=== PATIENT | female | born 1970 | race Caucasian/White ===

== ENCOUNTER 2018-02-02 14:00 | Emergency (ER) | payer OTHER ==
[2018-02-02 14:07] VITALS: RESP 18
[2018-02-02] MEDS ORDERED: SODIUM CHLORIDE 0.9% 500 ML IV STA (14:30)
--- NOTE | 2018-02-02 14:42 | ED ---
Arrhythmia/Palpitations HPI - General Chief Complaint: Arrhythmia/Palpitations Stated Complaint: low pulse Time Seen by Provider: 02/02/18 14:24 Source: patient, RN notes reviewed Mode of arrival: ambulatory Limitations: no limitations - History of Present Illness Initial Comments: This a 47-year-old female presents emergency Department chief complaint of low heart rate. Patient states that she went yesterday to [facility] for her Prolixin injection. She had was found to have a heart rate of 45. She was instructed emergency department yesterday though refuse. Patient is brought to emergency department today by [facility]. Patient has no complaints. Denies chest pain, shortness breath, headache, dizziness, nausea vomiting. Patient denies illicit drug use. Patient states that she takes her psychiatric medications as directed daily. Patient denies any prior cardiac disease. - Related Data Home Medications Medication Instructions Recorded Confirmed PARoxetine [Paxil] 10 mg PO DAILY 02/02/18 02/02/18 Paliperidone IM [Invega Sustenna] 234 mg IM Q30D 02/02/18 02/02/18 QUEtiapine [SEROquel] 400 mg PO HS 02/02/18 02/02/18 Allergies Allergy/AdvReac Type Severity Reaction Status Date / Time aspirin Allergy Unknown Verified 02/02/18 14:36 Review of Systems ROS Statement: Those systems with pertinent positive or pertinent negative responses have been documented in the HPI. ROS Other: All systems not noted in ROS Statement are negative. Past Medical History Past Medical History: No Reported History History of Any Multi-Drug Resistant Organisms: None Reported Past Surgical History: No Surgical Hx Reported Past Psychological History: Schizophrenia Smoking Status: Never smoker Past Alcohol Use History: None Reported Past Drug Use History: None Reported General Exam Limitations: no limitations General appearance: alert, in no apparent distress Head exam: Present: atraumatic, normocephalic, normal inspection Eye exam: Present: normal appearance, PERRL, EOMI. Absent: scleral icterus, conjunctival injection, periorbital swelling Neck exam: Present: normal inspection, full ROM. Absent: tenderness, meningismus, lymphadenopathy Respiratory exam: Present: normal lung sounds bilaterally. Absent: respiratory distress, wheezes, rales, rhonchi, stridor Cardiovascular Exam: Present: regular rate, normal rhythm, normal heart sounds. Absent: systolic murmur, diastolic murmur, rubs, gallop, clicks Skin exam: Present: warm, dry, intact, normal color. Absent: rash Course Vital Signs 02/02/18 02/02/18 14:03 15:59 Temperature 98.2 F Pulse Rate 65 78 Respiratory 18 18 Rate Blood Pressure 161/74 O2 Sat by Pulse 98 98 Oximetry EKG Findings - EKG Comments: EKG Findings:: EKG born at 15:50 normal sinus rhythm with rate of 71 W[place] 136 QRS 96 QT/QTC 394/428 Medical Decision Making - Medical Decision Making 47-year-old female presented to emergency from from [facility] for low heart rate. Patient's heart rate has been neck 70s to 100s in the emergency department. Patient did have multiple PVCs. She is asymptomatic. Patient was positive for cocaine and marijuana. We discussed that drug abuse can cause cardiac issues and multiple other medical issues. She will follow up with [facility] and return for any worsening symptoms. - Lab Data Result diagrams: 02/02/18 14:40 02/02/18 14:40 Lab Results 02/02/18 02/02/18 02/02/18 Range/Units 14:40 14:40 14:40 WBC 8.7 (3.8-10.6) k/uL RBC 4.36 (3.80-5.40) m/uL Hgb 13.1 (11.4-16.0) gm/dL Hct 40.3 (34.0-46.0) % MCV 92.4 (80.0-100.0) fL MCH 30.0 (25.0-35.0) pg MCHC 32.5 (31.0-37.0) g/dL RDW 13.9 (11.5-15.5) % Plt Count 292 (150-450) k/uL Neutrophils % 74 % Lymphocytes % 18 % Monocytes % 6 % Eosinophils % 1 % Basophils % 1 % Neutrophils # 6.4 (1.3-7.7) k/uL Lymphocytes # 1.5 (1.0-4.8) k/uL Monocytes # 0.5 (0-1.0) k/uL Eosinophils # 0.1 (0-0.7) k/uL Basophils # 0.0 (0-0.2) k/uL PT (9.0-12.0) sec INR (<1.2) APTT (22.0-30.0) sec Sodium 141 (137-145) mmol/L Potassium 3.7 (3.5-5.1) mmol/L Chloride 108 H (98-107) mmol/L Carbon Dioxide 24 (22-30) mmol/L Anion Gap 9 mmol/L BUN 6 L (7-17) mg/dL Creatinine 0.72 (0.52-1.04) mg/dL Est GFR (CKD-EPI)AfAm >90 (>60 ml/min/1.73 sqM) Est GFR (CKD-EPI)NonAf >90 (>60 ml/min/1.73 sqM) Glucose 140 H (74-99) mg/dL Calcium 9.2 (8.4-10.2) mg/dL Magnesium 1.9 (1.6-2.3) mg/dL Total Bilirubin 0.2 (0.2-1.3) mg/dL AST 15 (14-36) U/L ALT 14 (9-52) U/L Alkaline Phosphatase 78 (38-126) U/L Total Creatine Kinase 103 (30-135) U/L CK-MB (CK-2) 0.7 (0.0-2.4) ng/mL CK-MB (CK-2) Rel Index 0.7 Troponin I <0.012 (0.000-0.034) ng/mL Total Protein 6.2 L (6.3-8.2) g/dL Albumin 3.5 (3.5-5.0) g/dL TSH 1.010 (0.465-4.680) mIU/L Urine Opiates Screen (NotDetected) Ur Oxycodone Screen (NotDetected) Urine Methadone Screen (NotDetected) Ur Propoxyphene Screen (NotDetected) Ur Barbiturates Screen (NotDetected) U Tricyclic Antidepress (NotDetected) Ur Phencyclidine Scrn (NotDetected) Ur Amphetamines Screen (NotDetected) U Methamphetamines Scrn (NotDetected) U Benzodiazepines Scrn (NotDetected) Urine Cocaine Screen (NotDetected) U Marijuana (THC) Screen (NotDetected) 02/02/18 02/02/18 Range/Units 14:40 14:50 WBC (3.8-10.6) k/uL RBC (3.80-5.40) m/uL Hgb (11.4-16.0) gm/dL Hct (34.0-46.0) % MCV (80.0-100.0) fL MCH (25.0-35.0) pg MCHC (31.0-37.0) g/dL RDW (11.5-15.5) % Plt Count (150-450) k/uL Neutrophils % % Lymphocytes % % Monocytes % % Eosinophils % % Basophils % % Neutrophils # (1.3-7.7) k/uL Lymphocytes # (1.0-4.8) k/uL Monocytes # (0-1.0) k/uL Eosinophils # (0-0.7) k/uL Basophils # (0-0.2) k/uL PT 9.8 (9.0-12.0) sec INR 1.0 (<1.2) APTT 24.9 (22.0-30.0) sec Sodium (137-145) mmol/L Potassium (3.5-5.1) mmol/L Chloride (98-107) mmol/L Carbon Dioxide (22-30) mmol/L Anion Gap mmol/L BUN (7-17) mg/dL Creatinine (0.52-1.04) mg/dL Est GFR (CKD-EPI)AfAm (>60 ml/min/1.73 sqM) Est GFR (CKD-EPI)NonAf (>60 ml/min/1.73 sqM) Glucose (74-99) mg/dL Calcium (8.4-10.2) mg/dL Magnesium (1.6-2.3) mg/dL Total Bilirubin (0.2-1.3) mg/dL AST (14-36) U/L ALT (9-52) U/L Alkaline Phosphatase (38-126) U/L Total Creatine Kinase (30-135) U/L CK-MB (CK-2) (0.0-2.4) ng/mL CK-MB (CK-2) Rel Index Troponin I (0.000-0.034) ng/mL Total Protein (6.3-8.2) g/dL Albumin (3.5-5.0) g/dL TSH (0.465-4.680) mIU/L Urine Opiates Screen Not Detected (NotDetected) Ur Oxycodone Screen Not Detected (NotDetected) Urine Methadone Screen Not Detected (NotDetected) Ur Propoxyphene Screen Not Detected (NotDetected) Ur Barbiturates Screen Not Detected (NotDetected) U Tricyclic Antidepress Not Detected (NotDetected) Ur Phencyclidine Scrn Not Detected (NotDetected) Ur Amphetamines Screen Not Detected (NotDetected) U Methamphetamines Scrn Not Detected (NotDetected) U Benzodiazepines Scrn Not Detected (NotDetected) Urine Cocaine Screen Detected H (NotDetected) U Marijuana (THC) Screen Detected H (NotDetected) Disposition Clinical Impression: PVCs (premature ventricular contractions), Cocaine use, Marijuana use Disposition: HOME SELF-CARE Condition: Stable Instructions: Polysubstance Abuse (ED) Additional Instructions: Please return to the Emergency Department if symptoms worsen or any other concerns. Is patient prescribed a controlled substance at d/c from ED?: No Referrals: Ramirez Strar MD [Primary Care Provider] - 1-2 days Time of Disposition: 16:11
[2018-02-02 15:04] LABS: Basophils % (A) 1 %; Eosinophils # (A) 0.1 k/uL (0-0.7); Eosinophils % (A) 1 %; HCT 40.3 % (34.0-46.0); HGB 13.1 gm/dL (11.4-16.0); Lymphocytes # (A) 1.5 k/uL (1.0-4.8); Lymphocytes % (A) 18 %; MCHC 32.5 g/dL (31.0-37.0); MCV 92.4 fL (80.0-100.0); Mean Platelet Volume 6.8; Monocytes # (A) 0.5 k/uL (0-1.0); Monocytes % (A) 6 %; Neutrophils # (A) 6.4 k/uL (1.3-7.7); Neutrophils % (A) 74 %; Platelet Count 292 k/uL (150-450); RBC 4.36 m/uL (3.80-5.40); RDW 13.9 % (11.5-15.5); WBC 8.7 k/uL (3.8-10.6)
[2018-02-02 15:09] LABS: ALT 14 U/L (9-52); AST 15 U/L (14-36); Albumin 3.5 g/dL (3.5-5.0); Alkaline Phosphatase 78 U/L (38-126); Anion Gap 9 mmol/L; Blood Urea Nitrogen 6 mg/dL (7-17); Calcium 9.2 mg/dL (8.4-10.2); Carbon Dioxide 24 mmol/L (22-30); Chloride 108 mmol/L (98-107); Glucose 140 mg/dL (74-99); Magnesium 1.9 mg/dL (1.6-2.3); Partial Thromboplastin Time 24.9 sec (22.0-30.0); Potassium 3.7 mmol/L (3.5-5.1); Prothrombin Time 9.8 sec (9.0-12.0); Sodium 141 mmol/L (137-145); Total Bilirubin 0.2 mg/dL (0.2-1.3); Total Protein 6.2 g/dL (6.3-8.2)
[2018-02-02 15:18] LABS: Creatine Kinase 103 U/L (30-135)
--- NOTE | 2018-02-02 15:23 | XR ---
EXAMINATION TYPE: XR chest 2V DATE OF EXAM: 02/02/2018 COMPARISON: NONE HISTORY: Dysrhythmia, bradycardia TECHNIQUE: Frontal and lateral views of the chest are obtained. FINDINGS: Patient is rotated. Retrocardiac density with central lucency is noted. No pneumothorax or pleural effusion. Heart size is within normal limits. There are overlying cardiac leads. Pulmonary va scularity and liana within normal limits. IMPRESSION: Findings may be due to hiatal hernia. Difficult to exclude lower lobe atelectasis or pne umonia. Follow-up as indicated.
[2018-02-02 15:30] LABS: Creatine Kinase MB 0.7 ng/mL (0.0-2.4); Troponin I <0.012 ng/mL (0.000-0.034)
[2018-02-02 15:33] LABS: Amphetamine Screen,Urine Not Detected (NotDetected); Barbiturate Screen,Urine Not Detected (NotDetected); Benzodiazepines Screen,Urine Not Detected (NotDetected); Cocaine Screen,Urine Detected (NotDetected); Methadone Screen, Urine Not Detected (NotDetected); Opiate Screen,Urine Not Detected (NotDetected); Oxycodone Screen, Urine Not Detected (NotDetected); Phencyclidine Screen,Urine Not Detected (NotDetected); Tricyclic Antidepressant,Urine Not Detected (NotDetected); Urn Cannabinoid Scrn Detected (NotDetected)
[2018-02-02 16:09] VITALS: BP 140/87; PULSE 83
[2018-02-02 16:18] VITALS: TEMP 98
== END 2018-02-02 16:15 | disposition home or self-care (01) ==
LOC: EC 14:00
DX: I49.3 Ventricular premature depolarization (principal); F14.90 Cocaine use, unspecified, uncomplicated; F12.90 Cannabis use, unspecified, uncomplicated; F20.9 Schizophrenia, unspecified; Z79.899 Other long term (current) drug therapy; Z88.6 Allergy status to analgesic agent
CPT/HCPCS: 36415; 71046; 80053; 80306; 82550; 82553; 83735; 84443; 84484; 85025; 85610; 85730; 93005; 99285

== ENCOUNTER 2019-12-06 09:20 | Emergency (ER) | payer OTHER ==
[2019-12-06 09:32] VITALS: RESP 18
--- NOTE | 2019-12-06 09:54 | ED ---
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 Patient states she does not know why she is here. Patient does admit that she used to use drugs. The door states that she's been petition for not caring for herself reported is not taking her medications has not been going to her appointment. Patient was checked on by [facility]. Her living situation and appears to be unkempt as herself has been on. She has no physical complaints denies being suicidal or homicidal. (Allan Fagan) - Related Data Home Medications Medication Instructions Recorded Confirmed PARoxetine [Paxil] 10 mg PO DAILY 02/02/18 12/06/19 QUEtiapine [SEROquel] 400 mg PO HS 02/02/18 12/06/19 Allergies Allergy/AdvReac Type Severity Reaction Status Date / Time No Known Allergies Allergy Verified 12/06/19 09:32 Review of Systems ROS Other: All systems not noted in ROS Statement are negative. <Allan Fagan - Last Filed: 12/06/19 09:52> ROS Other: All systems not noted in ROS Statement are negative. <Al Murray - Last Filed: 12/06/19 13:29> ROS Statement: Those systems with pertinent positive or pertinent negative responses have been documented in the HPI. Past Medical History Past Medical History: No Reported History History of Any Multi-Drug Resistant Organisms: None Reported Past Surgical History: No Surgical Hx Reported Past Psychological History: Schizophrenia Smoking Status: Current every day smoker Past Alcohol Use History: None Reported Past Drug Use History: Cocaine, Marijuana <Allan Fagan - Last Filed: 12/06/19 09:52> General Exam Limitations: no limitations General appearance: alert, in no apparent distress Head exam: Present: atraumatic, normocephalic, normal inspection Eye exam: Present: normal appearance, PERRL, EOMI. Absent: scleral icterus, conjunctival injection, periorbital swelling Neck exam: Present: normal inspection, full ROM Respiratory exam: Present: normal lung sounds bilaterally. Absent: respiratory distress, wheezes, rales, rhonchi, stridor Cardiovascular Exam: Present: regular rate, normal rhythm, normal heart sounds. Absent: systolic murmur, diastolic murmur, rubs, gallop, clicks GI/Abdominal exam: Present: soft, normal bowel sounds. Absent: distended, tenderness, guarding, rebound, rigid Neurological exam: Present: alert, oriented X3 Psychiatric exam: Present: flat affect Skin exam: Present: warm, dry, intact, normal color. Absent: rash <Allan Fagan - Last Filed: 12/06/19 09:52> Course <Al Murray - Last Filed: 12/06/19 13:29> Vital Signs 12/06/19 09:26 Temperature 98.1 F Pulse Rate 81 Respiratory 18 Rate Blood Pressure 131/83 O2 Sat by Pulse 98 Oximetry - Reevaluation(s) Reevaluation #1: 12/06/19 13:27 PA supervision: I personally do a [id number] evaluation the patient he has present on petition for evaluation she has a history of schizophrenia stent taking care of herself and taking medication. I did fill out a clinical certification on this patient. (Al Murray) Medical Decision Making - Lab Data Lab Results 12/06/19 Range/Units 09:50 Urine Opiates Screen Not Detected (NotDetected) Ur Oxycodone Screen Not Detected (NotDetected) Urine Methadone Screen Not Detected (NotDetected) Ur Propoxyphene Screen Not Detected (NotDetected) Ur Barbiturates Screen Not Detected (NotDetected) U Tricyclic Antidepress Not Detected (NotDetected) Ur Phencyclidine Scrn Not Detected (NotDetected) Ur Amphetamines Screen Not Detected (NotDetected) U Methamphetamines Scrn Not Detected (NotDetected) U Benzodiazepines Scrn Not Detected (NotDetected) Urine Cocaine Screen Not Detected (NotDetected) U Marijuana (THC) Screen Not Detected (NotDetected) Disposition <Allan Fagan - Last Filed: 12/06/19 09:52> <Al Murray - Last Filed: 12/06/19 13:29> Clinical Impression: Schizophrenia Disposition: ADMITTED IP TO THIS HOSP Condition: Fair Referrals: None,Stated [Primary Care Provider] - 1-2 days
[2019-12-06 10:49] LABS: Amphetamine Screen,Urine Not Detected (NotDetected); Barbiturate Screen,Urine Not Detected (NotDetected); Benzodiazepines Screen,Urine Not Detected (NotDetected); Cocaine Screen,Urine Not Detected (NotDetected); Methadone Screen, Urine Not Detected (NotDetected); Opiate Screen,Urine Not Detected (NotDetected); Oxycodone Screen, Urine Not Detected (NotDetected); Phencyclidine Screen,Urine Not Detected (NotDetected); Tricyclic Antidepressant,Urine Not Detected (NotDetected); Urn Cannabinoid Scrn Not Detected (NotDetected)
[2019-12-06 14:27] LABS: Basophils % (A) 0 %; Eosinophils # (A) 0.1 k/uL (0-0.7); Eosinophils % (A) 1 %; HCT 37.3 % (34.0-46.0); HGB 12.1 gm/dL (11.4-16.0); Lymphocytes # (A) 2.1 k/uL (1.0-4.8); Lymphocytes % (A) 23 %; MCH 30.5 pg (25.0-35.0); MCHC 32.4 g/dL (31.0-37.0); MCV 94.1 fL (80.0-100.0); Mean Platelet Volume 6.6; Monocytes # (A) 0.2 k/uL (0-1.0); Monocytes % (A) 3 %; Neutrophils # (A) 6.7 k/uL (1.3-7.7); Neutrophils % (A) 72 %; Platelet Count 393 k/uL (150-450); RBC 3.96 m/uL (3.80-5.40); RDW 13.8 % (11.5-15.5); WBC 9.3 k/uL (3.8-10.6)
[2019-12-06 14:31] LABS: Appearance,Urine Clear (Clear); Bacteria,Urine Rare /hpf; Bilirubin,Urine Negative (Negative); Blood,Urine Negative (Negative); Color,Urine Light Yellow; Glucose,Urine (UA) Negative (Negative); Ketones,Urine Negative (Negative); Leukocyte Esterase,Urine Small (Negative); Nitrite,Urine Positive (Negative); PH, Urine 5.5 (5.0-8.0); Protein,Urine Negative (Negative); RBC,Urine 1 /hpf (0-5); Specific Gravity,Urine 1.007 (1.001-1.035); Squamous Epithelial Cell,Urine 1 /hpf (0-4); Urobilinogen,Urine <2.0 mg/dL (<2.0); WBC,Urine 5 /hpf (0-5)
[2019-12-06 14:53] LABS: ALT 14 U/L (4-34); AST 22 U/L (14-36); African American GFR (CKD) >90 (>60 ml/min/1.73 sqM); Albumin 3.2 g/dL (3.5-5.0); Alkaline Phosphatase 69 U/L (38-126); Anion Gap 5 mmol/L; Blood Urea Nitrogen 10 mg/dL (7-17); Calcium 8.7 mg/dL (8.4-10.2); Carbon Dioxide 26 mmol/L (22-30); Chloride 105 mmol/L (98-107); Glucose 89 mg/dL (74-99); Non-African American GFR(CKD) >90 (>60 ml/min/1.73 sqM); Potassium 4.3 mmol/L (3.5-5.1); Sodium 136 mmol/L (137-145); Total Bilirubin 0.4 mg/dL (0.2-1.3); Total Protein 5.9 g/dL (6.3-8.2)
[2019-12-06 18:19] VITALS: BP 132/80; PULSE 80; TEMP 98.2
== END 2019-12-06 20:23 | disposition other institution (70) ==
LOC: EC 09:20 → EEVIPCON 09:20 → EC 20:23
DX: F20.9 Schizophrenia, unspecified (principal); F17.200 Nicotine dependence, unspecified, uncomplicated; Z79.899 Other long term (current) drug therapy
CPT/HCPCS: 36415; 80053; 80306; 81001; 81025; 82075; 85025; 99284

== ENCOUNTER 2020-11-13 19:13 | Inpatient (IN) | payer MEDICAID, OTHER ==
--- NOTE | 2020-11-13 19:47 | ED ---
General Adult HPI - General Source: patient, EMS, RN notes reviewed Mode of arrival: EMS Limitations: altered mental status <Allan Fagan - Last Filed: 11/13/20 20:50> <Al Kinney - Last Filed: 11/13/20 20:59> - General Stated complaint: Mental Health Time Seen by Provider: 11/13/20 19:15 - History of Present Illness Initial comments: 50-year-old female presents to the emergency Department with police, via EMS for psychiatric evaluation. Patient was found breaking windows are department. Patient has history of schizophrenia. She has meant to cocaine use, alcohol use. Patient denies any physical injury denies any lacerations. Patient states she does get Paxil and Haldol. (Allan Fagan) - Related Data Home Medications Medication Instructions Recorded Confirmed No Known Home Medications 11/13/20 11/13/20 Allergies Allergy/AdvReac Type Severity Reaction Status Date / Time No Known Allergies Allergy Verified 12/06/19 09:32 Review of Systems ROS Other: All systems not noted in ROS Statement are negative. <Allan Fagan - Last Filed: 11/13/20 20:50> ROS Other: All systems not noted in ROS Statement are negative. <Al Kinney - Last Filed: 11/13/20 20:59> ROS Statement: Those systems with pertinent positive or pertinent negative responses have been documented in the HPI. Past Medical History Past Medical History: No Reported History History of Any Multi-Drug Resistant Organisms: None Reported Past Surgical History: No Surgical Hx Reported Past Psychological History: Schizophrenia Smoking Status: Current every day smoker Past Alcohol Use History: None Reported Past Drug Use History: Cocaine, Marijuana <Allan Fagan - Last Filed: 11/13/20 20:50> General Exam Limitations: altered mental status General appearance: alert, in no apparent distress ENT exam: Present: mucous membranes moist. Absent: normal exam, normal oropharynx (No dentition) Neck exam: Present: normal inspection, full ROM. Absent: tenderness, meningismus, lymphadenopathy Respiratory exam: Present: normal lung sounds bilaterally. Absent: respiratory distress, wheezes, rales, rhonchi, stridor Cardiovascular Exam: Present: regular rate, normal rhythm, normal heart sounds. Absent: systolic murmur, diastolic murmur, rubs, gallop, clicks Neurological exam: Present: alert Psychiatric exam: Present: anxious Skin exam: Present: warm, dry, intact, normal color. Absent: rash <Allan Fagan - Last Filed: 11/13/20 20:50> Course Vital Signs 11/13/20 19:15 Temperature 98.1 F Pulse Rate 98 Respiratory 16 Rate Blood Pressure 131/88 O2 Sat by Pulse 95 Oximetry Medical Decision Making <Allan Fagan - Last Filed: 11/13/20 20:50> <Al Kinney - Last Filed: 11/13/20 20:59> - Medical Decision Making Patient will be admitted for psychiatric treatment. (lAlan Fagan) Patient had been evaluated by EPS and does require inpatient psychiatric evaluat ion treatment. I did complete a clinical certification on this patient after evaluation. She is acutely psychotic. (Al Kinney) Disposition <Allan Fagan - Last Filed: 11/13/20 20:50> <Al Kinney - Last Filed: 11/13/20 20:59> Clinical Impression: Psychosis, Schizophrenia Disposition: TRANSFER TO PSYCH HOSP/UNIT Condition: Stable Referrals: None,Stated [Primary Care Provider] - 1-2 days
[2020-11-13] MEDS ORDERED: MAGNESIUM HYDROXIDE 2,400 MG/10 ML CUP PO PRN (22:24)
[2020-11-13] MEDS ORDERED: ACETAMINOPHEN TAB 325 MG TAB PO PRN (22:24)
[2020-11-13] MEDS ORDERED: LORazepam 1 MG TAB PO PRN (22:24)
[2020-11-13] MEDS ORDERED: MAG HYDROX/AL HYDROX/SIMETH 30 ML CUP PO PRN (22:24)
[2020-11-13] MEDS ORDERED: HALOPERIDOL LACTATE 5 MG/ML 1 ML VIAL IM PRN (22:26)
[2020-11-13] MEDS ORDERED: haloperidoL 1 MG TAB PO PRN (22:26)
[2020-11-13] MEDS ORDERED: LORazepam 2 MG/ML INJ IM PRN (22:26)
[2020-11-13 22:56] LABS: Amphetamine Screen,Urine Not Detected (NotDetected); Benzodiazepines Screen,Urine Not Detected (NotDetected); Cocaine Screen,Urine Not Detected (NotDetected); Methadone Screen, Urine Not Detected (NotDetected); Opiate Screen,Urine Not Detected (NotDetected); Phencyclidine Screen,Urine Not Detected (NotDetected); Tricyclic Antidepressant,Urine Not Detected (NotDetected); Urn Cannabinoid Scrn Detected (NotDetected)
[2020-11-13 22:57] LABS: Barbiturate Screen,Urine Not Detected (NotDetected); Oxycodone Screen, Urine Not Detected (NotDetected)
[2020-11-13 23:22] LABS: Appearance,Urine Cloudy (Clear); Bacteria,Urine Few /hpf; Bilirubin,Urine Negative (Negative); Blood,Urine Trace (Negative); Color,Urine Yellow; Glucose,Urine (UA) Negative (Negative); Ketones,Urine Negative (Negative); Leukocyte Esterase,Urine Moderate (Negative); Mucus,Urine Rare /hpf; Nitrite,Urine Negative (Negative); PH, Urine 5.5 (5.0-8.0); Protein,Urine Negative (Negative); RBC,Urine 1 /hpf (0-5); Specific Gravity,Urine 1.023 (1.001-1.035); Squamous Epithelial Cell,Urine <1 /hpf (0-4); WBC,Urine 25 /hpf (0-5)
--- NOTE | 2020-11-14 04:53 | P.PN ---
Progress Note - Text Progress Note Date: 11/14/20 patient was not appropriate for evaluation today
[2020-11-14] MEDS: haloperidoL 5 MG TAB PO SCH ×2 (13:44→22:23)
--- NOTE | 2020-11-14 15:36 | HP ---
HISTORY AND PHYSICAL DATE OF SERVICE: 11/14/2020 IDENTIFYING DATA: The patient is a 50-year-old female. She resides in her own apartment. She presented to the ED following petition completed by Police. HISTORY OF PRESENTING ILLNESS: The patient did not provide any information and in fact declined to talk altogether. According to records, the patient was at her apartment. She apparently was breaking windows in her apartment. Neighbors called police. The police came to the apartment. She was sitting in the apartment naked. Police found that her apartment essentially was in an unlivable situation. She had a garbage stockpiled and the apartment windows were broken. There were cockroaches and other bugs throughout the apartment. The patient resisted talking to police and did not provide any information to police in regards to her current situation. [facility] provided information about the patient, including that she was open for care from 1997 until 2019. She was followed by [facility] from [id number]. She has a diagnosis of schizophrenia. She had 2 past State Hospitalizations at [facility] for one month each in 1997 in 1998. She had 3 previous psychiatric hospitalizations at this facility in 1998, 2002 and 2004. Her last inpatient was on November 2019. She has had several crisis residential placements and adult day treatment in the past. Her last medications were noted to be Paxil 10 mg a day, Seroquel 400 mg at bedtime, Invega 234 mg IM monthly, Abilify 5 mg daily and Aristada 186 mg IM q.2 months. It is unclear when the last time she was taking any medications. Her case at [facility] was closed in February 2020. We have no further information available at present. The patient is admitted for further evaluation. The patient has been diagnosed with schizophrenia. SUBSTANCE USE HISTORY: She has had a past use of cocaine and marijuana. PAST MEDICAL HISTORY: Uncertain. FAMILY AND SOCIAL HISTORY: No information available. She has a 6 grade education. She has had a public guardian since 1992. MENTAL STATUS EXAM: Patient was lying in bed. She was awake. She declined to answer any questions. I posed a number of questions to her. Her only comment was that she had talked to the nurse already and she did not have anything more to say. She had a blunted affect. Mood issues and thought disorder issues were difficult to assess. It was unclear whether she had any thoughts of harm. She did not respond to any cognitive questions. PHYSICAL EXAMINATION: As per medical consultation of Dr. Pearson. ASSESSMENT: This is a 50-year-old female presents with schizophrenia. It appears that she has stopped taking medications most likely a number of months back. We have no information about her best level of function over the last year or over the last several years. She has had long-term mental health issues and mental health intervention. It does appear as though she has become more significantly psychotic leading to disruptive behavior in her home that brought police to her attention. STRENGTHS: Include that she has been able to maintain herself to some degree independently. WEAKNESS: Includes her inability to adequately care for herself in the present day. DIAGNOSIS: Schizophrenia. RECOMMENDATIONS: Patient will be admitted for comprehensive medical psychiatric and psychosocial evaluation. We will engage the patient in individual and group therapeutic activities. I will start the patient on Haldol 10 mg twice a day. We could consider using IM medication if she prefers over oral. She is on petition. We may ultimately revert back to using IM medications if necessary. We will focus on stabilization and discharge planning. MMLAZARUSL / ILDAN: [id number] /
[2020-11-15 07:35] LABS: Basophils % (A) 0 %; Eosinophils # (A) 0.1 k/uL (0-0.7); Eosinophils % (A) 2 %; HCT 40.2 % (34.0-46.0); HGB 13.4 gm/dL (11.4-16.0); Lymphocytes % (A) 30 %; MCH 31.7 pg (25.0-35.0); MCHC 33.4 g/dL (31.0-37.0); MCV 94.7 fL (80.0-100.0); Mean Platelet Volume 7.3; Monocytes # (A) 0.4 k/uL (0-1.0); Monocytes % (A) 7 %; Neutrophils # (A) 3.7 k/uL (1.3-7.7); Neutrophils % (A) 58 %; Platelet Count 231 k/uL (150-450); RBC 4.24 m/uL (3.80-5.40); RDW 13.6 % (11.5-15.5); WBC 6.4 k/uL (3.8-10.6)
[2020-11-15 07:53] LABS: ALT 14 U/L (4-34); AST 23 U/L (14-36); African American GFR (CKD) >90 (>60 ml/min/1.73 sqM); Albumin 3.4 g/dL (3.5-5.0); Alkaline Phosphatase 63 U/L (38-126); Anion Gap 3 mmol/L; Blood Urea Nitrogen 16 mg/dL (7-17); Calcium 8.6 mg/dL (8.4-10.2); Carbon Dioxide 29 mmol/L (22-30); Chloride 106 mmol/L (98-107); Glucose 84 mg/dL (74-99); Non-African American GFR(CKD) >90 (>60 ml/min/1.73 sqM); Potassium 4.4 mmol/L (3.5-5.1); Sodium 138 mmol/L (137-145); Total Bilirubin 0.3 mg/dL (0.2-1.3)
[2020-11-15] MEDS: haloperidoL 5 MG TAB PO SCH ×2 (09:21→21:11)
[2020-11-15 14:02] LABS: Chol/HDL Ratio 3.61; Cholesterol 159 mg/dL (0-200); LDL Cholesterol,Calculated 99.8 mg/dL (0.0-131.0)
[2020-11-15 15:05] LABS: Hemoglobin A1C 5.5 % (4.0-6.0)
--- NOTE | 2020-11-15 20:32 | P.HPIM ---
History of Present Illness H&P Date: 11/15/20 The patient was seen with the [facility] RN Cindy. I was never alone with the patient. The patient is a 50 yo F with a PMH of schizophrenia who was brought into the emergency room under police custody due to strange and aggressive behavior. The patient was admitted to the mental health unit where she was seen and evaluated. The patient reports she does not recall why she was brought into the emergency room. She says that she is currently homeless.she denied any physical complaints at the time of interview. Denied chest discomfort, shortness of breath, fever, chills, nausea, vomiting, abdominal pain, diarrhea. Denied tobacco, alcohol, or drug abuse. urine toxicology in the emergency room was positive for marijuana. Review of systems: Pertinent positives and negatives as discussed in HPI, a complete review of systems was performed and all other systems are negative. Physical examination: General: non toxic, no distress, appears older than stated age, frail Derm: scattered healing ulcers with scabs, no unusual ecchymoses, warm, dry Head: atraumatic, normocephalic, symmetric Eyes: EOMI, no lid lag, anicteric sclera, pupils equal round reactive to light ENT: Nose and ears atraumatic, no thrush, no pharyngeal erythema Neck: No thyromegaly, no cervical lymphadenopathy, trachea midline, supple Mouth: no lip lesion, mucus membranes moist Cardiovascular: S1S2 reg, no murmur, positive posterior tibial pulse bilateral, no edema, capillary refill less than 2 seconds Lungs: CTA bilateral, no rhonchi, no rales , no accessory muscle use Abdominal: soft, nontender to palpation, no guarding, no appreciable organomegaly, normal bowel sounds Ext: no gross muscle atrophy, no contractures, Neuro: CN II-XI grossly intact, no focal deficits noted Psych: Alert, oriented, appropriate affect Assessment/plan Marijuana abuse -Advised on the importance of cessation Schizophrenia with psychosis -As per psychiatry Thank you for allowing us to participate in the care of this patient. We will follow peripherally. Do not hesitate to contact us with questions. Someone can be reached from the [facility] hospitalist group at all hours of the day at [phone]. Past Medical History Past Medical History: No Reported History Additional Past Medical History / Comment(s): polysubstance abuse. History of Any Multi-Drug Resistant Organisms: None Reported Past Surgical History: No Surgical Hx Reported Additional Past Surgical History / Comment(s): None stated Past Anesthesia/Blood Transfusion Reactions: No Reported Reaction Past Psychological History: Schizophrenia Additional Psychological History / Comment(s): polysubstance abuse. Smoking Status: Unknown if ever smoked Past Alcohol Use History: None Reported Past Drug Use History: Cocaine, Marijuana Medications and Allergies Home Medications Medication Instructions Recorded Confirmed Type No Known Home Medications 11/13/20 11/13/20 History Allergies Allergy/AdvReac Type Severity Reaction Status Date / Time No Known Allergies Allergy Verified 11/14/20 16:33 Physical Exam Vitals: Vital Signs Temp Pulse Resp BP 11/15/20 06:41 97.6 F 39 L 18 129/61 Results CBC & Chem 7: 11/15/20 07:02 11/15/20 07:02 Labs: Abnormal Lab Results - Last 24 Hours (Table) 11/15/20 Range/Units 07:02 Total Protein 6.0 L (6.3-8.2) g/dL Albumin 3.4 L (3.5-5.0) g/dL Thrombosis Risk Factor Assmnt - Choose All That Apply Each Factor Represents 1 point: Age 41-60 years Thrombosis Risk Factor Assessment Total Risk Factor Score: 1 Thrombosis Risk Factor Assessment Level: Low Risk
--- NOTE | 2020-11-16 05:35 | PN ---
PROGRESS NOTE DATE OF SERVICE: 11/15/2020 CHIEF COMPLAINT: The patient was psychotic. She had disorganized and destructive behavior. The apartment where she resides was totally unlivable with garbage and insect infestation. INTERVAL HISTORY: Patient has been doing fair. She had a quiet day yesterday. She spent quite a bit pf time in her room. Often she would just be lying in bed with covers pulled up over her head. She would come out occasionally. She accepted taking medications and in fact came down to the nursing station in anticipation that medications would be started for her. For the most part she communicates minimally. She will say a word or two when asked questions, though she does not always respond to questions at all. She slept fairly well last night. Today she has been up. Again, she has been in her bed much of the early part of the morning. She has not attended groups. She has been taking her medications. She is minimally cooperative. She has eaten a limited amount of food. When I saw her today, she was in her room. She barely responded to any questions and when she did respond, it seemed to be appropriate what she was saying. She did not voice any immediate concerns. When I asked her if she had any problems with her medications she said no. MENTAL STATUS: Patient was lying in bed. She gave minimal eye contact at best. Psychomotor activity was slowed. She responded with 1 or 2 word responses. Some of the time she would not respond at all to questions. Generally her thoughts were appropriate to the questions asked. Her affect was flat. Her mood depressed. She seemed significantly distressed and anxious. Her thoughts are disorganized and of a psychotic nature. She did not make any indications of thoughts of harm. She was oriented and alert. ASSESSMENT: I will continue the current diagnosis and treatment plan. I will continue psychotropic medications the same, namely Haldol 10 mg twice a day as her only psychotropic medication. I had a contact with the patient's guardian through the courts. The guardian's most immediate concern was hoping that she would get re-established on medications as she has not been on medications since last fall. In addition, hoping that she will get connected to [facility] for ongoing followup. We will focus on stabilization and discharge planning. MMLAZARUSL / ILDAN: [id number] /
[2020-11-16] MEDS: haloperidoL 5 MG TAB PO SCH ×2 (08:36→19:54)
--- NOTE | 2020-11-16 18:46 | PN ---
PROGRESS NOTE DATE OF SERVICE: 11/16/2020. CHIEF COMPLAINT: The patient was psychotic. She had disorganized and destructive behavior. The apartment where she resides was totally unlivable with garbage and insect infestation. INTERVAL HISTORY: The patient continues to isolate. She spends some most of the day in her room in bed. It is not always clear that she is sleeping when she is in bed. She will come out for medications. She interacts minimally with others. She will respond appropriately to staff. Appetite has been down. She has not had specific complaints relating to Haldol, which as her only psychotropic medication. As yet I have not observed any issues of EPS or movement disorder. MENTAL STATUS EXAM: The patient was in her bed. She gave a little eye contact. She responded to a few questions with one-word responses. She did not say much more than that. She had a flat affect. Her mood was reserved. It was difficult to assess level of distress. She appears to continue to show psychotic thinking. She does not make indications of thoughts of harm. She appears to be oriented to her situation. ASSESSMENT: I will continue the current diagnosis and treatment plan. I will decrease her Haldol to just 10 mg at bedtime. It is unclear if she is getting excessive sedation from Haldol, which leads her to lay in her bed much of the day, some of which she is sleeping, at other times not come. She has been cooperative with care, which may be at least an early indication of some response to her medication. We will continue to monitor for some indications of improved function. We will focus on stabilization and discharge planning. JAMAAL / ANGELO: [id number] /
--- NOTE | 2020-11-17 14:06 | P.PN ---
Progress Note - Text Progress Note Date: 11/17/20 Interval History: Patient was seen in the room and was directable and agreeable to speak with property underwriter. 50-year-old female presents to the emergency Department with police, via EMS for psychiatric evaluation. Patient was found breaking windows are department. Patient has history of schizophrenia. She has meant to cocaine use, alcohol use. . Patient denies any side effects from the medications and has been compliant with meds. Mental Status Exam: General Appearance: Patient appears to be stated age is alert, directable, and cooperative. Behavior: Patient is calmly seated without any agitated behavior. Speech: Patient's speech is fluent and nonpressured. Mood/Affect: Mood is improving mildly, affect is congruent and constricted. Suicidality/Homicidality: Patient denies having any suicidal or homicidal ideation intent or plan. Perceptions: Patient denies any visual hallucinations and denies any auditory hallucinations Though content/process: There is no evidence of any delusional thought content and thought process is linear and goal-directed. Memory and concentration: AOX3, grossly intact for the purposes of this session Judgment and insight: Improving mildly Assessment Patient continues to maintain the status quo Plan: -Patient continues to meet criteria for inpatient psychiatric admission for symptom stabilization and safety. -Medications: Continue medication as before -When necessary Ativan and Haldol for agitation/aggression. --SW on board for discharge planning. Encouraged the patient to participate in milieu.
[2020-11-17] MEDS: CEPHALEXIN 500 MG CAP PO SCH ×2 (18:13→20:19)
[2020-11-17] MEDS: haloperidoL 5 MG TAB PO SCH (20:19)
[2020-11-18] MEDS: CEPHALEXIN 500 MG CAP PO SCH ×3 (08:28→20:02)
--- NOTE | 2020-11-18 10:26 | P.PN ---
Progress Note - Text Progress Note Date: 11/18/20 Interval History: Patient was seen in her room and was directable and agreeable to speak with administrative underwriter . The patient is a 50 yo F with a PMH of schizophrenia who was brought into the emergency room under police custody due to strange and aggressive behavior. At this time patient denies any suicidal or homical ideations, intent or plan. Patient denies any auditory, visual hallucinations and denies any paranoia or delusions. Patient denies any side effects from the medications and has been compliant with meds. Mental Status Exam: General Appearance: Patient appears to be stated age is alert, directable, and cooperative. Behavior: Patient is calmly seated without any agitated behavior. Speech: Patient's speech is fluent and nonpressured. Mood/Affect: Mood is improving mildly, affect is congruent and constricted. Suicidality/Homicidality: Patient denies having any suicidal or homicidal ideation intent or plan. Perceptions: Patient denies any visual hallucinations and denies any auditory hallucinations Memory and concentration: AOX3, grossly intact for the purposes of this session Judgment and insight: Improving mildly Assessment Psychosis, Schizophrenia Plan: -Patient continues to meet criteria for inpatient psychiatric admission for symptom stabilization and safety. -Medications: Continue medication as before -When necessary Ativan and Haldol for agitation/aggression. -SW on board for discharge planning. Encouraged the patient to participate in milieu.
[2020-11-18] MEDS: haloperidoL 5 MG TAB PO SCH (20:02)
[2020-11-19] MEDS: CEPHALEXIN 500 MG CAP PO SCH ×3 (09:01→20:15)
--- NOTE | 2020-11-19 13:21 | P.PN ---
Progress Note - Text Progress Note Date: 11/19/20 Interval History: Patient was seen resting in bed and was directable and agreeable to speak with adjusto writer operator in her room. Patient is currently denying any suicidal or homicidal ideation, intention, and/or plan. She is not reporting any auditory or visual hallucinations. She is denying any paranoia or delusions. In regards to events leading up to this hospitalization, the patient denies that she acted out of the ordinary. She does report that the medication appears to be helping but is vague as to what the target symptoms are. There is also concern that the patient is unable to return back to her apartment due to the property damage she incurred. She is not reporting any issues with sleep or appetite. She has been adherent with the medications and is not reporting any significant side effects at this time. The patient is fixated on discharge today. Mental Status Exam: General Appearance: Patient appears to be older than stated age is alert, directable, and cooperative. Behavior: Patient is calmly seated without any agitated behavior. Eye contact is appropriate. Speech: Patient's speech is fluent and nonpressured. Mood/Affect: Mood is improving mildly, affect is congruent and blunted. Suicidality/Homicidality: Patient denies having any suicidal or homicidal ideation intent or plan. Perceptions: Patient denies any visual hallucinations and denies any auditory hallucinations Though content/process: There is no evidence of any delusional thought content and thought process is linear and goal-directed. Memory and concentration: AOX3, grossly intact for the purposes of this session Judgment and insight: Poor Vital Signs Temp 97.3 F L 11/19/20 05:36 Pulse 95 11/19/20 05:36 Resp 18 11/19/20 05:36 BP 101/58 11/19/20 05:36 Pulse Ox 97 11/13/20 22:53 Intake & Output 11/18/20 11/19/20 11/19/20 18:59 06:59 18:59 Weight 49.7 kg Assessment Schizophrenia Plan: -Patient continues to meet criteria for inpatient psychiatric admission for symptom stabilization and safety. Patient is scheduled to meet with the environmental attorney today and states that she is going to defer. -Medications: Increase Haldol to 12.5 mg by mouth at bedtime for psychosis Continue Keflex 500 mg by mouth 3 times a day -When necessary Ativan and Haldol for agitation/aggression. -SW on board for discharge planning. Encouraged the patient to participate in milieu.
[2020-11-19] MEDS: haloperidoL 5 MG TAB PO SCH (20:15)
[2020-11-20 07:16] VITALS: PULSE 55; RESP 16
[2020-11-20] MEDS: CEPHALEXIN 500 MG CAP PO SCH ×3 (08:19→20:59)
--- NOTE | 2020-11-20 13:30 | P.PN ---
Progress Note - Text Progress Note Date: 11/20/20 Interval History: Patient was seen resting in bed and was directable and agreeable to speak with keno writer/runner in her room. the patient is currently denying any suicidal or homicidal ideation, intention, and/or plan. She is denying any auditory or visual hallucinations. She is not reporting any paranoia or other delusions. She has been adherent with the medications not reporting significant side effects at this time. She continues to express a strong desire for discharge. There has been a concern regarding discharge planning as the patient's guardian is refusing the patient to return to her prior home. At this time, the patient is currently awaiting placement for discharge. Mental Status Exam: General Appearance: Patient appears to be older than stated age is alert, directable, and cooperative. Behavior: Patient is calmly seated without any agitated behavior. Eye contact is appropriate. Speech: Patient's speech is fluent and nonpressured. Mood/Affect: Mood is doing fine, affect is congruent and blunted. Suicidality/Homicidality: Patient denies having any suicidal or homicidal ideation intent or plan. Perceptions: Patient denies any visual hallucinations and denies any auditory hallucinations Though content/process: There is no evidence of any delusional thought content and thought process is linear and goal-directed. Memory and concentration: AOX3, grossly intact for the purposes of this session Judgment and insight: Poor Vital Signs Temp 97.3 F L 11/20/20 07:15 Pulse 55 L 11/20/20 07:15 Resp 16 11/20/20 07:15 BP 104/77 11/20/20 07:15 Pulse Ox 96 11/20/20 07:15 Assessment Schizophrenia Plan: -Patient continues to meet criteria for inpatient psychiatric admission for symptom stabilization and safety. Patient deferred. -Medications: Continue Haldol 12.5 mg by mouth at bedtime for psychosis Continue Keflex 500 mg by mouth 3 times a day -When necessary Ativan and Haldol for agitation/aggression. -SW on board for discharge planning. Encouraged the patient to participate in milieu.
[2020-11-20 14:20] VITALS: BMI 18.8
[2020-11-20] MEDS: haloperidoL 5 MG TAB PO SCH (20:11)
[2020-11-21 06:41] VITALS: BP 129/66; TEMP 97.4
[2020-11-21] MEDS: CEPHALEXIN 500 MG CAP PO SCH (08:10)
--- NOTE | 2020-11-21 11:20 | P.DS ---
Providers Date of admission: 11/13/20 22:00 Expected date of discharge: 11/21/20 Attending physician: Trevor La MD Consults: 11/13/20 22:24 Consult Physician Routine Consulting Provider: Gudelia Guzmán Consult Reason/Comments: H&P and medical Do you want consulting provider notified?: Yes Primary care physician: Stated None - Discharge Diagnosis(es) (1) Schizophrenia Current Visit: Yes Status: Acute Hospital Course: Admission HPI: Initial psychiatric evaluation was completed by Dr. Hernandes on 11/14/2020 who wrote: "The patient is a 50-year-old female who resides in her own apartment. She presented to emergency department following a petition completed by police. The patient did not provide any information in fact declined to talk all together. According to records, the patient was at her apartment. She apparently breaking windows in her apartment. Neighbors called police. The police came to the apartment. She was sitting in the apartment naked. Police found that her apartment was essentially an unlivable situation. She had garbage stockpiled in the apartment windows were broken. There are cockroaches and other books that department. The patient resisted talking to police did not provide information to the police regards to her current situation. [facility] provided information about the patient, including that she was open for care from 1997 until 2019. She is followed by [facility] from 2005 to 2010. She has a diagnosis of schizophrenia. She has had 2 state hospitalizations at [facility] for one month each in 1997 and in 1998. She 3 previous psychiatric admissions at this facility 1998, 2002, and 2004. Her last inpatient was on 2019. She has had several crisis residential placements in adult day treatment in the past. Hospital course: Upon admission to the unit patient was initially presenting as uncooperative and guarded and provide little to no information to the admitting provider. The patient was initially started on Haldol 10 mg twice a day for management of psychosis. She was determined to be somewhat sedated on this regimen and the Haldol was decreased to 10 mg at bedtime. Despite this, the patient continued to be minimal and conversation and denied any significant psychiatric symptoms. When evaluated by this provider, the patient continued to deny any symptoms but was unable to provide any significant history of the events leading up to her admission. When asked about her housing situation, the patient expressed uncertainty. Haldol was increased to 12.5 mg at bedtime. The patient was adherent to medications and was tolerating them well. The patient was stable for discharge, however placement was an issue. After discussion with [facility] in the patient's guardian, the patient would be sent to [facility]. On the day of discharge, the patient is not reporting any suicidal or homicidal ideation, intention, and/or plan. She is not reporting any auditory or visual hallucinations. She denies any firearms or other weapons. No paranoia or other delusional thoughts. The patient does not have a significant history of substance abuse however was counseled on abstaining from all substances including alcohol and marijuana. She continues to be minimal and conversation and displays a significantly flat affect. This appears to be the patient's baseline. She was informed to be adherent with her medications and to follow up with her aftercare appointments Mental status exam: General Appearance: Patient appears to be stated age is alert, and cooperative. Patient is in no acute distress and has fair hygiene and grooming Behavior: Patient is calmly seated without any agitated behavior. Psychomotor activity appears normal. Speech: Patient's speech is fluent and nonpressured. Monotone, and nonspontaneous. Mood/Affect: Patient reports their mood is "I'm okay", affect is flat. Suicidality/Homicidality: Patient denies having any suicidal or homicidal ideation intent or plan. Perceptions: Patient denies any auditory or visual hallucinations. Though content/process: There is no evidence of any delusional thought content and thought process is linear and goal-directed. Memory and concentration: AOX3, grossly intact for the purposes of this session. Can spell "WORLD" backwards correctly. Judgment and insight: Improved with guarded prognosis Vital Signs Temp 97.4 F L 11/21/20 06:40 Pulse 55 L 11/21/20 06:40 Resp 16 11/21/20 06:40 BP 129/66 11/21/20 06:40 Pulse Ox 96 11/20/20 07:15 Intake & Output 11/20/20 11/21/20 11/21/20 18:59 06:59 18:59 Weight 49.7 kg Impression: Schizophrenia Plan: -Continue with discharge today as patient has improved and stabilized psychiatrically and is not currently an imminent threat to self and/or others. Patient will remain at a chronically elevated risk due to the severity of her mental illness and history of nonadherence to treatment. -Continue medications: Haldol 12.5 mg by mouth at bedtime for psychosis. -Patient was counseled on the need for medication compliance and appropriate follow-up at mental health and also primary care for medical issues. Patient verbalized understanding and agreed. -Social work to arrange for and conduct family meeting to ensure safety upon discharge and answer any questions/concerns. Social work also to arrange for patients follow up appointments with [facility] for psychiatric care along with follow up with primary care provider. -Patient counseled on abstaining from recreational drugs and marijuana and alcohol. Was informed/educated on the adverse effects on their physical and mental health. Patient verbally agreed and understood. -Patient was instructed to return to the hospital or seek immediate medical care if their psychiatric or medical symptoms do worsen or reoccur. -Psychoeducation and supportive therapy provided to patient. Risks and benefits of pharmacological treatment versus the risks and benefits of nontreatment weight and discussed. Informed consent discussion held. Common side effects of psychotropics discussed such as, but not limited to headache, GI disturbance, sexual dysfunction, movement disorders, sedation, and orthostatic hypotension. Life threatening and blackbox warnings of prescribed medications also discussed. Potential risks of operating a vehicle or heavy machinery discussed with patient at length. Advised on importance of compliance and a reliable and responsible manner. Patient advised to review FDA consumer labeling of all medications prior to taking. Patient verbalized understanding of potential risks, and agrees with current treatment plan. Patient advised to medically contact physician/emergency personnel if any acute changes in condition occur. Laboratory Results WBC 6.4 k/uL (3.8-10.6) 11/15/20 07:02 RBC 4.24 m/uL (3.80-5.40) 11/15/20 07:02 Hgb 13.4 gm/dL (11.4-16.0) 11/15/20 07:02 Hct 40.2 % (34.0-46.0) 11/15/20 07:02 MCV 94.7 fL (80.0-100.0) 11/15/20 07:02 MCH 31.7 pg (25.0-35.0) 11/15/20 07:02 MCHC 33.4 g/dL (31.0-37.0) 11/15/20 07:02 RDW 13.6 % (11.5-15.5) 11/15/20 07:02 Plt Count 231 k/uL (150-450) 11/15/20 07:02 MPV 7.3 11/15/20 07:02 Neutrophils % 58 % 11/15/20 07:02 Lymphocytes % 30 % 11/15/20 07:02 Monocytes % 7 % 11/15/20 07:02 Eosinophils % 2 % 11/15/20 07:02 Basophils % 0 % 11/15/20 07:02 Neutrophils # 3.7 k/uL (1.3-7.7) 11/15/20 07:02 Lymphocytes # 2.0 k/uL (1.0-4.8) 11/15/20 07:02 Monocytes # 0.4 k/uL (0-1.0) 11/15/20 07:02 Eosinophils # 0.1 k/uL (0-0.7) 11/15/20 07:02 Basophils # 0.0 k/uL (0-0.2) 11/15/20 07:02 Sodium 138 mmol/L (137-145) 11/15/20 07:02 Potassium 4.4 mmol/L (3.5-5.1) 11/15/20 07:02 Chloride 106 mmol/L (98-107) 11/15/20 07:02 Carbon Dioxide 29 mmol/L (22-30) 11/15/20 07:02 Anion Gap 3 mmol/L 11/15/20 07:02 BUN 16 mg/dL (7-17) 11/15/20 07:02 Creatinine 0.57 mg/dL (0.52-1.04) 11/15/20 07:02 Est GFR (CKD-EPI)AfAm >90 (>60 ml/min/1.73 sqM) 11/15/20 07:02 Est GFR (CKD-EPI)NonAf >90 (>60 ml/min/1.73 sqM) 11/15/20 07:02 Glucose 84 mg/dL (74-99) 11/15/20 07:[address] Glu mg/dL 111 11/15/20 07:02 Hemoglobin A1c 5.5 % (4.0-6.0) 11/15/20 07:02 Calcium 8.6 mg/dL (8.4-10.2) 11/15/20 07:02 Total Bilirubin 0.3 mg/dL (0.2-1.3) 11/15/20 07:02 AST 23 U/L (14-36) 11/15/20 07:02 ALT 14 U/L (4-34) 11/15/20 07:02 Alkaline Phosphatase 63 U/L (38-126) 11/15/20 07:02 Total Protein 6.0 g/dL (6.3-8.2) L 11/15/20 07:02 Albumin 3.4 g/dL (3.5-5.0) L 11/15/20 07:02 Triglycerides 76.0 mg/dL (0.0-149.0) 11/15/20 07:02 Cholesterol 159 mg/dL (0-200) 11/15/20 07:02 LDL Cholesterol, Calc 99.8 mg/dL (0.0-131.0) 11/15/20 07:02 VLDL Cholesterol, Calc 15.20 mg/dL (5.00-40.00) 11/15/20 07:02 HDL Cholesterol 44.0 mg/dL (40.0-60.0) 11/15/20 07:02 Cholesterol/HDL Ratio 3.61 11/15/20 07:02 TSH 1.900 mIU/L (0.465-4.680) 11/15/20 07:02 Urine Color Yellow 11/13/20 22:08 Urine Appearance Cloudy (Clear) H 11/13/20 22:08 Urine pH 5.5 (5.0-8.0) 11/13/20 22:08 Ur Specific [place] 1.023 (1.001-1.035) 11/13/20 22:08 Urine Protein Negative (Negative) 11/13/20 22:08 Urine Glucose (UA) Negative (Negative) 11/13/20 22:08 Urine Ketones Negative (Negative) 11/13/20 22:08 Urine Blood Trace (Negative) H 11/13/20 22:08 Urine Nitrite Negative (Negative) 11/13/20 22:08 Urine Bilirubin Negative (Negative) 11/13/20 22:08 Urine Urobilinogen 2.0 mg/dL (<2.0) 11/13/20 22:08 Ur Leukocyte Esterase Moderate (Negative) H 11/13/20 22:08 Urine RBC 1 /hpf (0-5) 11/13/20 22:08 Urine WBC 25 /hpf (0-5) H 11/13/20 22:08 Urine WBC Clumps Rare /hpf (None) H 11/13/20 22:08 Ur Squamous Epith Cells <1 /hpf (0-4) 11/13/20 22:08 Urine Bacteria Few /hpf (None) H 11/13/20 22:08 Urine Mucus Rare /hpf (None) H 11/13/20 22:08 Urine Opiates Screen Not Detected (NotDetected) 11/13/20 22:08 Ur Oxycodone Screen Not Detected (NotDetected) 11/13/20 22:08 Urine Methadone Screen Not Detected (NotDetected) 11/13/20 22:08 Ur Propoxyphene Screen Not Detected (NotDetected) 11/13/20 22:08 Ur Barbiturates Screen Not Detected (NotDetected) 11/13/20 22:08 U Tricyclic Antidepress Not Detected (NotDetected) 11/13/20 22:08 Ur Phencyclidine Scrn Not Detected (NotDetected) 11/13/20 22:08 Ur Amphetamines Screen Not Detected (NotDetected) 11/13/20 22:08 U Methamphetamines Scrn Not Detected (NotDetected) 11/13/20 22:08 U Benzodiazepines Scrn Not Detected (NotDetected) 11/13/20 22:08 Urine Cocaine Screen Not Detected (NotDetected) 11/13/20 22:08 U Marijuana (THC) Screen Detected (NotDetected) H 11/13/20 22:08 Allergies Allergy/AdvReac Type Severity Reaction Status Date / Time No Known Allergies Allergy Verified 11/14/20 16:33 Patient Condition at Discharge: Stable Plan - Discharge Summary Discharge Rx Participant: No New Discharge Prescriptions: New haloperidoL [Haldol] 12.5 mg PO HS 30 Days tab Cephalexin [Keflex] 500 mg PO TID 2 Days cap Discharge Medication List Cephalexin [Keflex] 500 mg PO TID 2 Days cap 11/20/20 [Rx] haloperidoL [Haldol] 12.5 mg PO HS 30 Days tab 11/20/20 [Rx] Follow up Appointment(s)/Referral(s): [facility] [Outside] - 11/21/20 9:30 am (w/Basim) [facility] - [facility] Week Activity/Diet/Wound Care/Special Instructions: Activity and diet as tolerated. Avoid the use of street drugs and alcohol. Take all medications as prescribed. When you are in need of refills on your medicat ions please contact your medical provider and/or outpatient psychiatrist to have this done. Please go to scheduled outpatient appointment for aftercare treatment. If symptoms return or become worse, call the crisis line at and/or go to the nearest emergency room for evaluation. Discharge Disposition: HOME SELF-CARE
== END 2020-11-21 14:10 | disposition home or self-care (01) | DRG 885 ==
LOC: EC 19:13 → 3MHU 22:00
PROVIDERS: ADMIT Psychiatry & Neurology Psychiatry; ATTEND Psychiatry & Neurology Psychiatry
DX: F20.9 Schizophrenia, unspecified (principal); G25.9 Extrapyramidal and movement disorder, unspecified; F14.90 Cocaine use, unspecified, uncomplicated; F17.200 Nicotine dependence, unspecified, uncomplicated; Z79.899 Other long term (current) drug therapy; Z20.822 Contact with and (suspected) exposure to COVID-19
CPT/HCPCS: 80053; 80061; 80306; 81001; 82075; 83036; 84443; 85025; 87077; 87086; 87186; 99285

== ENCOUNTER 2020-12-19 13:55 | Emergency (ER) | payer OTHER ==
[2020-12-19 14:25] VITALS: BP 127/68; PULSE 104; RESP 16; TEMP 97.9
--- NOTE | 2020-12-19 14:45 | ED ---
General Adult HPI - General Chief complaint: Recheck/Abnormal Lab/Rx Stated complaint: Elevated BP & Pulse Time Seen by Provider: 12/19/20 14:29 Source: patient, RN notes reviewed Mode of arrival: ambulatory Limitations: no limitations - History of Present Illness Initial comments: 50-year-old female presents emergency Department chief complaint of high blood pressure. Patient was at her [facility] appointment and states that he checked her blood pressure was elevated. Patient states that they had a large cuff on her. Patient states that she does not have a history is no complaints. Patient denies any chest pain shortness breath headache dizziness blurred vision. - Related Data Previous Rx's Medication Instructions Recorded haloperidoL [Haldol] 12.5 mg PO HS 30 Days tab 11/20/20 Cephalexin [Keflex] 500 mg PO TID 1 Days #3 cap 11/21/20 Allergies Allergy/AdvReac Type Severity Reaction Status Date / Time No Known Allergies Allergy Verified 11/14/20 16:33 Review of Systems ROS Statement: Those systems with pertinent positive or pertinent negative responses have been documented in the HPI. ROS Other: All systems not noted in ROS Statement are negative. Past Medical History Past Medical History: No Reported History Additional Past Medical History / Comment(s): polysubstance abuse. History of Any Multi-Drug Resistant Organisms: None Reported Past Surgical History: No Surgical Hx Reported Additional Past Surgical History / Comment(s): None stated Past Anesthesia/Blood Transfusion Reactions: No Reported Reaction Past Psychological History: Schizophrenia Smoking Status: Unknown if ever smoked Past Alcohol Use History: None Reported Past Drug Use History: Cocaine, Marijuana General Exam Limitations: no limitations General appearance: alert, in no apparent distress Head exam: Present: atraumatic, normocephalic, normal inspection Respiratory exam: Present: normal lung sounds bilaterally. Absent: respiratory distress, wheezes, rales, rhonchi, stridor Cardiovascular Exam: Present: regular rate, normal rhythm, normal heart sounds. Absent: systolic murmur, diastolic murmur, rubs, gallop, clicks GI/Abdominal exam: Present: soft, normal bowel sounds. Absent: distended, tenderness, guarding, rebound, rigid Neurological exam: Present: alert, oriented X3, CN II-XII intact Skin exam: Present: warm, dry, intact, normal color. Absent: rash Course Vital Signs 08/11/21 14:22 Temperature 97.9 F Pulse Rate 104 H Respiratory 16 Rate Blood Pressure 127/68 O2 Sat by Pulse 97 Oximetry Medical Decision Making - Medical Decision Making Blood pressures is within normal limits she has no complaints we discharged stable condition. Disposition Clinical Impression: Blood pressure check Disposition: HOME SELF-CARE Condition: Stable Additional Instructions: Please return to the Emergency Department if symptoms worsen or any other concerns. Is patient prescribed a controlled substance at d/c from ED?: No Referrals: None,Stated [Primary Care Provider] - 1-2 days Time of Disposition: 14:44
== END 2020-12-19 14:47 | disposition home or self-care (01) ==
LOC: EC 13:55
DX: R73.9 Hyperglycemia, unspecified (principal)
CPT/HCPCS: 99282

== ENCOUNTER 2020-12-25 09:20 | Emergency (ER) | payer OTHER ==
[2020-12-25 09:24] VITALS: BP 116/64; PULSE 81; RESP 18; TEMP 97.6
--- NOTE | 2020-12-25 09:34 | ED ---
URI HPI - General Chief Complaint: Upper Respiratory Infection Stated Complaint: Cough Time Seen by Provider: 12/25/20 09:25 Source: patient, RN notes reviewed, Caregiver Mode of arrival: ambulatory Limitations: no limitations - History of Present Illness Initial Comments: This is a 50-year-old female presents emergency Department with chief complaint of cough congestion. She states she's been coughing for few weeks. Patient states she is a daily smoker and states that she has a slightly productive cough no significant shortness breath is her normal shortness of breath no chest pain no headache or dizziness. Patient denies any nausea vomiting diarrhea constipation she states she has people she lives with acute bronchitis. Patient has NO KNOWN DRUG ALLERGIES. - Related Data Previous Rx's Medication Instructions Recorded haloperidoL [Haldol] 12.5 mg PO HS 30 Days tab 11/20/20 Cephalexin [Keflex] 500 mg PO TID 1 Days #3 cap 11/21/20 Albuterol Sulfate [Proair Hfa] 1 - 2 puff INHALATION Q4HR PRN #1 12/25/20 inhaler Azithromycin [Zithromax Z-pack (6 0 mg PO DIRECTED #1 pack 12/25/20 tabs)] predniSONE 50 mg PO DAILY #5 tab 12/25/20 Allergies Allergy/AdvReac Type Severity Reaction Status Date / Time No Known Allergies Allergy Verified 12/25/20 09:24 Review of Systems ROS Statement: Those systems with pertinent positive or pertinent negative responses have been documented in the HPI. ROS Other: All systems not noted in ROS Statement are negative. Past Medical History Past Medical History: No Reported History Additional Past Medical History / Comment(s): polysubstance abuse. History of Any Multi-Drug Resistant Organisms: None Reported Past Surgical History: No Surgical Hx Reported Additional Past Surgical History / Comment(s): None stated Past Anesthesia/Blood Transfusion Reactions: No Reported Reaction Past Psychological History: Schizophrenia Smoking Status: Current every day smoker Past Alcohol Use History: None Reported Past Drug Use History: Cocaine, Marijuana General Exam Limitations: no limitations General appearance: alert, in no apparent distress Head exam: Present: atraumatic, normocephalic, normal inspection Eye exam: Present: normal appearance, PERRL, EOMI. Absent: scleral icterus, conjunctival injection, periorbital swelling ENT exam: Present: normal exam, normal oropharynx, mucous membranes moist Neck exam: Present: normal inspection, full ROM. Absent: tenderness, meningismus, lymphadenopathy Respiratory exam: Present: normal lung sounds bilaterally. Absent: respiratory distress, wheezes, rales, rhonchi, stridor Cardiovascular Exam: Present: regular rate, normal rhythm, normal heart sounds. Absent: systolic murmur, diastolic murmur, rubs, gallop, clicks GI/Abdominal exam: Present: soft, normal bowel sounds. Absent: distended, tenderness, guarding, rebound, rigid Course Vital Signs 12/25/20 09:21 Temperature 97.6 F Pulse Rate 81 Respiratory 18 Rate Blood Pressure 116/64 O2 Sat by Pulse 94 L Oximetry Medical Decision Making - Medical Decision Making X-ray shows chronic changes no acute infiltrate. Patient COVID-19 test is negative be discharged in stable conditionI counseled the patient for smoking cessation for greater than 3 minutes - Lab Data Lab Results 12/25/20 Range/Units 09:44 Coronavirus (PCR) Not Detected (Not Detectd) Disposition Clinical Impression: COPD (chronic obstructive pulmonary disease) Disposition: HOME SELF-CARE Condition: Stable Instructions (If sedation given, give patient instructions): Upper Respiratory Infection (ED), COPD (Chronic Obstructive Pulmonary Disease) (ED) Additional Instructions: Please return to the Emergency Department if symptoms worsen or any other concerns. Prescriptions: predniSONE 50 mg PO DAILY #5 tab Albuterol Sulfate [Proair Hfa] 1 - 2 puff INHALATION Q4HR PRN #1 inhaler PRN Reason: difficulty in breathing Azithromycin [Zithromax Z-pack (6 tabs)] 0 mg PO DIRECTED #1 pack Is patient prescribed a controlled substance at d/c from ED?: No Referrals: [facility] [Primary Care Provider] - 1-2 days Time of Disposition: 10:31
--- NOTE | 2020-12-25 10:08 | XR ---
EXAMINATION TYPE: XR chest 2V DATE OF EXAM: 12/25/2020 COMPARISON: Chest x-ray February 02, 2018 HISTORY: Cough for 3 weeks. TECHNIQUE: Frontal and lateral views of the chest are obtained. FINDINGS: There is chronic parenchymal change without suspicious focal air space opacity, pleural ef fusion, or pneumothorax seen. The cardiac silhouette size is stable and within normal limits. Retroc ardiac opacity consistent with moderate size hiatal hernia is redemonstrated. Degenerative change rig ht glenohumeral joint. IMPRESSION: Chronic changes without acute pulmonary process.
== END 2020-12-25 11:41 | disposition home or self-care (01) ==
LOC: EC 09:20
DX: J44.9 Chronic obstructive pulmonary disease, unspecified (principal); F17.200 Nicotine dependence, unspecified, uncomplicated; Z20.822 Contact with and (suspected) exposure to COVID-19
CPT/HCPCS: 71046; 87635; 99283

== ENCOUNTER 2021-02-12 19:00 | Emergency (ER) | payer OTHER ==
[2021-02-12 19:52] VITALS: BP 137/78; PULSE 98; RESP 18; TEMP 97.7
[2021-02-12] MEDS ORDERED: LORazepam 1 MG TAB PO STA (20:29)
--- NOTE | 2021-02-12 20:32 | ED ---
Anxiety HPI - General Chief Complaint: Anxiety Stated Complaint: anxiety Time Seen by Provider: 02/12/21 20:16 Source: patient, RN notes reviewed Mode of arrival: ambulatory Limitations: no limitations - History of Present Illness Initial Comments: This a 50-year-old female presents emergency Department chief anxiety. Patient states that her anxiety has been increasing recently. Denies being suicidal homicidal states that she is on Haldol currently. She has not missed any appointments or any medication. Denies any physical complaints offers no other associated symptoms - Related Data Home Medications: Previous Rx's Medication Instructions Recorded haloperidoL [Haldol] 12.5 mg PO HS 30 Days tab 11/20/20 Cephalexin [Keflex] 500 mg PO TID 1 Days #3 cap 11/21/20 Albuterol Sulfate [Proair Hfa] 1 - 2 puff INHALATION Q4HR PRN #1 12/25/20 inhaler Azithromycin [Zithromax Z-pack (6 0 mg PO DIRECTED #1 pack 12/25/20 tabs)] predniSONE 50 mg PO DAILY #5 tab 12/25/20 Allergies/Adverse Reactions: Allergies Allergy/AdvReac Type Severity Reaction Status Date / Time No Known Allergies Allergy Verified 02/12/21 19:52 Review of Systems ROS Statement: Those systems with pertinent positive or pertinent negative responses have been documented in the HPI. ROS Other: All systems not noted in ROS Statement are negative. Past Medical History Past Medical History: No Reported History Additional Past Medical History / Comment(s): polysubstance abuse. History of Any Multi-Drug Resistant Organisms: None Reported Past Surgical History: No Surgical Hx Reported Additional Past Surgical History / Comment(s): None stated Past Anesthesia/Blood Transfusion Reactions: No Reported Reaction Past Psychological History: No Psychological Hx Reported, Schizophrenia Smoking Status: Current every day smoker Past Alcohol Use History: None Reported Past Drug Use History: Cocaine, Marijuana General Exam Limitations: no limitations General appearance: alert, in no apparent distress Head exam: Present: atraumatic, normocephalic, normal inspection Eye exam: Present: normal appearance, PERRL, EOMI. Absent: scleral icterus, conjunctival injection, periorbital swelling Respiratory exam: Present: normal lung sounds bilaterally. Absent: respiratory distress, wheezes, rales, rhonchi, stridor Cardiovascular Exam: Present: regular rate, normal rhythm, normal heart sounds. Absent: systolic murmur, diastolic murmur, rubs, gallop, clicks Neurological exam: Present: alert, oriented X3 Psychiatric exam: Present: anxious Course Vital Signs 02/12/21 19:47 Temperature 97.7 F Pulse Rate 98 Respiratory 18 Rate Blood Pressure 137/78 O2 Sat by Pulse 98 Oximetry Medical Decision Making - Medical Decision Making Patient was provided relief for anxiety was discharged stable condition and advised to follow up with [facility] Disposition Clinical Impression: Acute anxiety Disposition: HOME SELF-CARE Condition: Stable Instructions (If sedation given, give patient instructions): Generalized Anxiety Disorder (ED) Additional Instructions: Please return to the Emergency Department if symptoms worsen or any other concerns. Is patient prescribed a controlled substance at d/c from ED?: No Referrals: [facility] [Primary Care Provider] - 1-2 days Time of Disposition: 20:32
== END 2021-02-12 20:45 | disposition home or self-care (01) ==
LOC: EC 19:00
DX: F41.9 Anxiety disorder, unspecified (principal); F17.200 Nicotine dependence, unspecified, uncomplicated
CPT/HCPCS: 99283

== ENCOUNTER 2021-03-01 10:34 | Emergency (ER) | payer OTHER ==
[2021-03-01 10:53] VITALS: BP 128/73; PULSE 103; RESP 18; TEMP 96.9
--- NOTE | 2021-03-01 11:21 | ED ---
General Adult HPI - General Chief complaint: ENT Stated complaint: ear pain Time Seen by Provider: 03/01/21 10:57 Source: patient, RN notes reviewed Mode of arrival: ambulatory Limitations: no limitations - History of Present Illness Initial comments: Patient is a pleasant 50-year-old female presenting to the emergency Department with complaints of right ear discomfort. Onset was yesterday. Patient has had some drainage. Patient admits to using Q-tip. Patient does have some discomfort. No fever. Patient has minimal cough. No dyspnea. Patient denies any history of previous IVDA. Patient previously used cocaine however never injected. Last use was over a year ago. - Related Data Previous Rx's Medication Instructions Recorded haloperidoL [Haldol] 12.5 mg PO HS 30 Days tab 11/20/20 Cephalexin [Keflex] 500 mg PO TID 1 Days #3 cap 11/21/20 Albuterol Sulfate [Proair Hfa] 1 - 2 puff INHALATION Q4HR PRN #1 12/25/20 inhaler Azithromycin [Zithromax Z-pack (6 0 mg PO DIRECTED #1 pack 12/25/20 tabs)] predniSONE 50 mg PO DAILY #5 tab 12/25/20 Ofloxacin 0.3% Otic Soln [Floxin 5 drops BOTH EARS BID #5 ml 03/01/21 0.3% Otic Soln] Allergies Allergy/AdvReac Type Severity Reaction Status Date / Time No Known Allergies Allergy Verified 03/01/21 10:53 Review of Systems ROS Statement: Those systems with pertinent positive or pertinent negative responses have been documented in the HPI. ROS Other: All systems not noted in ROS Statement are negative. Constitutional: Denies: fever Eyes: Denies: eye pain ENT: Reports: as per HPI, ear pain Respiratory: Denies: dyspnea Cardiovascular: Denies: chest pain Endocrine: Denies: fatigue Gastrointestinal: Denies: abdominal pain Genitourinary: Denies: dysuria Musculoskeletal: Denies: back pain Skin: Denies: rash Neurological: Denies: weakness Past Medical History Past Medical History: No Reported History Additional Past Medical History / Comment(s): polysubstance abuse. History of Any Multi-Drug Resistant Organisms: None Reported Past Surgical History: No Surgical Hx Reported Additional Past Surgical History / Comment(s): None stated Past Anesthesia/Blood Transfusion Reactions: No Reported Reaction Past Psychological History: No Psychological Hx Reported, Schizophrenia Smoking Status: Current every day smoker Past Alcohol Use History: None Reported Past Drug Use History: Cocaine, Marijuana General Exam Limitations: no limitations General appearance: alert, in no apparent distress Head exam: Present: normocephalic Eye exam: Present: normal appearance ENT exam: Present: other (Right external canal with swelling and mild drainage) Neck exam: Present: normal inspection Respiratory exam: Present: normal lung sounds bilaterally Cardiovascular Exam: Present: regular rate, normal rhythm Neurological exam: Present: alert Psychiatric exam: Present: normal affect, normal mood Skin exam: Present: normal color Course Vital Signs 03/01/21 10:47 Temperature 96.9 F L Pulse Rate 103 H Respiratory 18 Rate Blood Pressure 128/73 O2 Sat by Pulse 96 Oximetry Disposition Clinical Impression: Otitis externa Disposition: HOME SELF-CARE Condition: Stable Instructions (If sedation given, give patient instructions): Otitis Externa (ED) Additional Instructions: Prescription has been sent to pharmacy. Please follow-up with primary care physician in the next day or 2 for recheck. Return for increased pain, fevers, redness, worsening symptoms or other concerns. Prescriptions: Ofloxacin 0.3% Otic Soln [Floxin 0.3% Otic Soln] 5 drops BOTH EARS BID #5 ml Is patient prescribed a controlled substance at d/c from ED?: No Referrals: [facility] [Primary Care Provider] - 1-2 days Time of Disposition: 11:18
== END 2021-03-01 11:27 | disposition home or self-care (01) ==
LOC: EC 10:34
DX: H60.91 Unspecified otitis externa, right ear (principal); F17.200 Nicotine dependence, unspecified, uncomplicated
CPT/HCPCS: 99282

== ENCOUNTER 2021-10-21 20:52 | Emergency (ER) | payer OTHER ==
[2021-10-21 21:15] VITALS: BP 100/44; PULSE 57; RESP 18; TEMP 98
--- NOTE | 2021-10-21 22:46 | ED ---
Psych HPI - General Chief Complaint: Psychiatric Symptoms Stated Complaint: Mental Health Time Seen by Provider: 10/21/21 22:38 Source: patient, RN notes reviewed, old records reviewed Mode of arrival: ambulatory Limitations: altered mental status - History of Present Illness Initial Comments: This is a 50-year-old female to the emergency department for evaluation. States needing psychiatric evaluation medications not working. Not homicidal or suicidal but is having acute psychosis hearing voices. Denies drugs, denies alcohol MD Complaint: suicidal ideation, feels depressed -: hour(s) Associated Psychiatric Symptoms: depression, suicidal ideation History of same: Yes Improves With: none Worsens With: none Context: not taking psychiatric medications (States medications not working) Associated Symptoms: confusion, insomnia Treatments Prior to Arrival: placed on mental health hold - Related Data Previous Rx's Medication Instructions Recorded haloperidoL [Haldol] 12.5 mg PO HS 30 Days tab 11/20/20 Cephalexin [Keflex] 500 mg PO TID 1 Days #3 cap 11/21/20 Albuterol Sulfate [Proair Hfa] 1 - 2 puff INHALATION Q4HR PRN #1 12/25/20 inhaler Azithromycin [Zithromax Z-pack (6 0 mg PO DIRECTED #1 pack 12/25/20 tabs)] predniSONE 50 mg PO DAILY #5 tab 12/25/20 Ofloxacin 0.3% Otic Soln [Floxin 5 drops BOTH EARS BID #5 ml 03/01/21 0.3% Otic Soln] Allergies Allergy/AdvReac Type Severity Reaction Status Date / Time No Known Allergies Allergy Verified 10/21/21 21:15 Review of Systems ROS Statement: Those systems with pertinent positive or pertinent negative responses have been documented in the HPI. ROS Other: All systems not noted in ROS Statement are negative. Past Medical History Past Medical History: No Reported History Additional Past Medical History / Comment(s): polysubstance abuse. History of Any Multi-Drug Resistant Organisms: None Reported Past Surgical History: No Surgical Hx Reported Additional Past Surgical History / Comment(s): None stated Past Anesthesia/Blood Transfusion Reactions: No Reported Reaction Past Psychological History: No Psychological Hx Reported, Schizophrenia Smoking Status: Current every day smoker Past Alcohol Use History: None Reported Past Drug Use History: Cocaine, Marijuana General Exam Limitations: no limitations, altered mental status General appearance: alert, in no apparent distress Head exam: Present: atraumatic, normocephalic, normal inspection Eye exam: Present: normal appearance, PERRL, EOMI. Absent: scleral icterus, conjunctival injection, periorbital swelling ENT exam: Present: normal exam, mucous membranes moist Neck exam: Present: normal inspection. Absent: tenderness, meningismus, lymphadenopathy Respiratory exam: Present: normal lung sounds bilaterally. Absent: respiratory distress, wheezes, rales, rhonchi, stridor Cardiovascular Exam: Present: regular rate, normal rhythm, normal heart sounds. Absent: systolic murmur, diastolic murmur, rubs, gallop, clicks GI/Abdominal exam: Present: soft, normal bowel sounds. Absent: distended, tenderness, guarding, rebound, rigid Extremities exam: Present: normal inspection, full ROM, normal capillary refill. Absent: tenderness, pedal edema, joint swelling, calf tenderness Back exam: Present: normal inspection Neurological exam: Present: alert, oriented X3, CN II-XII intact Psychiatric exam: Present: normal affect, normal mood Skin exam: Present: warm, dry, intact, normal color. Absent: rash Course Vital Signs 10/21/21 21:12 Temperature 98.0 F Pulse Rate 57 L Respiratory 18 Rate Blood Pressure 100/44 O2 Sat by Pulse 96 Oximetry - Reevaluation(s) Reevaluation #1: 10/22/21 01:00 Medical record is reviewed Reevaluation #2: 10/22/21 01:00 Medical clear for psychiatric evaluation Medical Decision Making - Medical Decision Making 50 female to the emergency department for evaluation of psychiatric illness. Patient is hearing voices, history of hallucinations. Patient is stable for discharge home - Lab Data Lab Results 10/21/21 Range/Units 23:32 Urine Opiates Screen Not Detected (NotDetected) Ur Oxycodone Screen Not Detected (NotDetected) Urine Methadone Screen Not Detected (NotDetected) Ur Propoxyphene Screen Not Detected (NotDetected) Ur Barbiturates Screen Not Detected (NotDetected) U Tricyclic Antidepress Not Detected (NotDetected) Ur Phencyclidine Scrn Not Detected (NotDetected) Ur Amphetamines Screen Not Detected (NotDetected) U Methamphetamines Scrn Not Detected (NotDetected) U Benzodiazepines Scrn Not Detected (NotDetected) Urine Cocaine Screen Not Detected (NotDetected) U Marijuana (THC) Screen Not Detected (NotDetected) Disposition Clinical Impression: Psychosis, Schizophrenia Disposition: HOME SELF-CARE Condition: Fair Instructions (If sedation given, give patient instructions): Psychotic Disorder (ED) Is patient prescribed a controlled substance at d/c from ED?: No Referrals: Silvia Sing[facility] [Primary Care Provider] - 1-2 days Time of Disposition: 01:20
[2021-10-22 00:23] LABS: Amphetamine Screen,Urine Not Detected (NotDetected); Benzodiazepines Screen,Urine Not Detected (NotDetected); Cocaine Screen,Urine Not Detected (NotDetected); Methadone Screen, Urine Not Detected (NotDetected); Opiate Screen,Urine Not Detected (NotDetected); Phencyclidine Screen,Urine Not Detected (NotDetected); Tricyclic Antidepressant,Urine Not Detected (NotDetected); Urn Cannabinoid Scrn Not Detected (NotDetected)
[2021-10-22 00:24] LABS: Barbiturate Screen,Urine Not Detected (NotDetected); Oxycodone Screen, Urine Not Detected (NotDetected)
== END 2021-10-22 02:48 | disposition home or self-care (01) ==
LOC: EC 20:52
DX: F20.9 Schizophrenia, unspecified (principal); R41.82 Altered mental status, unspecified; F17.200 Nicotine dependence, unspecified, uncomplicated
CPT/HCPCS: 80306; 82075; 99284

== ENCOUNTER 2021-12-01 02:25 | Emergency (ER) | payer OTHER ==
[2021-12-01 02:57] VITALS: TEMP 97.8
--- NOTE | 2021-12-01 04:26 | ED ---
ENT HPI - General Chief complaint: ENT Stated complaint: poss q-tip in ear Time Seen by Provider: 12/01/21 03:57 Source: patient, EMS Mode of arrival: EMS Limitations: no limitations - History of Present Illness Initial comments: This patient is a 51-year-old woman who presents with complaint that her ear feels plugged. She states she had been using a cotton applicator to clean her ear 2 days ago and was concerned that May have lodged in her ear canal. The patient has not had fever, ear pain, cough or congestion. She does state that they hearing sounds a little muffled. MD complaint: ear pain Onset/Timin -: days(s) Location: R ear Severity: mild Quality: other Consistency: constant Improves with: none Worsens with: none - Related Data Previous Rx's Medication Instructions Recorded haloperidoL [Haldol] 12.5 mg PO HS 30 Days tab 11/20/20 Cephalexin [Keflex] 500 mg PO TID 1 Days #3 cap 11/21/20 Albuterol Sulfate [Proair Hfa] 1 - 2 puff INHALATION Q4HR PRN #1 12/25/20 inhaler Azithromycin [Zithromax Z-pack (6 0 mg PO DIRECTED #1 pack 12/25/20 tabs)] predniSONE 50 mg PO DAILY #5 tab 12/25/20 Ofloxacin 0.3% Otic Soln [Floxin 5 drops BOTH EARS BID #5 ml 03/01/21 0.3% Otic Soln] Allergies Allergy/AdvReac Type Severity Reaction Status Date / Time No Known Allergies Allergy Verified 10/21/21 21:15 Review of Systems ROS Statement: Those systems with pertinent positive or pertinent negative responses have been documented in the HPI. ROS Other: All systems not noted in ROS Statement are negative. Constitutional: Denies: fever, chills ENT: Reports: as per HPI, ear pain, hearing loss. Denies: throat pain, dental pain, epistaxis, congestion Respiratory: Denies: cough Neurological: Denies: headache Past Medical History Past Medical History: No Reported History Additional Past Medical History / Comment(s): polysubstance abuse. History of Any Multi-Drug Resistant Organisms: None Reported Past Surgical History: No Surgical Hx Reported Additional Past Surgical History / Comment(s): None stated Past Anesthesia/Blood Transfusion Reactions: No Reported Reaction Past Psychological History: No Psychological Hx Reported, Schizophrenia Smoking Status: Current every day smoker Past Alcohol Use History: None Reported Past Drug Use History: Cocaine, Marijuana General Exam Limitations: no limitations General appearance: alert, in no apparent distress Head exam: Present: atraumatic, normocephalic Eye exam: Present: normal appearance. Absent: scleral icterus, conjunctival injection ENT exam: Present: normal oropharynx, other (The patient does have edema of the right external auditory canal with some erythema and tenderness at the tragus. Not able to visualize the right tympanic membrane due to edema.) Neck exam: Present: normal inspection, full ROM. Absent: tenderness, meningismus, lymphadenopathy Course Vital Signs 12/01/21 12/01/21 02:54 04:48 Temperature 97.8 F Pulse Rate 74 70 Respiratory 18 16 Rate Blood Pressure 131/72 124/78 O2 Sat by Pulse 97 100 Oximetry Medical Decision Making - Medical Decision Making Patient is 51-year-old who is here with concern there is, and retained in the right external auditory canal. The patient does have some otitis externa. I'm not able to visualize the tympanic membrane but I do not see any cotton. Will put patient on Cortisporin otic to treat the otitis externa and relieve the edema she will then follow with your nose and throat to ensure there is no foreign body in the canal. Disposition Clinical Impression: Otitis externa Disposition: HOME SELF-CARE Condition: Good Instructions (If sedation given, give patient instructions): Swimmer's Ear (ED) Is patient prescribed a controlled substance at d/c from ED?: No [facility] [[facility] - 1-2 days Amos Alexander MD [STAFF PHYSICIAN] - 1-2 days
[2021-12-01] MEDS ORDERED: NEOMYCIN-POLYMYXIN-HC (3.5-10,000-10 MG) OTIC DROPS 10 ML BTL RIGHT EAR ONE (04:45)
[2021-12-01 04:49] VITALS: BP 124/78; PULSE 70; RESP 16
== END 2021-12-01 04:55 | disposition home or self-care (01) ==
LOC: EC 02:25
DX: H60.91 Unspecified otitis externa, right ear (principal); F17.200 Nicotine dependence, unspecified, uncomplicated
CPT/HCPCS: 99283

== ENCOUNTER 2023-02-11 16:09 | Observation (INO) | payer OTHER ==
[2023-02-11] MEDS ORDERED: HYDROmorphone 0.5 MG/0.5 ML SYRINGE IM STA (16:38)
[2023-02-11] MEDS ORDERED: DIPH,PERTUS(ACELL)TETVAC-LF 0.5 ML VIAL IM ONE (16:41)
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
[2023-02-11] MEDS ORDERED: ONDANSETRON ODT 4 MG TAB PO STA (17:26)
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
[2023-02-11] MEDS ORDERED: ONDANSETRON 4 MG TAB PO STA (17:28)
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
[2023-02-11] MEDS ORDERED: AMOXIC-POT CLAV 875-125MG 1 EACH TAB PO STA (18:24)
[2023-02-11] MEDS ORDERED: ACET/COD 300 MG/30 MG STARTER PACK 6 TAB BTL PO STA (18:24)
[2023-02-11 19:18] LABS: Basophils % (A) 0 %; Eosinophils # (A) 0.2 k/uL (0-0.7); Eosinophils % (A) 1 %; HCT 42.6 % (34.0-46.0); Lymphocytes # (A) 1.6 k/uL (1.0-4.8); Lymphocytes % (A) 13 %; MCH 32.3 pg (25.0-35.0); MCHC 32.9 g/dL (31.0-37.0); MCV 98.1 fL (80.0-100.0); Mean Platelet Volume 7.9; Monocytes # (A) 0.7 k/uL (0-1.0); Monocytes % (A) 5 %; Neutrophils # (A) 9.7 k/uL (1.3-7.7); Neutrophils % (A) 79 %; Platelet Count 228 k/uL (150-450); RBC 4.34 m/uL (3.80-5.40); WBC 12.3 k/uL (3.8-10.6)
[2023-02-11 19:20] LABS: Partial Thromboplastin Time 25.3 sec (22.0-30.0); Prothrombin Time 10.3 sec (9.0-12.0)
[2023-02-11 19:24] LABS: ALT 25 U/L (4-34); AST 38 U/L (14-36); African American GFR (CKD) >90 (>60 ml/min/1.73 sqM); Alkaline Phosphatase 87 U/L (38-126); Anion Gap 10 mmol/L; Blood Urea Nitrogen 15 mg/dL (7-17); Carbon Dioxide 24 mmol/L (22-30); Chloride 103 mmol/L (98-107); Glucose 115 mg/dL (74-99); Magnesium 1.9 mg/dL (1.6-2.3); Non-African American GFR(CKD) >90 (>60 ml/min/1.73 sqM); Sodium 137 mmol/L (137-145); Total Bilirubin 0.4 mg/dL (0.2-1.3); Total Protein 6.5 g/dL (6.3-8.2)
[2023-02-11] MEDS ORDERED: METOCLOPRAMIDE 5 MG/ML 2 ML VIAL IVP STA (19:46)
[2023-02-11] MEDS ORDERED: NALOXONE 0.4 MG/ML 1 ML VIAL IV PRN (21:32)
[2023-02-11] MEDS ORDERED: HYDROmorphone 0.5 MG/0.5 ML SYRINGE IVP PRN ×2 (21:32)
[2023-02-11 23:10] VITALS: RESP 16
[2023-02-12] MEDS: SODIUM CHLORIDE 0.9% 1,000 ML IV SCH ×2 (00:55→11:55)
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
[2023-02-12] MEDS: ACETAMINOPHEN TAB 325 MG TAB PO PRN (14:19)
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
--- NOTE | 2023-02-12 18:41 | MR ---
Examination Type: MR CERVICAL SPINE WO/W CON Date Of Exam: 02/12/2023 Comparison: CT 02/11/2023 History: Ligamentous injury Technique: Departmental protocol. Multiplanar, multisequence images of the cervical spine were acquir ed without contrast and with 6 mL intravenous Gadavist gadolinium contrast. Findings: INTRAMEDULLARY EXAMINATION: Cervical spinal cord is of normal morphology and signal characteristics. EXTRAMEDULLARY/INTRADURAL EXAMINATION: Negative. EXTRADURAL EXAMINATION: There is no malalignment at the posterior longitudinal ligament line. Mild kyphosis from the C2-3 to the C4-5 levels noted. There is no focal disc extrusion/protrusion. At C4-5 there is uncinate process hypertrophy and posterior ridging off the endplates producing a bro ad-based anterior mild epidural defect and moderate-marked left neural foraminal and moderate right n eural foraminal narrowing. At C5-6 these findings are seen, but they result in only minimal broad-based anterior epidural defect and minimal bilateral neural foraminal narrowing. At C6-7, however, these changes produce marked right neuroforaminal narrowing and moderate left neura l foraminal narrowing. At C7-T1 these findings are seen but they appear insignificant. The gadolinium contrast-enhancement pattern is normal. No other findings. IMPRESSION: Cervical spondylosis.
[2023-02-13] MEDS: ACETAMINOPHEN TAB 325 MG TAB PO PRN (08:48)
[2023-02-13 10:33] VITALS: BP 120/81; PULSE 90; TEMP 98.1
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
== END 2023-02-13 10:31 | disposition home or self-care (01) ==
LOC: EC 16:09 → 3SCARD 21:34 → INTOOBSV 21:34 → 3SCARD 22:12
PROVIDERS: ADMIT Internal Medicine; ATTEND Internal Medicine
DX: S02.40DA Maxillary fracture, left side, initial encounter for closed fracture (principal); S00.81XA Abrasion of other part of head, initial encounter; S80.211A Abrasion, right knee, initial encounter; I49.3 Ventricular premature depolarization; Y93.01 Activity, walking, marching and hiking; V03.90XA Pedestrian on foot injured in collision with car, pick-up truck or van, unspecified whether traffic or nontraffic accident, initial encounter; Y92.410 Unspecified street and highway as the place of occurrence of the external cause; M25.562 Pain in left knee; F20.9 Schizophrenia, unspecified; I08.1 Rheumatic disorders of both mitral and tricuspid valves; E78.5 Hyperlipidemia, unspecified; F17.200 Nicotine dependence, unspecified, uncomplicated; Z79.899 Other long term (current) drug therapy; Z88.6 Allergy status to analgesic agent; Z87.898 Personal history of other specified conditions
CPT/HCPCS: 90471; 96372; 96374; 99285; 36415; 93005; 80053; 83735; 84484 ×2; 85025; 85610; 85730; 73564; 72125; 70486; 70450; 71260; 74177; 72156; 90715; G0378 ×2; J2765; J1170; Q9967; A9585

== ENCOUNTER 2023-02-20 11:40 | Emergency (ER) | payer OTHER ==
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
[2023-02-20 14:18] VITALS: TEMP 97.9
[2023-02-20 14:19] VITALS: RESP 18
--- NOTE | 2023-02-20 14:22 | XR ---
EXAMINATION TYPE: XR knee complete LT DATE OF EXAM: 02/20/2023 CLINICAL HISTORY: pain TECHNIQUE: Three views of the left knee are obtained. COMPARISON: None. FINDINGS: Identified only a single view is vague cortical lucency involving the patella. Nondisplaced fracture is difficult to exclude however this is not confirmed on additional views obtained. Small s uprapatellar joint effusion noted. The tri-compartment joint spaces appear within normal limits. The overlying soft tissue appears unremarkable. IMPRESSION: Identified only a single view is vague cortical lucency involving the patella. Nondisplaced fracture is difficult to exclude however this is not confirmed on additional views obtained. Small suprapatell ar joint effusion noted.
[2023-02-20] MEDS ORDERED: APIXABAN 5 MG TAB PO STA (14:44)
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
[2023-02-20 15:10] VITALS: BP 143/77; PULSE 60
== END 2023-02-20 14:56 | disposition home or self-care (01) ==
LOC: EC 11:40
DX: I82.432 Acute embolism and thrombosis of left popliteal vein (principal); M25.462 Effusion, left knee; F20.9 Schizophrenia, unspecified; F17.200 Nicotine dependence, unspecified, uncomplicated; F14.90 Cocaine use, unspecified, uncomplicated; F12.90 Cannabis use, unspecified, uncomplicated; Z79.899 Other long term (current) drug therapy; Z88.6 Allergy status to analgesic agent
CPT/HCPCS: 99284

== ENCOUNTER 2023-02-21 15:11 | Emergency (ER) | payer OTHER ==
[2023-02-21 15:58] LABS: Basophils % (A) 0 %; Eosinophils # (A) 0.2 k/uL (0-0.7); Eosinophils % (A) 2 %; HCT 38.7 % (34.0-46.0); HGB 13.2 gm/dL (11.4-16.0); Lymphocytes # (A) 1.8 k/uL (1.0-4.8); Lymphocytes % (A) 18 %; MCH 33.4 pg (25.0-35.0); MCV 98.1 fL (80.0-100.0); Mean Platelet Volume 7.6; Monocytes # (A) 0.5 k/uL (0-1.0); Monocytes % (A) 5 %; Neutrophils # (A) 7.4 k/uL (1.3-7.7); Neutrophils % (A) 74 %; Platelet Count 255 k/uL (150-450); RBC 3.95 m/uL (3.80-5.40); RDW 13.8 % (11.5-15.5); WBC 10.1 k/uL (3.8-10.6)
[2023-02-21 16:06] LABS: INR 0.9 (<1.2); Partial Thromboplastin Time 24.8 sec (22.0-30.0); Prothrombin Time 10.3 sec (10.0-12.5)
--- NOTE | 2023-02-21 16:07 | XR ---
EXAMINATION TYPE: XR chest 2V DATE OF EXAM: 02/21/2023 3:58 PM CLINICAL INDICATION:Female, 52 years old with history of Chest Pain COMPARISON: Chest radiographs from TECHNIQUE: XR chest 2V Frontal and lateral views of the chest. FINDINGS: Lungs/Pleura: Emphysematous changes of the lungs are identified. No evidence of pleural effusion or p neumothorax. Pulmonary vascularity: Unremarkable. Heart/mediastinum: Cardiomediastinal silhouette is unremarkable. Musculoskeletal: No acute osseous pathology. Other findings: Hiatal hernia is present. IMPRESSION: 1. Emphysematous changes of lungs. No acute process. 2. Hiatal hernia.
[2023-02-21 16:08] LABS: ALT 14 U/L (4-34); AST 24 U/L (14-36); African American GFR (CKD) >90 (>60 ml/min/1.73 sqM); Albumin 3.5 g/dL (3.5-5.0); Alkaline Phosphatase 77 U/L (38-126); Anion Gap 7 mmol/L; Blood Urea Nitrogen 12 mg/dL (7-17); Calcium 8.7 mg/dL (8.4-10.2); Carbon Dioxide 26 mmol/L (22-30); Chloride 103 mmol/L (98-107); Glucose 84 mg/dL (74-99); Lipase 160 U/L (23-300); Magnesium 1.9 mg/dL (1.6-2.3); Non-African American GFR(CKD) >90 (>60 ml/min/1.73 sqM); Potassium 4.5 mmol/L (3.5-5.1); Sodium 136 mmol/L (137-145); Total Bilirubin 0.4 mg/dL (0.2-1.3); Total Protein 6.1 g/dL (6.3-8.2)
[2023-02-21 16:16] LABS: NT-Pro-B-Type Natriuretic Pept 1700 pg/mL
[2023-02-21 16:56] VITALS: RESP 18
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
--- NOTE | 2023-02-21 18:14 | CT ---
EXAMINATION TYPE: CT angio chest CT DLP: 259.6 mGycm, Automated exposure control for dose reduction was used. DATE OF EXAM: 02/21/2023 6:07 PM COMPARISON: Chest radiograph from same day. CLINICAL INDICATION:Female, 52 years old with history of PE suspected, chest pain. TECHNIQUE/CONTRAST: CTA scan of the thorax is performed with IV Contrast, patient injected with 100 ml mL of Isovue 370, MIP images are created and reviewed these are created on a separate workstation.. FINDINGS: Pulmonary Artery: There is no evidence for a filling defect within the pulmonary vasculature to sugge st acute pulmonary embolism. The pulmonary artery is of normal size. Lungs/Pleura: Paraseptal and centrilobular emphysematous changes are identified Airway: Large airways are patent. Heart: Heart is within normal limits for size. Vasculature: No evidence of aortic aneurysm. Mediastinum: Large hiatal hernia. Musculoskeletal: No acute osseous abnormalities. Right shoulder effusion. Degenerative changes are no austen of the right glenohumeral joint. Soft Tissues: Unremarkable. Lower neck: No significant findings. Upper Abdomen: No significant findings. IMPRESSION: 1. No evidence of pulmonary embolism. 2. Diffuse edematous changes of the lungs. 3. Large hernia.
[2023-02-21] MEDS: ACETAMINOPHEN TAB 500 MG TAB PO STA (20:17)
[2023-02-21 20:44] VITALS: BP 134/94; PULSE 87; TEMP 98.9
== END 2023-02-21 20:20 | disposition home or self-care (01) ==
LOC: EC 15:11
DX: M94.0 Chondrocostal junction syndrome [Tietze] (principal); K44.9 Diaphragmatic hernia without obstruction or gangrene; F17.200 Nicotine dependence, unspecified, uncomplicated; F12.90 Cannabis use, unspecified, uncomplicated
CPT/HCPCS: 36415; 93005; 85379; 83880; 80053; 83690; 83735; 84484; 85025; 85610; 85730; 71046; 71275; 99285; Q9967

== ENCOUNTER 2024-03-08 18:03 | Inpatient (IN) | payer MEDICAID, OTHER ==
--- NOTE | 2024-03-08 18:51 | ED ---
Psych HPI - General Chief Complaint: Psychiatric Symptoms Stated Complaint: Hallucination Time Seen by Provider: 03/08/24 18:14 Source: EMS, RN notes reviewed, old records reviewed Mode of arrival: EMS Limitations: no limitations - History of Present Illness Initial Comments: This is a 53-year-old male to the ER for evaluation patient presents to the ER today with acute psychosis and hallucinations MD Complaint: altered mental status -: unknown Associated Psychiatric Symptoms: racing thoughts, auditory hallucinations, visual hallucinations Quality: constant Improves With: none Worsens With: none Associated Symptoms: denies other symptoms Treatments Prior to Arrival: placed on mental health hold - Related Data Previous Rx's Medication Instructions Recorded Benztropine Mesylate [Cogentin] 0.5 mg PO BID 30 Days #60 tab 03/16/24 Haloperidol Decanoate [Haldol D] 150 mg IM Q21D #1 each 03/16/24 Nicotine 14Mg/24Hr Patch [Habitrol] 1 patch TRANSDERM DAILY 14 Days 03/16/24 #14 patch Allergies Allergy/AdvReac Type Severity Reaction Status Date / Time aspirin AdvReac Nausea & Verified 03/09/24 14:28 Vomiting Review of Systems ROS Statement: Those systems with pertinent positive or pertinent negative responses have been documented in the HPI. ROS Other: All systems not noted in ROS Statement are negative. Past Medical History Past Medical History: No Reported History History of Any Multi-Drug Resistant Organisms: None Reported Past Surgical History: No Surgical Hx Reported Past Psychological History: Schizophrenia Smoking Status: Current every day smoker Past Alcohol Use History: None Reported Past Drug Use History: Marijuana - Past Family History Mother Family Medical History: Myocardial Infarction (MA) Additional Family Medical History / Comment(s): from heart attack Father Additional Family Medical History / Comment(s): from Heart attack General Exam General appearance: alert, in no apparent distress Head exam: Present: atraumatic, normocephalic, normal inspection Eye exam: Present: normal appearance, PERRL, EOMI. Absent: scleral icterus, conjunctival injection, periorbital swelling ENT exam: Present: normal exam, mucous membranes moist Neck exam: Present: normal inspection. Absent: tenderness, meningismus, lymphadenopathy Respiratory exam: Present: normal lung sounds bilaterally. Absent: respiratory distress, wheezes, rales, rhonchi, stridor Cardiovascular Exam: Present: regular rate, normal rhythm, normal heart sounds. Absent: systolic murmur, diastolic murmur, rubs, gallop, clicks GI/Abdominal exam: Present: soft, normal bowel sounds. Absent: distended, tenderness, guarding, rebound, rigid Extremities exam: Present: normal inspection, full ROM, normal capillary refill. Absent: tenderness, pedal edema, joint swelling, calf tenderness Back exam: Present: normal inspection Neurological exam: Present: alert, oriented X3, CN II-XII intact Psychiatric exam: Present: normal affect, normal mood Skin exam: Present: warm, dry, intact, normal color. Absent: rash Course Vital Signs 03/08/24 18:10 Temperature 98 F Pulse Rate 53 L Respiratory 18 Rate Blood Pressure 127/62 O2 Sat by Pulse 95 Oximetry - Reevaluation(s) Reevaluation #1: 03/08/24 18:51 Medical records reviewed Reevaluation #2: 03/08/24 18:51 Medical care for psychiatry Reevaluation #3: Differential Mental Health Depression, anxiety, bipolar, psychosis, schizophrenia, borderline personality, situational depression, adjustment disorder, behavioral disorder, brain tumor, malingering, substance abuse, encephalopathy, medication reaction, dementia, hypothyroidism, degenerative neurologic disorder, lupus.... This is not meant to be all-inclusive list Medical Decision Making - Lab Data Result diagrams: 03/10/24 06:14 03/10/24 06:43 Lab Results 03/08/24 03/08/24 Range/Units 19:40 23:00 Urine Color Colorless Urine Appearance Clear (Clear) Urine pH 6.5 (5.0-8.0) Ur Specific [place] 1.003 (1.001-1.035) Urine Protein Negative (Negative) Urine Glucose (UA) Negative (Negative) Urine Ketones Negative (Negative) Urine Blood Negative (Negative) Urine Nitrite Negative (Negative) Urine Bilirubin Negative (Negative) Urine Urobilinogen <2.0 (<2.0) mg/dL Ur Leukocyte Esterase Negative (Negative) Urine Opiates Screen Not Detected (NotDetected) Ur Oxycodone Screen Not Detected (NotDetected) Urine Methadone Screen Not Detected (NotDetected) Ur Barbiturates Screen Not Detected (NotDetected) U Tricyclic Antidepress Not Detected (NotDetected) Ur Phencyclidine Scrn Not Detected (NotDetected) Ur Amphetamines Screen Not Detected (NotDetected) U Methamphetamines Scrn Not Detected (NotDetected) U Benzodiazepines Scrn Not Detected (NotDetected) Urine Cocaine Screen Not Detected (NotDetected) U Marijuana (THC) Screen Detected H (NotDetected) SARS-CoV-2 (PCR) Not Detected (Not Detectd) Disposition Clinical Impression: Depression, Nicotine dependence, Psychosis, Cannabis abuse, Mild intellectual disability, Schizophrenia, Nicotine abuse Disposition: TRANSFER TO PSYCH HOSP/UNIT Condition: Fair Is patient prescribed a controlled substance at d/c from ED?: No
[2024-03-08 19:52] LABS: Appearance,Urine Clear (Clear); Bilirubin,Urine Negative (Negative); Blood,Urine Negative (Negative); Color,Urine Colorless; Glucose,Urine (UA) Negative (Negative); Ketones,Urine Negative (Negative); Leukocyte Esterase,Urine Negative (Negative); Nitrite,Urine Negative (Negative); PH, Urine 6.5 (5.0-8.0); Protein,Urine Negative (Negative); Specific Gravity,Urine 1.003 (1.001-1.035); Urobilinogen,Urine <2.0 mg/dL (<2.0)
[2024-03-08 20:10] LABS: Amphetamine Screen,Urine Not Detected (NotDetected); Barbiturate Screen,Urine Not Detected (NotDetected); Benzodiazepines Screen,Urine Not Detected (NotDetected); Cocaine Screen,Urine Not Detected (NotDetected); Methadone Screen, Urine Not Detected (NotDetected); Opiate Screen,Urine Not Detected (NotDetected); Oxycodone Screen, Urine Not Detected (NotDetected); Phencyclidine Screen,Urine Not Detected (NotDetected); Tricyclic Antidepressant,Urine Not Detected (NotDetected); Urn Cannabinoid Scrn Detected (NotDetected)
[2024-03-08] MEDS: ACETAMINOPHEN TAB 325 MG TAB PO STA (23:37)
[2024-03-09] MEDS ORDERED: MAG HYDROX/AL HYDROX/SIMETH 355 ML BOTTLE PO PRN
[2024-03-09] MEDS ORDERED: HALOPERIDOL LACTATE 5 MG/ML 1 ML VIAL IM PRN
[2024-03-09] MEDS ORDERED: LORazepam 2 MG/ML INJ IM PRN
[2024-03-09] MEDS: haloperidoL 5 MG TAB PO SCH ×3 (01:18→21:27)
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
[2024-03-09] MEDS: NICOTINE 14MG/24HR PATCH TRANSDERM SCH (10:07)
[2024-03-09] MEDS: ACETAMINOPHEN TAB 325 MG TAB PO PRN (14:31)
[2024-03-09] MEDS: LORazepam 1 MG TAB PO PRN (15:57)
[2024-03-09 16:18] VITALS: BMI 18.4
[2024-03-09] MEDS: IBUPROFEN 600 MG TAB PO PRN (20:15)
--- NOTE | 2024-03-09 22:09 | P.MDCNMH ---
<Al Andrade - Last Filed: 03/09/24 21:57> History of Present Illness H&P Date: 03/09/24 History of present illness; Patient Yuko Valdez 53-year-old female with schizophrenia and intellectual dysfunction presenting with auditory hallucinations. Patient states that she is feeling well and has no complaints at this time. Patient states she is in no pain. Patient reports absence of fever, chills, weight loss, chest pain, palpitations, diaphoresis, dyspnea, cough, nausea, vomiting, constipation, diarrhea, abdominal pain, weakness, myalgia, dizziness, headache, and dysuria. Internal medicine was consulted for medical management. Social history: Smokes 1 pack cigarettes a day, smokes cannabis recreationally, kratom daily, no stated alcohol use REVIEW OF SYSTEMS: All systems reviewed, pertinent positives and negatives noted in HPI. All other symptoms are negative. PHYSICAL EXAMINATION: Vitals reviewed GENERAL: No acute distress. Well developed, well nourished. HEENT: Pupils are round and equally reacting to light. EOMI. No scleral icterus. Normocephalic, atraumatic. No pharyngeal erythema. No thyromegaly. CARDIOVASCULAR: S1 and S2 present. 4/6 systolic murmur most prominent at left lower sternal border PULMONARY: Chest is clear to auscultation, no wheezing, rhonchi, or crackles. ABDOMEN: Soft, nontender, nondistended, normoactive bowel sounds. No palpable organomegaly. MUSCULOSKELETAL: No apparent joint swelling and deformities. EXTREMITIES: No apparent cyanosis, clubbing, or pedal edema. NEUROLOGICAL: The patient is alert and oriented x3, Gross neurological examination did not reveal any focal deficits. 5/5 strength bilateral UE and LE. CN II through XII with no deficits SKIN: No apparent rashes. Assessment and plan Patient Yuko Valdez 53-year-old female with schizophrenia and intellectual dysfunction presenting with auditory hallucinations. No stated chronic Medical conditions #Schizophrenia #Depression -Psychiatric conditions managed by primary psychiatry team F: P.o. E: Replete as needed N: Normal DVT ppx: None Code status: Full code Patient is stable from medical stand point Dictation was produced using Reactivity dictation software. Please excuse any grammatical, word or spelling errors. Past Medical History Past Medical History: Rheumatoid Arthritis (RA) Additional Past Medical History / Comment(s): polysubstance abuse. pt states she has not used drugs x 3 years. History of Any Multi-Drug Resistant Organisms: None Reported Past Surgical History: No Surgical Hx Reported Additional Past Surgical History / Comment(s): None stated Past Anesthesia/Blood Transfusion Reactions: No Reported Reaction Smoking Status: Current every day smoker - Past Family History Mother Family Medical History: Myocardial Infarction ([place]) Additional Family Medical History / Comment(s): from heart attack Father Additional Family Medical History / Comment(s): from Heart attack Medications and Allergies Home Medications Medication Instructions Recorded Confirmed Type Acetaminophen Tab [Tylenol] 650 mg PO Q8H PRN 02/11/23 02/21/23 History Atorvastatin [Lipitor] 10 mg PO HS 02/11/23 02/21/23 History Benztropine Mesylate [Cogentin] 1 mg PO HS 02/11/23 02/21/23 History QUEtiapine FUMARATE [SEROquel] 300 mg PO HS 02/11/23 02/21/23 History haloperidoL [Haldol] 15 mg PO HS 02/11/23 02/21/23 History Apixaban [Eliquis Starter Pack See Taper PO DIRECTED 02/21/23 02/21/23 History (for VTE)] haloperidoL [Haldol] 15 mg PO HS 03/08/24 03/08/24 History Allergies Allergy/AdvReac Type Severity Reaction Status Date / Time aspirin AdvReac Nausea & Verified 03/09/24 14:28 Vomiting Physical Exam Vitals: Vital Signs Temp Pulse Pulse Resp BP BP Pulse Ox 03/09/24 16:01 65 104/67 03/09/24 10:13 97.3 F L 104 H 110/73 98 03/09/24 01:27 98.0 F 50 16 125/70 99 03/09/24 00:37 52 16 147/84 98 Intake and Output 03/09/24 03/09/24 03/09/24 06:59 14:59 22:59 Other: Weight 51.908 kg 51.908 kg Cranial Nerve Examination - Cranial Nerves Cranial Nerve II- Optic: Intact Cranial Nerve III- Oculomotor: Intact Cranial Nerve IV- Trochlear: Intact Cranial Nerve V- Trigeminal: Intact Cranial Nerve - Abducens: Intact Cranial Nerve VII- Facial: Intact Cranial Nerve VIII- Auditory: Intact Cranial Nerve IX- Glossopharyngeal: Intact Cranial Nerve X- Vagus: Intact Cranial Nerve XI- Accessory: Intact Cranial Nerve XII- Hypoglossal: Intact <Tan Pearson - Last Filed: 03/10/24 00:58> Physical Exam Vitals: Vital Signs Temp Pulse Resp BP Pulse Ox 03/09/24 16:01 65 104/67 03/09/24 10:13 97.3 F L 104 H 110/73 98 03/09/24 01:27 98.0 F 50 16 125/70 99 Intake and Output 03/09/24 03/09/24 03/10/24 14:59 22:59 06:59 Other: Weight 51.908 kg Cranial Nerve Examination - Cranial Nerves Cranial Nerve II- Optic: Intact Cranial Nerve III- Oculomotor: Intact Cranial Nerve IV- Trochlear: Intact Cranial Nerve V- Trigeminal: Intact Cranial Nerve - Abducens: Intact Cranial Nerve VII- Facial: Intact Cranial Nerve VIII- Auditory: Intact Cranial Nerve IX- Glossopharyngeal: Intact Cranial Nerve X- Vagus: Intact Cranial Nerve XI- Accessory: Intact Cranial Nerve XII- Hypoglossal: Intact Assessment and Plan Assessment: I have seen and evaluated the patient today. I Discussed the case with the resident and agree with the resident's findings I edited the assessment and plan as necessary as documented in the resident's note.
[2024-03-10] MEDS: haloperidoL 5 MG TAB PO PRN
[2024-03-10 07:09] LABS: Basophils # (A) 0.1 k/uL (0-0.2); Basophils % (A) 2 %; Eosinophils # (A) 0.3 k/uL (0-0.7); Eosinophils % (A) 5 %; HCT 38.2 % (34.0-46.0); HGB 12.1 gm/dL (11.4-16.0); Hypochromasia Slight; Lymphocytes # (A) 1.8 k/uL (1.0-4.8); Lymphocytes % (A) 37 %; MCH 31.1 pg (25.0-35.0); MCHC 31.7 g/dL (31.0-37.0); MCV 98.2 fL (80.0-100.0); Mean Platelet Volume 7.2; Monocytes # (A) 0.6 k/uL (0-1.0); Monocytes % (A) 12 %; Neutrophils # (A) 1.9 k/uL (1.3-7.7); Neutrophils % (A) 39 %; Platelet Count 238 k/uL (150-450); RBC 3.89 m/uL (3.80-5.40); RDW 13.8 % (11.5-15.5); WBC 4.8 k/uL (3.8-10.6)
[2024-03-10 07:26] LABS: ALT 14 U/L (4-34); AST 26 U/L (14-36); African American GFR (CKD) >90 (>60 ml/min/1.73 sqM); Albumin 3.2 g/dL (3.5-5.0); Alkaline Phosphatase 76 U/L (38-126); Anion Gap 4 mmol/L; Blood Urea Nitrogen 14 mg/dL (7-17); Calcium 8.5 mg/dL (8.4-10.2); Carbon Dioxide 28 mmol/L (22-30); Chloride 107 mmol/L (98-107); Glucose 77 mg/dL (74-99); Non-African American GFR(CKD) 87 (>60 ml/min/1.73 sqM); Potassium 4.6 mmol/L (3.5-5.1); Sodium 139 mmol/L (137-145); Total Bilirubin 0.3 mg/dL (0.2-1.3); Total Protein 5.8 g/dL (6.3-8.2)
--- NOTE | 2024-03-10 11:57 | P.PN ---
Progress Note - Text Progress Note Date: 03/10/24 Chief complaint: Psychosis Interval History: Patient was seen [wandering the hallways] and was directable and agreeable to speak with curriculum writer in the office. Meeting with the patient asking about the voices she notes that they are "keeping quiet". She notes that she does not have any visual hallucinations or paranoia. She denies any ongoing suicidal thoughts. She denies any depression or anxiety. She feels that her sleep, energy, appetite and concentration are normal.Patient denies any side effects from the medications and has been compliant with meds. Mental Status Exam: General Appearance: The patient appears older than her stated age. She looked disheveled. Additionally when talking sometimes she would mumble. Behavior: [Patient is calmly seated without any agitated behavior.] Speech: Patient's speech is fluent and nonpressured. Mood/Affect: Mood is improving mildly, affect is congruent and constricted. Suicidality/Homicidality: Patient denies having any suicidal or homicidal ideation intent or plan. Perceptions: Patient denies any visual hallucinations [and denies any auditory hallucinations] Though content/process: [There is no evidence of any delusional thought content and thought process is linear and goal-directed.] Memory and concentration: AOX3, grossly intact for the purposes of this session Judgment and insight: Improving mildly Diagnosis: Schizophrenia paranoid type Depression Mild intellectual disability Cannabis abuse Tobacco use disorder Assessment: Patient is presenting somewhat better and denying any psychotic symptoms. Will continue stabilization and reinforce not to use kratom upon discharge. Addendum in the intake note was placed due to the mistake of the patient being classified as transgender. PLAN: -Patient is admitted under voluntary status to [facility] for stabilization of psychiatric symptoms and safety. Patient has signed adult voluntary form and medication consent and is placed in patient's chart. -Medications : * Haldol 15 mg at night for schizophrenia * Haldol 5 mg in the morning for schizophrenia * Nicotine patch 14 mcg for nicotine cravings -Ativan and Haldol PRN for agitation/aggression -Patient was counselled on substance abuse and desired to cut back on use -Patient was informed of the risks, benefits and side effects of the medication and patient verbally consented to taking the medications. Patient signed med consent form and was placed in chart. -Internal Medicine consult to perform medical evaluation and physical. -NRT -nicotine patch -SW on board for discharge planning. Encourage patient to participate in groups to work on coping skills.
--- NOTE | 2024-03-11 10:59 | P.PN ---
Progress Note - Text Progress Note Date: 03/11/24 Chief complaint: Psychosis Interval History: Patient was seen in her room due to the patient resting. Staff had discussed at treatment team that the patient has been internally preoccupied at night including talking to herself and growling. I talked to the patient she notes that she does not have any auditory or visual hallucinations but notes that she has been arguing with people and was nonspecific. She denies any ongoing depression or anxiety. She denied any problems with sleep, energy, appetite or concentration. At this time patient denies any suicidal or homical ideations, intent or plan. Patient denies any side effects from the medications and has been compliant with meds. Mental Status Exam: General Appearance: Patient continues to present slightly disheveled and introverted. She presented older than her stated age. Behavior: Patient was somewhat irritable when finding out she was not leaving and appeared to be guarded Speech: Patient's speech is fluent and nonpressured. Mood/Affect: Mood is improving mildly, affect is congruent and constricted. Suicidality/Homicidality: Patient denies having any suicidal or homicidal ideation intent or plan. Perceptions: Patient denies any visual hallucinations however, overnight staff report internal stimuli. Though content/process: Patient did present with delusions of paranoia specifically unnamed people fighting with her. Memory and concentration: AOX3, grossly intact for the purposes of this session Judgment and insight: Improving mildly Diagnosis: Schizophrenia paranoid type Depression Mild intellectual disability Cannabis abuse Tobacco use disorder Assessment: Patient appears to be having nighttime episodes of psychosis and has been isolating herself in her room. Additionally she is presenting with paranoia. Past history indicates that the patient is unable to care for herself when in this current condition. Recommendations are to continue hospitalization. PLAN: -Patient is admitted under voluntary status to [facility] for stabilization of psychiatric symptoms and safety. Patient has signed adult voluntary form and medication consent and is placed in patient's chart. -Medications : Haldol 15 mg at night for schizophrenia Haldol 5 mg in the morning for schizophrenia Nicotine patch 14 mcg for nicotine cravings -Ativan and Haldol PRN for agitation/aggression -Patient was counselled on substance abuse and desired to cut back on use -Patient was informed of the risks, benefits and side effects of the medication and patient verbally consented to taking the medications. Patient signed med consent form and was placed in chart. -Internal Medicine consult to perform medical evaluation and physical. -NRT -nicotine patch -SW on board for discharge planning. Encourage patient to participate in groups to work on coping skills.
--- NOTE | 2024-03-12 19:53 | P.PN ---
Progress Note - Text Progress Note Date: 03/12/24 Interval history: Patient was directable and agreeable to speak with scenario writer. At this time patient denies any suicidal or homicidal ideation, intent or plan. Denies any auditory or visual hallucinations. Patient denies any side effects from the medications and has been compliant with meds. She asks about a release date, is discharge focused. She declines adjustments to her medications but asks for an "anxiety pill". She has received Ativan 1 mg po x 1 so far today. Mental status exam: General Appearance: [Patient appears to be stated age is alert, directable, and cooperative.] Behavior: [No agitated behavior. Patient is calm and directable] Speech: Patient's speech is dysarthric and nonpressured. Mood/Affect: Mood is improving mildly, affect is congruent and constricted. Suicidality/Homicidality: Patient denies having any suicidal or homicidal ideation intent or plan. Perceptions: Patient denies any auditory or visual hallucinations. Though content/process: There is no evidence of any delusional thought content and thought process is linear and goal-directed. Memory and concentration: AOX3, grossly intact for the purposes of this session Judgment and insight: improving mildly Assessment/Plan: Continue with current diagnosis. Patient continues to meet criteria for inpatient psychiatric admission for symptom stabilization and safety. Patient will be maintained on current psychotropic medication regimen.] Monitor for medication compliance and for any psychotropic medication side effects. Will continue to monitor ongoing response to treatment. Encouraged participation in milieu.
--- NOTE | 2024-03-13 19:16 | P.PN ---
Progress Note - Text Progress Note Date: 03/13/24 Interval history: Patient was directable and agreeable to speak with typewriter assembler. At this time patient denies any suicidal or homicidal ideation, intent or plan. Denies any auditory or visual hallucinations. Patient denies any side effects from the medications and has been compliant with meds. She asks about a release date again today, is discharge focused. She states she feels tension/restlessness and has been utilizing PRN Ativan 1 mg about 1-2 times per day. She declines adjustments to her medications and declines PRN Cogentin for EPS. She slept well last night. No agitation. She denies any other concerns. Mental status exam: General Appearance: Patient appears to be stated age, very short hair, dressed in sweats, fair hygiene. Behavior: No agitated behavior. Patient is calm and directable. Speech: Patient's speech is slightly dysarthric and non-pressured. Mood/Affect: Mood is improving mildly, affect is congruent and constricted. Suicidality/Homicidality: Patient denies having any suicidal or homicidal ideation intent or plan. Perceptions: Patient denies any auditory or visual hallucinations. Though content/process: There is no evidence of any delusional thought content and thought process is linear and goal-directed. Memory and concentration: AOX3, grossly intact for the purposes of this session. Judgment and insight: improving mildly. Assessment/Plan: Continue with current diagnosis. Patient continues to meet criteria for inpatient psychiatric admission for symptom stabilization and safety. Patient will be maintained on current psychotropic medication regimen. Monitor for medication compliance and for any psychotropic medication side effects. Will continue to monitor ongoing response to treatment. Encouraged participation in milieu.
[2024-03-13] MEDS: BENZTROPINE MESYLATE 0.5 MG TAB PO SCH (21:11)
--- NOTE | 2024-03-14 11:42 | P.PN ---
Progress Note - Text Progress Note Date: 03/14/24 Interval History: Patient was seen in the hallway, and agreeable to speak to selling underwriter in the office. She states that she is all right today. She is denying any anxiety today. She denied any problems with sleep, energy, appetite or concentration. Roadability Machine Operator spoke with patient about TAPIA, patient states that she would rather just stay on the PO meds at this time. At this time patient denies any suicidal or homicidal ideations, intent or plan. Patient denies any AH/VH. Patient denies any side effects from the medications and has been compliant with meds. Mental Status Exam: General Appearance: Patient continues to present slightly disheveled. She presented older than her stated age. Dressed casually, shaved head. Behavior: Patient was calmly seated Speech: Patient's speech is fluent and nonpressured. Mood/Affect: Mood is improving mildly, affect is congruent and constricted. Suicidality/Homicidality: Patient denies having any suicidal or homicidal ideation intent or plan. Perceptions: Patient denies any visual hallucinations, denies auditory hallucinations. Though content/process: improving mildly Memory and concentration: AOX3, grossly intact for the purposes of this session Judgment and insight: Improving mildly Assessment: Schizophrenia Mild intellectual disability Cannabis abuse Tobacco use disorder PLAN: -Patient is admitted under voluntary status to [facility] for stabilization of psychiatric symptoms and safety. -Medications : Haldol 15 mg at night for schizophrenia Haldol 5 mg in the morning for schizophrenia Nicotine patch 14 mcg for nicotine cravings -Ativan and Haldol PRN for agitation/aggression -NRT -nicotine patch - on board for discharge planning. Encourage patient to participate in groups to work on coping skills. Likely discharge thursday vs thursday.
[2024-03-14] MEDS: HALOPERIDOL DECANOATE 100 MG/ML 1 ML VIAL IM STA (13:30)
[2024-03-14] MEDS: haloperidoL 5 MG TAB PO ONE (20:08)
[2024-03-15] MEDS: haloperidoL 1 MG TAB PO ONE (08:30)
--- NOTE | 2024-03-15 11:37 | P.PN ---
Progress Note - Text Progress Note Date: 03/15/24 Interval History: Patient was seen in the hallway, and agreeable to speak to health underwriter in the office. She states that she is feeling better today. She states that she feels the shot of Haldol has helped her depression and anxiety. She denies any stiffness in her muscles. Glass Driller spoke to patient about getting her second dose of the TAPIA tomorrow, and then discharge if she continues to improve. She reports good sleep last night, and she states she has a good appetite. At this time patient denies any suicidal or homicidal ideations, intent or plan. Patient denies any AH/VH. Patient denies any side effects from the medications and has been compliant with meds. Mental Status Exam: General Appearance: Patient appears to have slightly improved grooming and hygiene. She presents older than her stated age. Dressed casually, shaved head. Behavior: Patient was calmly seated and cooperative, improving Speech: Patient's speech is fluent and nonpressured. Mood/Affect: Mood is better today, affect is congruent and constricted. mildly improving Suicidality/Homicidality: Patient denies having any suicidal or homicidal ideation intent or plan. Perceptions: Patient denies any visual hallucinations, denies auditory hallucinations. Though content/process: improving mildly Memory and concentration: AOX3, grossly intact for the purposes of this session Judgment and insight: Improving mildly Assessment: Schizophrenia Mild intellectual disability Cannabis abuse Tobacco use disorder PLAN: -Patient is admitted under voluntary status to [facility] for stabilization of psychiatric symptoms and safety. -Medications : Haldol D 100 mg IM given on 03/14, next dose of 50 mg IM will be due on 03/16 prior to discharge. d/c Haldol PO Nicotine patch 14 mcg for nicotine cravings -Ativan and Haldol PRN for agitation/aggression -NRT -nicotine patch - on board for discharge planning. Encourage patient to participate in groups to work on coping skills. Likely discharge 03/16 after second dose of Haldol D, if patient continues to improve
[2024-03-15 20:31] VITALS: TEMP 97.6
[2024-03-16 08:19] VITALS: BP 99/69; PULSE 100; RESP 20
[2024-03-16] MEDS: HALOPERIDOL DECANOATE 50 MG/ML 1 ML VIAL IM STA (10:12)
--- NOTE | 2024-03-16 10:19 | P.DS ---
Providers Date of admission: 03/08/24 23:59 Expected date of discharge: 03/16/24 Attending physician: Levy Ramirez MD Consults: 03/09/24 00:00 Consult Physician Routine Consulting Provider: Gudelia Guzmán Consult Reason/Comments: H&P and medical Do you want consulting provider notified?: Yes Primary care physician: [facility] Diagnosis(es) (1) Schizophrenia Current Visit: No Status: Acute Priority: High (2) Mild intellectual disability Current Visit: Yes Status: Acute Priority: Medium (3) Nicotine dependence Current Visit: Yes Status: Acute Priority: Low (4) Cannabis abuse Current Visit: Yes Status: Acute Priority: Medium Hospital Course: Admission HPI: Admission note was completed by Dr Leos] " Patient presented to the hospital a fter having a fall and called EMS to be transported to the hospital. She notes that her auditory hallucinations had gotten worse yesterday and she became overly concerned. She describes her auditory hallucinations as (inside her head, male and female, constant, familiar and unfamiliar, telling her negative things that people do not like her). She notes that the voices improve when she talks to other people. She notes recently she has been buying kratom [id number]. She denies any visual or paranoia. She notes that she does not have any ideas of reference. He notes last time she was depressed was yesterday. She notes no anxiety. Notes that she sleeps 8 hours at night. When asking about energy she remarked "my muscles are sore" but then continued to note that she had low energy. Appetite was good. She states that her concentrations "okay". Denied any problems with feelings of helplessness, hopelessness or worthlessness. The patient notes that she has not had any bouts of crying or feelings of guilt or shame. She denied any access to guns. Patient denies any suicidal or homicidal ideations intent or plan. Review of psychiatric systems patient denied any bipolar disorder symptoms, OCD, PTSD or anxiety history" Hospital course: Upon admission to the unit patient was directable and agreeable to commence treatment and signed adult voluntary form. Patient got along well with other patients on the unit and followed unit protocol. Patient was compliant with the medications and denied any side effects throughout hospital course. Patient was started on Haldol p.o., was transition onto Haldol the given 100 mg IM on 03/14, second dose of 50 mg IM was given on 03/16 prior to discharge. Patient's next dose of Haldol D 150 mg IM will be due on 04/04 at [facility]. Patient was discontinued off of Haldol p.o. restarted back on Cogentin 0.5 mg twice daily for EPS prophylaxis. Patient spoke of her stressors and engaged in therapy both group and individual. Patient was also seen by medical team for history and physical exam. Throughout the course of the hospitalization patient gradually improved with regards to mood, anxiety, psychosis, sleep and returned back to their baseline level of functioning. On the day of discharge patient denied any suicidal or homicidal ideations intent or plan denied any auditory or visual hallucinations. Patient endorsed wanting to live for her family and her health. The patient denied any access to guns or weapons. Patient denied any paranoia and did not endorse any delusions. Patient does have a significant history of substance abuse and was counseled on abstaining from all substances including alcohol and marijuana. Patient elected to do outpatient substance use treatment program through [facility]. Patient was also counseled on the medications and need for regular compliance and was encouraged to follow-up with their outpatient appointment for mental health and also for primary care. Prior to discharge a family meeting will be arranged by social professionals to answer any questions and ensure safety upon discharge. Patient will be discharged back home today Mental status exam: General Appearance: Patient appears to be thin, short hair, stated age is alert, pleasant, and cooperative. Patient is in no acute distress and has improved hygiene and grooming Behavior: Patient is calmly seated without any agitated behavior. Speech: Patient's speech is fluent and nonpressured. Mood/Affect: Patient reports their mood is "better", affect is congruent and euthymic. Suicidality/Homicidality: Patient denies having any suicidal or homicidal ideation intent or plan. Perceptions: Patient denies any auditory or visual hallucinations. Though content/process: There is no evidence of any delusional thought content a nd thought process is linear and goal-directed. Memory and concentration: AOX3, grossly intact for the purposes of this session. Can spell "WORLD" backwards correctly. Judgment and insight: Chronically limited, improved with guarded prognosis Impression: Schizophrenia Mild intellectual disability Cannabis abuse Tobacco use disorder Plan: -Continue with discharge today as patient has improved and stabilized psychiatrically and is not currently an imminent threat to herself and/or others. -Continue medications: Haldol D 150 mg IM q. 21 days, last dose was given on 03/14, next dose will be due on 04/04. Cogentin 0.5 mg twice daily for EPS prophylaxis. -Patient was counseled on the need for medication compliance and appropriate follow-up at mental health and also primary care for medical issues. Patient verbalized understanding and agreed. -Social work to help coordinate patient's discharge today back home. Social work also to arrange for patients follow up appointments with [facility] for psychiatric care along with follow up with primary care provider. -Patient counseled on abstaining from recreational drugs and marijuana and alcohol. Was informed/educated on the adverse effects on their physical and mental health. Patient verbally agreed and understood. -Patient was instructed to return to the hospital or seek immediate medical care if their psychiatric or medical symptoms do worsen or reoccur. Allergies Allergy/AdvReac Type Severity Reaction Status Date / Time aspirin AdvReac Nausea & Verified 03/09/24 14:28 Vomiting Laboratory Results WBC 4.8 k/uL (3.8-10.6) 03/10/24 06:14 RBC 3.89 m/uL (3.80-5.40) 03/10/24 06:14 Hgb 12.1 gm/dL (11.4-16.0) 03/10/24 06:14 Hct 38.2 % (34.0-46.0) 03/10/24 06:14 MCV 98.2 fL (80.0-100.0) 03/10/24 06:14 MCH 31.1 pg (25.0-35.0) 03/10/24 06:14 MCHC 31.7 g/dL (31.0-37.0) 03/10/24 06:14 RDW 13.8 % (11.5-15.5) 03/10/24 06:14 Plt Count 238 k/uL (150-450) 03/10/24 06:14 MPV 7.2 03/10/24 06:14 Neutrophils % 39 % 03/10/24 06:14 Lymphocytes % 37 % 03/10/24 06:14 Monocytes % 12 % 03/10/24 06:14 Eosinophils % 5 % 03/10/24 06:14 Basophils % 2 % 03/10/24 06:14 Neutrophils # 1.9 k/uL (1.3-7.7) 03/10/24 06:14 Lymphocytes # 1.8 k/uL (1.0-4.8) 03/10/24 06:14 Monocytes # 0.6 k/uL (0-1.0) 03/10/24 06:14 Eosinophils # 0.3 k/uL (0-0.7) 03/10/24 06:14 Basophils # 0.1 k/uL (0-0.2) 03/10/24 06:14 Hypochromasia Slight 03/10/24 06:14 Sodium 139 mmol/L (137-145) 03/10/24 06:43 Potassium 4.6 mmol/L (3.5-5.1) 03/10/24 06:43 Chloride 107 mmol/L (98-107) 03/10/24 06:43 Carbon Dioxide 28 mmol/L (22-30) 03/10/24 06:43 Anion Gap 4 mmol/L 03/10/24 06:43 BUN 14 mg/dL (7-17) 03/10/24 06:43 Creatinine 0.77 mg/dL (0.52-1.04) 03/10/24 06:43 Est GFR (CKD-EPI)AfAm >90 (>60 ml/min/1.73 sqM) 03/10/24 06:43 Est GFR (CKD-EPI)NonAf 87 (>60 ml/min/1.73 sqM) 03/10/24 06:43 Glucose 77 mg/dL (74-99) 03/10/24 06:43 Calcium 8.5 mg/dL (8.4-10.2) 03/10/24 06:43 Total Bilirubin 0.3 mg/dL (0.2-1.3) 03/10/24 06:43 AST 26 U/L (14-36) 03/10/24 06:43 ALT 14 U/L (4-34) 03/10/24 06:43 Alkaline Phosphatase 76 U/L (38-126) 03/10/24 06:43 Total Protein 5.8 g/dL (6.3-8.2) L 03/10/24 06:43 Albumin 3.2 g/dL (3.5-5.0) L 03/10/24 06:43 TSH 1.090 mIU/L (0.465-4.680) 03/10/24 06:43 Urine Color Colorless 03/08/24 19:40 Urine Appearance Clear (Clear) 03/08/24 19:40 Urine pH 6.5 (5.0-8.0) 03/08/24 19:40 Ur Specific Severance 1.003 (1.001-1.035) 03/08/24 19:40 Urine Protein Negative (Negative) 03/08/24 19:40 Urine Glucose (UA) Negative (Negative) 03/08/24 19:40 Urine Ketones Negative (Negative) 03/08/24 19:40 Urine Blood Negative (Negative) 03/08/24 19:40 Urine Nitrite Negative (Negative) 03/08/24 19:40 Urine Bilirubin Negative (Negative) 03/08/24 19:40 Urine Urobilinogen <2.0 mg/dL (<2.0) 03/08/24 19:40 Ur Leukocyte Esterase Negative (Negative) 03/08/24 19:40 Urine Opiates Screen Not Detected (NotDetected) 03/08/24 19:40 Ur Oxycodone Screen Not Detected (NotDetected) 03/08/24 19:40 Urine Methadone Screen Not Detected (NotDetected) 03/08/24 19:40 Ur Barbiturates Screen Not Detected (NotDetected) 03/08/24 19:40 U Tricyclic Antidepress Not Detected (NotDetected) 03/08/24 19:40 Ur Phencyclidine Scrn Not Detected (NotDetected) 03/08/24 19:40 Ur Amphetamines Screen Not Detected (NotDetected) 03/08/24 19:40 U Methamphetamines Scrn Not Detected (NotDetected) 03/08/24 19:40 U Benzodiazepines Scrn Not Detected (NotDetected) 03/08/24 19:40 Urine Cocaine Screen Not Detected (NotDetected) 03/08/24 19:40 U Marijuana (THC) Screen Detected (NotDetected) H 03/08/24 19:40 SARS-CoV-2 (PCR) Not Detected (Not Detectd) 03/08/24 23:00 Vital Signs Temp 97.6 F 03/16/24 08:18 Pulse 100 03/16/24 08:18 Resp 20 03/16/24 08:18 BP 99/69 03/16/24 08:18 Pulse Ox 97 03/15/24 20:30 FiO2 Patient Condition at Discharge: Stable Plan - Discharge Summary Discharge Rx Participant: No New Discharge Prescriptions: New Benztropine Mesylate [Cogentin] 0.5 mg PO BID 30 Days #60 tab Nicotine 14Mg/24Hr Patch [Habitrol] 1 patch TRANSDERM DAILY 14 Days #14 patch Haloperidol Decanoate [Haldol D] 150 mg IM Q21D #1 each Discontinued Acetaminophen Tab [Tylenol] 650 mg PO Q8H PRN PRN Reason: Pain Or Fever > 100.5 haloperidoL [Haldol] 15 mg PO HS QUEtiapine FUMARATE [SEROquel] 300 mg PO HS Atorvastatin [Lipitor] 10 mg PO HS haloperidoL [Haldol] 15 mg PO HS Benztropine Mesylate [Cogentin] 1 mg PO HS Apixaban [Eliquis Starter Pack (for VTE)] See Taper PO DIRECTED Discharge Medication List Benztropine Mesylate [Cogentin] 0.5 mg PO BID 30 Days #60 tab 03/16/24 [Rx] Haloperidol Decanoate [Haldol D] 150 mg IM Q21D #1 each 03/16/24 [Rx] Nicotine 14Mg/24Hr Patch [Habitrol] 1 patch TRANSDERM DAILY 14 Days #14 patch 03/16/24 [Rx] Follow up Appointment(s)/Referral(s): [facility] [Outside] - 03/18/24 1:00 pm (03/18/2024 1:00PM - 2:00PM JAMES SKINNER 03/31/2024 12:30PM - 1:00PM CELE RODRIGUEZ ) [facility] [Primary Care Provider] - 1 Week Patient Instructions/Handouts: How to Stop Smoking (DC), Schizophrenia (DC) Activity/Diet/Wound Care/Special Instructions: Avoid the use of street drugs and alcohol. Take all medications as prescribed. When you are in need of refills on your medications, please contact your medical provider and/or outpatient psychiatrist/provider to have this done. Please go to your scheduled outpatient appointment for aftercare treatment. If symptoms return or become worse, call the crisis line at and/or go to the nearest emergency room for evaluation. National Suicide Hotline 988 Discharge Disposition: HOME SELF-CARE
== END 2024-03-16 13:02 | disposition home or self-care (01) | DRG 750 ==
LOC: EEVIPCON 18:03 → EC 18:03 → 3MHU 23:59 → MERGE 23:59 → EDSEX 23:59
PROVIDERS: ADMIT Psychiatry & Neurology Psychiatry; ATTEND Psychiatry & Neurology Psychiatry
DX: F20.0 Paranoid schizophrenia (principal); F12.10 Cannabis abuse, uncomplicated; Z11.52 Encounter for screening for COVID-19; F17.210 Nicotine dependence, cigarettes, uncomplicated; F70 Mild intellectual disabilities; M06.9 Rheumatoid arthritis, unspecified; R45.851 Suicidal ideations; Z79.899 Other long term (current) drug therapy; Z62.810 Personal history of physical and sexual abuse in childhood; Z81.0 Family history of intellectual disabilities; Z82.49 Family history of ischemic heart disease and other diseases of the circulatory system; Z71.6 Tobacco abuse counseling; Z71.51 Drug abuse counseling and surveillance of drug abuser
CPT/HCPCS: 80053; 80061; 80306; 81003; 82075; 83036; 84443; 85025; 87635; 99285

== ENCOUNTER 2024-06-05 19:50 | Inpatient (IN) | payer OTHER ==
--- NOTE | 2024-06-05 19:54 | ED ---
SOB HPI - General Stated Complaint: SOB Time Seen by Provider: 06/05/24 19:51 Source: RN notes reviewed, old records reviewed Mode of arrival: EMS Limitations: no limitations - History of Present Illness Initial Comments: This is a 53-year-old female poor historian suspect developmental delay. Patient comes in with shortness of breath occasional cough and congestion no concern for fever with occasional chest pain. Severe weakness no appetite not able to eat or drink. Significant weight loss MD Complaint: shortness of breath, cough -: days(s) Severity: moderate Consistency: constant Improves With: nothing Worsens With: exertion Known History Of: COPD Context: recent URI, anxiety, recent illness Associated Symptoms: chest pain - Related Data Previous Rx's Medication Instructions Recorded Benztropine Mesylate [Cogentin] 0.5 mg PO BID 30 Days #60 tab 03/16/24 Haloperidol Decanoate [Haldol D] 150 mg IM Q21D #1 each 03/16/24 Nicotine 14Mg/24Hr Patch [Habitrol] 1 patch TRANSDERM DAILY 14 Days 03/16/24 #14 patch Allergies Allergy/AdvReac Type Severity Reaction Status Date / Time aspirin AdvReac Nausea & Verified 03/09/24 14:28 Vomiting Review of Systems ROS Statement: Those systems with pertinent positive or pertinent negative responses have been documented in the HPI. ROS Other: All systems not noted in ROS Statement are negative. Past Medical History Past Medical History: No Reported History Additional Past Medical History / Comment(s): polysubstance abuse. pt states she has not used drugs x 3 years. History of Any Multi-Drug Resistant Organisms: None Reported Past Surgical History: No Surgical Hx Reported Additional Past Surgical History / Comment(s): None stated Past Anesthesia/Blood Transfusion Reactions: No Reported Reaction Past Psychological History: No Psychological Hx Reported, Schizophrenia - Past Family History Mother Family Medical History: Myocardial Infarction ([place]) Additional Family Medical History / Comment(s): from heart attack Father Additional Family Medical History / Comment(s): from Heart attack General Exam General appearance: alert, in no apparent distress, anxious Head exam: Present: atraumatic, normocephalic, normal inspection Eye exam: Present: normal appearance, PERRL, EOMI. Absent: scleral icterus, conjunctival injection, periorbital swelling ENT exam: Present: normal exam, mucous membranes moist Neck exam: Present: normal inspection. Absent: tenderness, meningismus, ly mphadenopathy Respiratory exam: Present: wheezes, accessory muscle use, decreased breath sounds. Absent: respiratory distress, rales, rhonchi, stridor Cardiovascular Exam: Present: tachycardia, irregular rhythm, normal heart sounds. Absent: systolic murmur, diastolic murmur, rubs, gallop, clicks GI/Abdominal exam: Present: soft, normal bowel sounds. Absent: distended, tenderness, guarding, rebound, rigid Extremities exam: Present: normal inspection, full ROM, normal capillary refill. Absent: tenderness, pedal edema, joint swelling, calf tenderness Back exam: Present: normal inspection Neurological exam: Present: alert, oriented X3, CN II-XII intact Psychiatric exam: Present: normal affect, normal mood Skin exam: Present: warm, dry, intact, normal color. Absent: rash Course Vital Signs 06/05/24 06/05/24 06/05/24 19:53 20:25 20:35 Temperature 97.9 F Pulse Rate 53 L 106 H 107 H Respiratory 18 Rate Blood Pressure 118/79 O2 Sat by Pulse 97 Oximetry - Reevaluation(s) Reevaluation #1: 06/05/24 22:07 Medical records reviewed Reevaluation #2: 06/05/24 22:08 Patient symptoms unimproved Reevaluation #3: 06/05/24 22:08 Patient informed of results questions answered Reevaluation #4: Was pt. sent in by a medical professional or institution (, PA, ASSISTANT SPEECH LANGUAGE PATHOLOGIST, urgent care, hospital, or custodial...) When possible be specific @ -no Did you speak to anyone other than the patient for history (EMS, parent, family, police, friend...)? What history was obtained from this source @ -no Did you review nursing and triage notes (agree or disagree)? Why? @ -agree Are old charts reviewed (outside hosp., previous admission, EMS record, old EKG, old radiological studies, urgent care reports/EKG's, custodial records)? Report findings @ -yes Differential Diagnosis (chest pain, altered mental status, abdominal pain women, abdominal pain men, vaginal bleeding, weakness, fever, dyspnea, syncope, headache, dizziness, GI bleed, back pain, seizure, CVA, palpatations, mental health, musculoskeletal)? @ -prior EKG interpreted by me (3pts min.). @ -yes X-rays interpreted by me (1pt min.). @ -yes negative for acute disease CT interpreted by me (1pt min.). @ -no U/S interpreted by me (1pt. min.). @ -no What testing was considered but not performed or refused? (CT, X-rays, U/S, labs)? Why? @ -none What meds were considered but not given or refused? Why? @ -none Did you discuss the management of the patient with other professionals (professionals i.e. , PA, ASSISTANT SPEECH LANGUAGE PATHOLOGIST, lab, RT, psych nurse, social media coordinator, instrument lens grinder apprentice, teacher, science and operations officer, human services case manager)? Give summary @ -no Was smoking cessation discussed for >3mins.? @ -no Was critical care preformed (if so, how long)? @ -no Were there social determinants of health that impacted care today? How? (Homelessness, low income, unemployed, alcoholism, drug addiction, transportation, low edu. Level, literacy, decrease access to med. care, halfway, rehab)? @ -none Was there de-escalation of care discussed even if they declined (Discuss DNR or withdrawal of care, Hospice)? DNR status @ -no What co-morbidities impacted this encounter? (DM, HTN, Smoking, COPD, CAD, Cancer, CVA, ARF, Chemo, Hep., AIDS, mental health diagnosis, sleep apnea, morbid obesity)? @ -none Was patient admitted / discharged? Hospital course, mention meds given and route, prescriptions, significant lab abnormalities, going to OR and other pertinent info. @ - Undiagnosed new problem with uncertain prognosis? @ -no Drug Therapy requiring intensive monitoring for toxicity (Heparin, Nitro, Insulin, Cardizem)? @ -no Were any procedures done? @ -no Diagnosis/symptom? @ - Acute, or Chronic, or Acute on Chronic? @ -Acute Uncomplicated (without systemic symptoms) or Complicated (systemic symptoms)? @ -Complicated Side effects of treatment? @ -no Exacerbation, Progression, or Severe Exacerbation? @ -exacerbation Poses a threat to life or bodily function? How? (Chest pain, [place], [place], pneumonia, PE, COPD, DKA, ARF, appy, cholecystitis, CVA, Diverticulitis, Homicidal, Suicidal, threat to staff... and all critical care pts) @ -yes Reevaluation #5: Differential Dyspnea: Coronary syndrome, arrhythmia, tamponade, asthma, COPD, pulmonary embolism, pneumonia, pneumothorax, pulmonary effusion, anaphylaxis, diabetic ketoacidosis, flailed chest, pulmonary contusion, diaphragmatic rupture, anemia, neuromuscular, this is not meant to be an all-inclusive list. Differential Weakness: Hypoglycemia, shock, sepsis, hyponatremia, anemia, infection, [place], ETOH, adverse medicine reaction, overdose, stroke, this is not meant to be an all-inclusive list. Medical Decision Making - Medical Decision Making 53 female to ER with non-STEMI COPD exacerbation with CHF. Shortness of breath weakness, patient will be admitted - Lab Data Result diagrams: 06/05/24 20:24 06/05/24 20:24 Lab Results 06/05/24 06/05/24 06/05/24 Range/Units 20:24 20:24 20:24 WBC 6.5 (3.8-10.6) k/uL RBC 3.69 L (3.80-5.40) m/uL Hgb 11.3 L (11.4-16.0) gm/dL Hct 34.8 (34.0-46.0) % MCV 94.2 (80.0-100.0) fL MCH 30.8 (25.0-35.0) pg MCHC 32.6 (31.0-37.0) g/dL RDW 15.8 H (11.5-15.5) % Plt Count 405 (150-450) k/uL MPV 6.9 Neutrophils % 64 % Lymphocytes % 26 % Monocytes % 6 % Eosinophils % 1 % Basophils % 1 % Neutrophils # 4.2 (1.3-7.7) k/uL Lymphocytes # 1.7 (1.0-4.8) k/uL Monocytes # 0.4 (0-1.0) k/uL Eosinophils # 0.0 (0-0.7) k/uL Basophils # 0.1 (0-0.2) k/uL PT 11.1 (10.0-12.5) sec INR 1.0 (<1.2) APTT 23.2 (22.0-30.0) sec Sodium 139 (137-145) mmol/L Potassium 4.1 (3.5-5.1) mmol/L Chloride 104 (98-107) mmol/L Carbon Dioxide 30 (22-30) mmol/L Anion Gap 5 mmol/L BUN 14 (7-17) mg/dL Creatinine 0.77 (0.52-1.04) mg/dL Est GFR (CKD-EPI)AfAm >90 (>60 ml/min/1.73 sqM) Est GFR (CKD-EPI)NonAf 87 (>60 ml/min/1.73 sqM) Glucose 92 (74-99) mg/dL Calcium 8.9 (8.4-10.2) mg/dL Magnesium 2.0 (1.6-2.3) mg/dL Total Bilirubin 0.4 (0.2-1.3) mg/dL AST 59 H (14-36) U/L ALT 54 H (4-34) U/L Alkaline Phosphatase 75 (38-126) U/L Troponin I (0.000-0.034) ng/mL NT-Pro-B Natriuret Pep 4800 pg/mL Total Protein 5.7 L (6.3-8.2) g/dL Albumin 3.2 L (3.5-5.0) g/dL Lipase 171 (23-300) U/L Serum Alcohol <10 mg/dL 06/05/24 Range/Units 20:24 WBC (3.8-10.6) k/uL RBC (3.80-5.40) m/uL Hgb (11.4-16.0) gm/dL Hct (34.0-46.0) % MCV (80.0-100.0) fL MCH (25.0-35.0) pg MCHC (31.0-37.0) g/dL RDW (11.5-15.5) % Plt Count (150-450) k/uL MPV Neutrophils % % Lymphocytes % % Monocytes % % Eosinophils % % Basophils % % Neutrophils # (1.3-7.7) k/uL Lymphocytes # (1.0-4.8) k/uL Monocytes # (0-1.0) k/uL Eosinophils # (0-0.7) k/uL Basophils # (0-0.2) k/uL PT (10.0-12.5) sec INR (<1.2) APTT (22.0-30.0) sec Sodium (137-145) mmol/L Potassium (3.5-5.1) mmol/L Chloride (98-107) mmol/L Carbon Dioxide (22-30) mmol/L Anion Gap mmol/L BUN (7-17) mg/dL Creatinine (0.52-1.04) mg/dL Est GFR (CKD-EPI)AfAm (>60 ml/min/1.73 sqM) Est GFR (CKD-EPI)NonAf (>60 ml/min/1.73 sqM) Glucose (74-99) mg/dL Calcium (8.4-10.2) mg/dL Magnesium (1.6-2.3) mg/dL Total Bilirubin (0.2-1.3) mg/dL AST (14-36) U/L ALT (4-34) U/L Alkaline Phosphatase (38-126) U/L Troponin I 0.049 H* (0.000-0.034) ng/mL NT-Pro-B Natriuret Pep pg/mL Total Protein (6.3-8.2) g/dL Albumin (3.5-5.0) g/dL Lipase (23-300) U/L Serum Alcohol mg/dL - EKG Data -: EKG Interpreted by Me (EKG is A-fib with RVR 118 QRS 100 QTc 388) - Radiology Data Radiology results: report reviewed (Chest x-ray is positive for CHF), image reviewed Critical Care Time Critical Care Time: Yes Total Critical Care Time: 31 Disposition Clinical Impression: Acute exacerbation of chronic obstructive pulmonary disease, Acute pulmonary edema, Congestive heart failure, NSTEMI (non-ST elevated myocardial infarction) Disposition: ADMITTED IP TO THIS HOSP Condition: Serious Is patient prescribed a controlled substance at d/c from ED?: No Referrals: [facility] [Primary Care Provider] - 1-2 days Time of Disposition: 22:00
[2024-06-05] MEDS: IPRATROPIUM-ALBUTEROL 3 ML NEB INHALATION STA ×3 (20:24→23:34)
[2024-06-05] MEDS: LORazepam 2 MG/ML INJ IV STA (20:39)
[2024-06-05] MEDS: SODIUM CHLORIDE 0.9% 1,000 ML IV STA (20:42)
[2024-06-05 20:47] LABS: Basophils # (A) 0.1 k/uL (0-0.2); Basophils % (A) 1 %; Eosinophils % (A) 1 %; HCT 34.8 % (34.0-46.0); HGB 11.3 gm/dL (11.4-16.0); Lymphocytes # (A) 1.7 k/uL (1.0-4.8); Lymphocytes % (A) 26 %; MCH 30.8 pg (25.0-35.0); MCHC 32.6 g/dL (31.0-37.0); MCV 94.2 fL (80.0-100.0); Mean Platelet Volume 6.9; Monocytes # (A) 0.4 k/uL (0-1.0); Monocytes % (A) 6 %; Neutrophils # (A) 4.2 k/uL (1.3-7.7); Neutrophils % (A) 64 %; Platelet Count 405 k/uL (150-450); RBC 3.69 m/uL (3.80-5.40); RDW 15.8 % (11.5-15.5); WBC 6.5 k/uL (3.8-10.6)
[2024-06-05 20:55] LABS: ALT 54 U/L (4-34); AST 59 U/L (14-36); African American GFR (CKD) >90 (>60 ml/min/1.73 sqM); Albumin 3.2 g/dL (3.5-5.0); Alcohol <10 mg/dL; Alkaline Phosphatase 75 U/L (38-126); Anion Gap 5 mmol/L; Blood Urea Nitrogen 14 mg/dL (7-17); Calcium 8.9 mg/dL (8.4-10.2); Carbon Dioxide 30 mmol/L (22-30); Chloride 104 mmol/L (98-107); Glucose 92 mg/dL (74-99); Lipase 171 U/L (23-300); Non-African American GFR(CKD) 87 (>60 ml/min/1.73 sqM); Potassium 4.1 mmol/L (3.5-5.1); Sodium 139 mmol/L (137-145); Total Bilirubin 0.4 mg/dL (0.2-1.3); Total Protein 5.7 g/dL (6.3-8.2)
[2024-06-05 21:00] LABS: NT-Pro-B-Type Natriuretic Pept 4800 pg/mL
[2024-06-05 21:02] LABS: Partial Thromboplastin Time 23.2 sec (22.0-30.0); Prothrombin Time 11.1 sec (10.0-12.5)
--- NOTE | 2024-06-05 21:58 | XR ---
EXAMINATION TYPE: XR chest 2V DATE OF EXAM: 06/05/2024 9:49 PM COMPARISON: Previous chest radiograph 02/21/2023. CLINICAL INDICATION: Female, 53 years old with history of difficulty breathing; [facility] TECHNIQUE: XR chest 2V Frontal and lateral views of the chest. FINDINGS: Cardiomegaly. Patchy bilateral interstitial and airspace opacities. No sizable pleural effusion. No pneumothorax. No acute osseous abnormality. IMPRESSION: Cardiomegaly and patchy bilateral interstitial and airspace opacities which could reflect sequelae of pulmonary edema versus multifocal pneumonia. Recommend clinical correlation. [facility], , 06/05/2024 9:55 PM
[2024-06-05] MEDS ORDERED: PNEUMONIA PROTOCOL UTILIZED 1 EACH MISC PO PRN (23:16)
[2024-06-05] MEDS: methylPREDNISolone SOD SUCCI 125 MG/2 ML VIAL IV STA (23:30)
[2024-06-05] MEDS: FUROSEMIDE 10 MG/ML 4 ML VIAL IV SCH (23:31)
[2024-06-05] MEDS: SODIUM CHLORIDE 0.9% 1,000 ML IV SCH (23:38)
[2024-06-05] MEDS: NITROGLYCERIN OINT 1 INCH/GM PACKET TOPICAL SCH (23:54)
[2024-06-06] MEDS: methylPREDNISolone SOD SUCCI 125 MG/2 ML VIAL IV SCH (00:01)
--- NOTE | 2024-06-06 00:05 | CT ---
EXAM: CT Angiography Chest With Intravenous Contrast CLINICAL HISTORY: ITS.REASON CT Reason: pe TECHNIQUE: Axial computed tomographic angiography images of the chest with intravenous contrast. CTDI is 15.27 mGy and DLP is 271.8 mGy-cm. This CT exam was performed using one or more of the following dose reduction techniques: automated exposure control, adjustment of the mA and/or kV according to patient size, and/or use of iterative reconstruction technique. MIP reconstructed images were created and reviewed. COMPARISON: No relevant prior studies available. FINDINGS: Limitations: Motion artifact. Pulmonary arteries: Adequate pulmonary artery opacification. Mildly enlarged main pulmonary artery may reflect mild palmar arterial hypertension. No evidence of acute pulmonary embolism. Aorta: No acute findings. No aortic aneurysm. Lungs: Emphysema. Widespread bilateral peripheral nodular opacities bilaterally, new from prior. No regions of cavitation. Largest nodular opacity is in the lateral right upper lobe and measures 2.8 x 1.8 cm (series 401, image 75). Pleural space: Small left pleural effusion. No pneumothorax. Heart: Cardiomegaly with significant left atrial enlargement. Coronary artery atherosclerosis. Mitral annular calcification. No significant pericardial effusion. Bones/joints: No acute fracture. No dislocation. Soft tissues: Unremarkable. Lymph nodes: Unremarkable. No enlarged lymph nodes. IMPRESSION: 1. No evidence of acute pulmonary embolism. 2. Widespread bilateral peripheral nodular opacities, new from prior. No regions of cavitation. Appearance is favored infectious, with early septic emboli not excluded. Clinical correlation, 3 month follow-up CT recommended.
[2024-06-06] MEDS ORDERED: MELATONIN 5 MG TABLET PO PRN (00:15)
[2024-06-06] MEDS ORDERED: HEPARIN SODIUM 1,000 UN/ML (10ML VL) IV PRN (00:45)
[2024-06-06] MEDS: AZITHROMYCIN 500 MG in SODIUM CHLORIDE 0.9% 250 ML IVPB STA (01:17)
[2024-06-06] MEDS: HEPARIN SODIUM 1,000 UN/ML (10ML VL) IV ONE (01:18)
[2024-06-06] MEDS: DILTIAZEM 125 MG in SODIUM CHLORIDE 0.9% 100 ML IV SCH (01:24)
[2024-06-06] MEDS: DILTIAZEM DRIP BOLUS FROM BAG 1 MG SOLN IV ONE (01:25)
[2024-06-06] MEDS: HEPARIN SOD,PORK IN 0.45% NACL 25,000 UNIT in 0.45% NACL 1 250ML.BAG IV SCH (01:30)
--- NOTE | 2024-06-06 03:14 | P.CNPUL ---
History of Present Illness Consult date: 06/06/24 Requesting physician: Agiular Menchaca Reason for consult: COPD Chief complaint: Shortness of breath and cough History of present illness: Patient is a 53-year-old female with past medical history significant for schizophrenia, polysubstance abuse, rheumatoid arthritis, tobacco dependence. Reportedly follows at [facility] clinic. Patient originally presented Emergency Department last night complaining chiefly shortness of breath, cough, and chest pain. While in the ED, patient noted to be in atrial fibrillation with rapid ventricular response, with a rate as high as 150s bpm. She was started on a combination of IV Cardizem and anticoagulated on IV heparin. D-dimer was elevated at 7.8, triggering CT angio protocol. Chest CT angio did not show any acute filling defects consistent with pulmonary emboli. Emphysematous changes. Widespread bilateral peripheral nodular opacities, with the largest measuring up to 2.8 x 1.8 cm. CBC: WBC count 6.5, hemoglobin 11.3, hematocrit 34.8, platelets 405. CMP: Sodium 139, potassium 4.1, chloride 104, serum bicarb 30, BUN 14, creatinine 0.77, glucose 92. LFTs mildly elevated. Troponins elevated at 0.049 and 0.055 respectively. NT proBNP elevated 4800. EKG: Atrial fibrillation with rapid ventricular response, rate 137 bpm, nonspecific ST/T wave changes. Patient started on empiric antibiotics in the ED. She is currently being evaluated in room 24. Patient does awaken and answer questions; however, she is a questionable historian. Primary complaint is shortness of breath and cough, described mostly as nonproductive. Denies sputum production, hemoptysis, chest pain. Denies any fever/chills. Denies any sick contacts. Reports history of rheumatoid arthritis. Denies history of known malignancy. Endorses undetermined amount of weight loss as she recently lost her bridge card. Denies any chest pain, heart palpitations, lightheadedness, syncopal events, orthopnea, lower extremity edema. Denies history of atrial fi brillation. Heart rhythm on bedside monitor appears atrial fibrillation with rapid ventricular response in the 120s beats per minute. Cardizem is infusing at 5 mg/min, as well as, IV heparin protocol. Current vital signs: Afebrile, heart rate 122 bpm, blood pressure 139/51 mmHg, nontachypneic, respiratory rate is 95% on 2 L/min nasal cannula. Review of Systems Constitutional: Reports fatigue, Reports weight loss, Denies chills, Denies fever, Denies night sweats, Denies poor appetite, Denies sweats, Denies weight gain Ears, nose, mouth and throat: Denies headache, Denies nasal congestion, Denies nasal discharge, Denies post-nasal drip, Denies sinus pain, Denies sinus pressure, Denies sore throat Cardiovascular: Reports as per HPI Respiratory: Reports as per HPI, Denies home oxygen Gastrointestinal: Denies abdominal pain, Denies change in bowel habits, Denies diarrhea, Denies nausea, Denies vomiting Genitourinary: Denies dysuria Musculoskeletal: Denies hot joints, Denies limitation of motion, Denies morning stiffness, Denies redness of joints Integumentary: Denies rash Neurological: Denies seizures, Denies syncope Psychiatric: Denies anxiety, Denies depression, Denies hallucinations, Denies paranoia, Denies suicidal ideation Hematologic/Lymphatic: Denies lymphadenopathy Past Medical History Past Medical History: No Reported History Additional Past Medical History / Comment(s): polysubstance abuse. pt states she has not used drugs x 3 years. History of Any Multi-Drug Resistant Organisms: None Reported Past Surgical History: No Surgical Hx Reported Additional Past Surgical History / Comment(s): None stated Past Anesthesia/Blood Transfusion Reactions: No Reported Reaction Past Psychological History: No Psychological Hx Reported, Schizophrenia - Past Family History Mother Family Medical History: Myocardial Infarction ([place]) Additional Family Medical History / Comment(s): from heart attack Father Additional Family Medical History / Comment(s): from Heart attack Medications and Allergies Home Medications Medication Instructions Recorded Confirmed Type Benztropine Mesylate [Cogentin] 0.5 mg PO BID 30 Days #60 tab 03/16/24 06/06/24 Rx Haloperidol Decanoate [Haldol D] 150 mg IM Q21D #1 each 03/16/24 06/06/24 Rx Allergies Allergy/AdvReac Type Severity Reaction Status Date / Time aspirin AdvReac Nausea & Verified 06/06/24 08:50 Vomiting Physical Exam Vitals: Vital Signs Temp Pulse Resp BP Pulse Ox 06/06/24 00:02 152 H 20 108/31 95 06/05/24 23:39 144 H 20 139/51 89 L 06/05/24 22:29 123 H 06/05/24 22:18 124 H 06/05/24 20:35 107 H 06/05/24 20:25 106 H 06/05/24 19:53 97.9 F 53 L 18 118/79 97 Intake and Output 06/05/24 06/05/24 06/06/24 14:59 22:59 06:59 Output Total 1000 Balance -1000 Output: Urine 1000 Other: Weight 54.431 kg GENERAL EXAM: Alert, 53-year-old white female, frail, comfortable in no apparent distress. HEAD: Normocephalic and atraumatic EYES: Normal reaction of pupils, equal size. NOSE: Clear with pink turbinates. THROAT: No erythema or exudates. NECK: No masses, no JVD. CHEST: No chest wall deformity. LUNGS: Equal air entry with bilateral expiratory wheezing. on 2 L/min nasal cannula. No conversational dyspnea or accessory muscle use.. CVS: S1 and S2 normal with grade 3 systolic murmur, irregular rhythm. No other extra heart sounds ABDOMEN: No hepatosplenomegaly, active bowel sounds, no guarding or rigidity. SPINE: No scoliosis or deformity SKIN: No rashes CENTRAL NERVOUS SYSTEM: No focal deficits, tone is normal in all 4 extremities. EXTREMITIES: There is no peripheral edema, clubbing, or cyanosis. No swan-neck deformity, ulnar deviation, or cutaneous nodules. Peripheral pulses are intact. Results - Laboratory Findings CBC and BMP: 06/05/24 20:24 06/05/24 20:24 PT/INR, D-dimer PT 11.1 sec (10.0-12.5) 06/05/24 20:24 INR 1.0 (<1.2) 06/05/24 20:24 D-Dimer 7.80 mg/L FEU (<0.60) H 06/05/24 20:24 Abnormal lab findings: Abnormal Labs 06/05/24 06/05/24 06/05/24 20:24 20:24 20:24 RBC 3.69 L Hgb 11.3 L RDW 15.8 H D-Dimer AST 59 H ALT 54 H Creatine Kinase Troponin I 0.049 H* Total Protein 5.7 L Albumin 3.2 L 06/05/24 06/05/2406/05/25 20:24 20:24 23:44 RBC Hgb RDW D-Dimer 7.80 H AST ALT Creatine Kinase 166 H Troponin I 0.055 H* Total Protein Albumin - Diagnostic Findings Chest x-ray: image reviewed CT scan - chest: image reviewed Assessment and Plan Assessment: Acute COPD exacerbation Atrial fibrillation with rapid ventricular response, new onset, currently on IV Cardizem at 5 mg/h as well as IV heparin protocol Multiple pulmonary nodular densities, Chest CT angio did not show any acute filling defects consistent with pulmonary emboli. Emphysematous changes noted. Widespread bilateral peripheral nodular opacities, with the largest measuring up to 2.8 x 1.8 cm. No central cavitations. No lymphadenopathy. Consider infectious process versus inflammatory or rheumatoid lung manifestations. Malignancy is within the differential but felt to be less likely at this time. Acute hypoxemic respiratory failure, secondary to a combination of above Possible acute CHF exacerbation, unknown ejection fraction Elevated troponins, rule out non-ST elevation MA History of rheumatoid arthritis, not on any DMARDs or Biologics Chronic ongoing tobacco dependence, with over [id number] history, currently smokes 1 to 2 packs/day History of polysubstance abuse, however, denies any current recreational drug use Schizophrenia Plan: Patient's medications, labs, imaging reviewed Continue supplemental oxygen maintain oxygen saturation of 92% or greater Started on combination of bronchodilators [id number] and IV Solu-Medrol Also, started on empiric antibiotics in the ED. Check procalcitonin level Smoking cessation counseling performed greater than 3 minutes Nicotine patch offered Cardiology is consulted. Currently on IV heparin protocol and on IV Cardizem at 5 mg/h Heart rhythm remains atrial fibrillation, ventricular response better controlled Also, receiving Lasix 40 mg twice daily Transthoracic echocardiogram ordered Case will be discussed with Dr. Apodaca, further recommendations to follow I have personally seen and examined the patient, performed the documentation and the assessment and plan as written. Number of minutes spent on the visit:20 This is a joint evaluation that was done along with the nurse practitioner. This evaluation was done more than 30 minutes. In summary, the patient is known to have COPD and she is a chronic smoker. The patient also has polysubstance abuse, rheumatoid arthritis and she is not receiving any form of immunosuppressive agents on outpatient basis. She suffers from schizophrenia and she is essentially a poor historian. She presented to us with worsening shortness of breath. A CTA of the chest was done that showed no evidence of any pulm embolism. There was background COPD. The same time there is significant nodular opacities bilaterally assuming a subpleural distribution. However, of concern is a nodule in the right upper lobe laterally measuring 2.8 x 1.8 cm that obviously needs to be followed up. The exact nature of this pulmonary nodules are not clear. Noted the previous CAT scan of the chest that was done on this patient on 02/22/2024 did not reveal those abnormalities. She does have a hiatal hernia. She has some chronic scarring in lung base bilaterally in addition to background COPD. For now, the patient is being treated with a combination of Rocephin and Zithromax. The patient was started on albuterol nebulized treatments [id number] 4 times a day. She was started on IV Solu-Medrol. Her white cell count is not elevated. proBNP level was 4800, trop onins were positive and the patient was found to be in atrial fibrillation with rapid ventricular response for which the patient was started on Cardizem drip for rate control. She is also on IV Cardizem drip at 5 mg an hour for rate control. Cardiology consultation is pending. Will check procalcitonin level. Check rheumatoid factor. Will check cultures. Repeat chest x-ray from this morning shows again interstitial and multifocal patchy opacities which seems to be looking stable. As far as these pulmonary abnormalities, this could be infectious, inflammatory ministration with rheumatoid arthritis. Malignancy cannot be completely ruled out. Obviously outpatient follow-up will be needed. PET scan at a later stage and biopsy if needed. Time with Patient: Greater than 30
--- NOTE | 2024-06-06 04:22 | P.HPIM ---
History of Present Illness H&P Date: 06/06/24 Patient is a 53-year-old with past medical history of CHF (EF of 55-60 from echo in 2021), COPD not on home oxygen, rheumatoid arthritis, polysubstance abuse, schizophrenia, tobacco dependence, and mild intellectual disability who presented to the ER with chief complaint of shortness of breath and no nproductive cough. She states her shortness of breath has been progressive getting worse and that is what prompted her to come to the ER. Patient does also endorses unspecified amount of weight loss, but denies history of malignancy. Patient states she follows with Joann from [facility]. Patient does answer questions, but seems unsure at times. It is noted that while patient was in the ED she was noted to be in A-fib. Patient denies any history of A-fib or blood thinner use. She denies chest pain, orthopnea, lower extremity edema, abdominal pain, fevers, chills, nausea, vomiting, diarrhea, urinary or bowel complaints. Vitals on admission temperature 97.9, heart rate 53 bpm, respiratory rate 18, blood pressure 118/79, O2 saturation 97% on room air EKG independently interpreted as A-fib with RVR, rate of 137 bpm and QTc of 368 ms CXR shows cardiomegaly and patchy bilateral interstitial and airspace opacities, questionable pulmonary edema versus multifocal pneumonia CTA showed no evidence of acute pulmonary embolism Labs on admission show WBC 6.5, hemoglobin 11.3, MCV 94.2, platelets 405. PT 11.1, INR 1, PTT 23.2, D-dimer 7.8. Sodium 139, potassium 4.1, chloride 104, bicarb 30, BUN 14, creatinine 0.77, glucose 92. Calcium 8.9, magnesium 2.0. AST 59, ALT 54. CK 166. Troponin 0.055, 0.053. NT proBNP 4800. Serum alcohol was negative Review of systems: Pertinent positives and negatives as discussed in HPI, a complete review of systems was performed and all other systems are negative. Allergies: PCP: Joann from [facility] Social history: Tobacco: pack a day Alcohol: none Recreational drugs: none Travel: none Sick contacts: none Physical examination: Vital signs reviewed General: nontoxic, no distress, appears older than stated age, thin currently on 2L [place] oxygen Derm: warm, dry, intact Head: atraumatic, normocephalic, symmetric Eyes: anicteric sclera Mouth: no lip lesion, mucus membranes moist Cardiovascular: Irregularly irregular rhythm Lungs: Bilateral expiratory wheezing, no accessory muscle use Abdominal: soft, non-tender to palpation, nondistended Extremities: No cyanosis, clubbing, or pedal edema. Neuro: Alert, Oriented to person, time and place, Gross neurological examination did not reveal any focal deficits. Cranial nerves II to XII grossly intact. Bilateral upper and lower extremity muscle strength intact and sensation intact. Psych: Frail appearing, appropriate affect Assessment/Plan: Patient is a 53-year-old female with past medical of CHF, COPD, RA, polysubstance abuse, schizophrenia, tobacco dependence, and mild intellectual disability who presented to the ED with chief complaint of shortness of breath and cough. Case was discussed with the ER physician and patient will be admitted to internal medicine service for further evaluation Active: Acute hypoxic respiratory failure Acute COPD exacerbation Currently on 2 L nasal cannula Wean oxygen as tolerated to maintain oxygen saturations of greater than 94% DuoNebs 4 times daily and every 2 hours as needed Consult pulmonology Check procalcitonin levels Continue azithromycin 500 mg daily Continue ceftriaxone 2 g daily Continue Solu-Medrol 60 mg every 6 hours Acute exacerbation of CHF with preserved ejection fraction Follow-up echocardiogram C/w Lasix 40 mg IV every 12 hours Strict intake and output Daily weight Cardiology consult Cardiac monitoring Obtain daily BMP and Magnesium levels F/u Echocardiogram Elevated troponin, likely type II [place] in setting of acute CHF and COPD exacerbation Troponin plateaued Patient currently denying chest discomfort Cardiology consult Cardiac monitoring A-fib with RVR, new onset Continue Cardizem drip Follow-up echocardiogram Consult Cardiology Chronic: Schizophrenia May resume home meds once confirmed F: KVO E: Replete as needed N: Heart healthy A: As tolerated DVT prophylaxis: Lovenox Subq The patient is admitted with an anticipated more than 2 midnight stay for evaluation of acute hypoxic respiratory failure, NSTEMI, A-fib with RVR CODE STATUS: Full code Discussed with: Patient Anticipated discharge place: Pending clinical course Past Medical History Past Medical History: No Reported History Additional Past Medical History / Comment(s): polysubstance abuse. pt states she has not used drugs x 3 years. History of Any Multi-Drug Resistant Organisms: None Reported Past Surgical History: No Surgical Hx Reported Additional Past Surgical History / Comment(s): None stated Past Anesthesia/Blood Transfusion Reactions: No Reported Reaction Past Psychological History: No Psychological Hx Reported, Schizophrenia - Past Family History Mother Family Medical History: Myocardial Infarction ([place]) Additional Family Medical History / Comment(s): from heart attack Father Additional Family Medical History / Comment(s): from Heart attack Medications and Allergies Home Medications Medication Instructions Recorded Confirmed Type Benztropine Mesylate [Cogentin] 0.5 mg PO BID 30 Days #60 tab 03/16/24 Rx Haloperidol Decanoate [Haldol D] 150 mg IM Q21D #1 each 03/16/24 Rx Nicotine 14Mg/24Hr Patch [Habitrol] 1 patch TRANSDERM DAILY 14 Days 03/16/24 Rx #14 patch Allergies Allergy/AdvReac Type Severity Reaction Status Date / Time aspirin AdvReac Nausea & Verified 03/09/24 14:28 Vomiting Physical Exam Vitals: Vital Signs Temp Pulse Resp BP Pulse Ox 06/06/24 00:02 152 H 20 108/31 95 06/05/24 23:39 144 H 20 139/51 89 L 06/05/24 22:29 123 H 06/05/24 22:18 124 H 06/05/24 20:35 107 H 06/05/24 20:25 106 H 06/05/24 19:53 97.9 F 53 L 18 118/79 97 Intake and Output 06/05/24 06/05/24 06/06/24 14:59 22:59 06:59 Output Total 1000 Balance -1000 Output: Urine 1000 Other: Weight 54.431 kg Results CBC & Chem 7: 06/05/24 20:24 06/05/24 20:24 Labs: Abnormal Lab Results - Last 24 Hours (Table) 06/05/24 06/05/24 06/05/24 Range/Units 20:24 20:24 20:24 RBC 3.69 L (3.80-5.40) m/uL Hgb 11.3 L (11.4-16.0) gm/dL RDW 15.8 H (11.5-15.5) % D-Dimer (<0.60) mg/L FEU AST 59 H (14-36) U/L ALT 54 H (4-34) U/L Creatine Kinase (30-135) U/L Troponin I 0.049 H* (0.000-0.034) ng/mL Total Protein 5.7 L (6.3-8.2) g/dL Albumin 3.2 L (3.5-5.0) g/dL 06/05/24 06/05/24 06/05/24 Range/Units 20:24 20:24 23:44 RBC (3.80-5.40) m/uL Hgb (11.4-16.0) gm/dL RDW (11.5-15.5) % D-Dimer 7.80 H (<0.60) mg/L FEU AST (14-36) U/L ALT (4-34) U/L Creatine Kinase 166 H (30-135) U/L Troponin I 0.055 H* (0.000-0.034) ng/mL Total Protein (6.3-8.2) g/dL Albumin (3.5-5.0) g/dL
[2024-06-06] MEDS: ALBUTEROL NEBULIZED 2.5 MG/3 ML INHALATION SCH (07:25)
--- NOTE | 2024-06-06 08:15 | XR ---
EXAMINATION TYPE: XR chest 1V portable DATE OF EXAM: 06/06/2024 4:53 AM COMPARISON: 06/05/2024 CLINICAL INDICATION: Female, 53 years old with history of pneumonia, , FINDINGS: Heart moderately enlarged. Hyperinflation. Diffuse interstitial and patchy opacities bilaterally show s minimal improvement. No sizable pleural effusion. Rounded retrocardiac density could reflect an und erlying hiatal hernia. IMPRESSION: 1. Moderate cardiomegaly and COPD. 2. Superimposed interstitial and multifocal patchy opacities with slight interval improvement. 3. Possible underlying moderate to large hiatal hernia. [facility], Workstation: [facility], 06/06/2024 8:13 AM
[2024-06-06] MEDS: AZITHROMYCIN 500 MG in SODIUM CHLORIDE 0.9% 250 ML IVPB SCH (08:27)
[2024-06-06] MEDS: ENOXAPARIN 40 MG/0.4 ML SYRINGE SQ SCH (08:28)
[2024-06-06] MEDS: NICOTINE 21MG/24HR PATCH TRANSDERM SCH (08:29)
[2024-06-06] MEDS: METOPROLOL TARTRATE 50 MG TAB PO SCH (09:59)
[2024-06-06] MEDS: HALOPERIDOL DECANOATE 100 MG/ML 1 ML VIAL IM SCH (11:11)
[2024-06-06] MEDS: BENZTROPINE MESYLATE 0.5 MG TAB PO SCH (11:11)
[2024-06-06 11:59] VITALS: BMI 18.8
--- NOTE | 2024-06-06 12:21 | P.CRDCN ---
History of Present Illness Consult date: 06/06/24 Reason for Consult (text): NSTEMI History of present illness: This is a 53-year-old female patient of Dr. Leonor Ayala with past medical history of severe mitral regurgitation with partial flail of the mitral leaflet, schizophrenia, tobacco use and dependence. We have been asked to evaluate the patient for NSTEMI. Most of the information is obtained from the patient's record. Patient has not been cooperative with staff, not willing to provide information. Patient presented to the hospital due to shortness of breath, occasional cough and congestion. Also occasional chest pain. Patient apparently complained of severe weakness and no appetite and not eating or drinking with significant weight loss. Patient was found to be in atrial f ibrillation. Patient has been started on a Cardizem drip at 5 mg/h, heparin drip and is also on IV antibiotics and IV steroids. She has converted to sinus rhythm and Cardizem drip has been on hold. Patient is seen today in the emergency center waiting for a bed on the cardiac stepdown unit. Blood pressure 118/50, heart rate 90, pulse ox 97% on room air. -EKG: Atrial fibrillation at 118 bpm, #2 atrial fibrillation 137 bpm -Chest x-ray: Cardiomegaly and patchy bilateral interstitial and airspace opacities which could reflect sequela of pulmonary edema versus multifocal pneumonia. -CTA chest: No evidence of acute pulmonary embolism. Widespread bilateral peripheral nodular opacities new. Appearance is favored infectious with early septal emboli not excluded. -Laboratory studies: WBC 6.5, hemoglobin 11.3. D-dimer 7.8. Electrolytes and renal function are normal. Troponins 0.049, 0.055, 0.053. proBNP 4800. CK1 166. AST 59 and ALT 54. -Home cardiac medications: None - Review Of Systems: At the time of my exam: CONSTITUTIONAL: Denies fever or chills. HEENT: Denies blurred vision, vision changes, or eye pain. Denies hemoptysis CARDIOVASCULAR: Denies chest pain. Denies orthopnea. Denies PND. Denies palpitations RESPIRATORY: Denies shortness of breath. GASTROINTESTINAL: Denies abdominal pain. Denies nausea or vomiting. HEMATOLOGIC: Denies bleeding disorders. GENITOURINARY: Denies any blood in urine. SKIN: Denies puritis. Denies rash. Physical examination: Gen: This is a thin cachectic appearing 53-year-old female in no acute respiratory distress VS: reviewed HEENT: Head is atraumatic, normocephalic. Pupils equal, round. Sclerae is anicteric. NECK: Supple. No JVD. LUNGS: Diminished bilaterally. No intercostal retractions. HEART: Regular rate and rhythm. Harsh murmur. ABDOMEN: Soft No tenderness. EXTREMITIES: No pedal edema. No calf tenderness. NEUROLOGICAL: Patient is awake, alert. Assessment: Elevated but flat troponins, acute coronary syndrome ruled out New onset paroxysmal atrial fibrillation with RVR, currently in sinus rhythm Pneumonitis COPD exacerbation Severe mitral regurgitation with partial flail of the mitral leaflet Schizophrenia Noncompliance Multiple pulmonary nodule densities Tobacco use and dependence Plan: Start patient on metoprolol tartrate 50 mg twice daily Continue heparin drip until tomorrow and transition to Eliquis Obtain 2-D echocardiogram and Doppler study to assess cardiac structure and function--patient is stating that she will refuse echocardiogram Smoking cessation. Patient will be provided the Teravac quit line information at discharge Further recommendations to follow based upon clinical course Thank you kindly for this consultation. Nurse practitioner note has been reviewed, I agree with documented findings and plan of care. Patient was seen and examined. Past Medical History Past Medical History: No Reported History Additional Past Medical History / Comment(s): polysubstance abuse. pt states she has not used drugs x 3 years. History of Any Multi-Drug Resistant Organisms: None Reported Past Surgical History: No Surgical Hx Reported Additional Past Surgical History / Comment(s): None stated Past Anesthesia/Blood Transfusion Reactions: No Reported Reaction Past Psychological History: No Psychological Hx Reported, Schizophrenia - Past Family History Mother Family Medical History: Myocardial Infarction (VT) Additional Family Medical History / Comment(s): from heart attack Father Additional Family Medical History / Comment(s): from Heart attack Medications and Allergies Home Medications Medication Instructions Recorded Confirmed Type Benztropine Mesylate [Cogentin] 0.5 mg PO BID 30 Days #60 tab 03/16/24 06/06/24 Rx Haloperidol Decanoate [Haldol D] 150 mg IM Q21D #1 each 03/16/24 06/06/24 Rx Allergies Allergy/AdvReac Type Severity Reaction Status Date / Time aspirin AdvReac Nausea & Verified 06/06/24 08:50 Vomiting Physical Exam Vitals: Vital Signs Temp Pulse Resp BP Pulse Ox 06/06/24 09:58 90 18 118/58 97 06/06/24 07:35 98 06/06/24 07:26 96 96 06/06/24 06:41 90 18 119/87 98 06/06/24 03:11 92 18 119/98 94 L 06/06/24 00:02 152 H 20 108/31 95 06/05/24 23:39 144 H 20 139/51 89 L 06/05/24 22:29 123 H 06/05/24 22:18 124 H 06/05/24 20:35 107 H 06/05/24 20:25 106 H 06/05/24 19:53 97.9 F 53 L 18 118/79 97 Intake and Output 06/05/24 06/06/24 06/06/24 22:59 06:59 14:59 Output Total 1000 Balance -1000 Output: Urine 1000 Other: Voiding Method Bedside Commode # Voids 1 # Bowel Movements 1 Weight 54.431 kg 54.431 kg Results 06/05/24 20:24 06/05/24 20:24 Cardiac Enzymes 06/05/24 06/05/24 06/05/24 Range/Units 20:24 20:24 23:44 AST 59 H (14-36) U/L Troponin I 0.049 H* 0.055 H* (0.000-0.034) ng/mL 06/06/24 Range/Units 02:33 AST (14-36) U/L Troponin I 0.053 H* (0.000-0.034) ng/mL Coagulation 06/05/24 06/06/24 Range/Units 20:24 02:33 PT 11.1 (10.0-12.5) sec APTT 23.2 47.4 H (22.0-30.0) sec CBC 06/05/24 Range/Units 20:24 WBC 6.5 (3.8-10.6) k/uL RBC 3.69 L (3.80-5.40) m/uL Hgb 11.3 L (11.4-16.0) gm/dL Hct 34.8 (34.0-46.0) % Plt Count 405 (150-450) k/uL Comprehensive Metabolic Panel 06/05/24 Range/Units 20:24 Sodium 139 (137-145) mmol/L Potassium 4.1 (3.5-5.1) mmol/L Chloride 104 (98-107) mmol/L Carbon Dioxide 30 (22-30) mmol/L BUN 14 (7-17) mg/dL Creatinine 0.77 (0.52-1.04) mg/dL Glucose 92 (74-99) mg/dL Calcium 8.9 (8.4-10.2) mg/dL AST 59 H (14-36) U/L ALT 54 H (4-34) U/L Alkaline Phosphatase 75 (38-126) U/L Total Protein 5.7 L (6.3-8.2) g/dL Albumin 3.2 L (3.5-5.0) g/dL Current Medications Generic Name Dose Route Start Last Admin Trade Name Freq PRN Reason Stop Dose Admin Acetaminophen 650 mg 06/06/24 11:43 Acetaminophen Tab 325 Mg Tab PO Q6HR PRN Fever and/ or Pain Albuterol Sulfate 2.5 mg 06/06/24 08:00 06/06/24 11:18 Albuterol Nebulized 2.5 Mg/3 Ml INHALATION Not Given RT-QID ZANDER Benztropine Mesylate 0.5 mg 06/06/24 10:15 06/06/24 11:11 Benztropine Mesylate 0.5 Mg Tab PO 0.5 mg BID ZANDER Administration Enoxaparin Sodium 40 mg 06/06/24 09:00 06/06/24 08:36 Enoxaparin 40 Mg/0.4 Ml Syringe SQ Not Given DAILY ZANDER Furosemide 40 mg 06/05/24 22:15 06/06/24 10:02 Furosemide 10 Mg/Ml 4 Ml Vial IV 40 mg Q12H ZANDER Administration Haloperidol Decanoate 150 mg 06/06/24 10:15 06/06/24 11:11 Haloperidol Decanoate 100 Mg/Ml 1 Ml Vial IM 150 mg Q21D ZANDER Administration Sodium Chloride 1,000 mls @ 20 mls/hr 06/05/24 22:15 06/05/24 23:38 Saline 0.9% IV 20 mls/hr .Q24H ZANDER Administration Melatonin 5 mg 06/06/24 00:15 Melatonin 5 Mg Tablet PO HS PRN Insomnia Methylprednisolone Sodium Succinate 60 mg 06/06/24 00:00 06/06/24 06:48 Methylprednisolone Sod Succi 125 Mg/2 Ml Vial IV 60 mg Q6HR ZANDER Administration Metoprolol Tartrate 50 mg 06/06/24 09:00 06/06/24 09:59 Metoprolol Tartrate 50 Mg Tab PO Not Given BID ZANDER Miscellaneous Information 1 each 06/05/24 23:16 Pneumonia Protocol Utilized 1 Each Misc PO ONCE PRN Per Protocol Nicotine 1 patch 06/06/24 09:00 06/06/24 08:29 Nicotine 21mg/24hr Patch TRANSDERM Not Given DAILY ZANDER Intake and Output 06/05/24 06/06/24 06/06/24 22:59 06:59 14:59 Output Total 1000 Balance -1000 Output: Urine 1000 Other: Voiding Method Bedside Commode # Voids 1 # Bowel Movements 1 Weight 54.431 kg 54.431 kg Patient Weight 06/07/24 06:59 Weight 54.431 kg 06/05/24 20:24 06/05/24 20:24
[2024-06-06] MEDS: ACETAMINOPHEN TAB 325 MG TAB PO PRN (13:10)
[2024-06-06] MEDS: OLANZapine 10 MG VIAL IM STA (22:59)
[2024-06-07 09:24] VITALS: TEMP 97.8
[2024-06-07] MEDS: APIXABAN 5 MG TAB PO SCH (11:04)
[2024-06-07 11:40] VITALS: BP 107/66; PULSE 78; RESP 18
--- NOTE | 2024-06-07 13:01 | P.DS ---
Providers Date of admission: 06/05/24 22:06 Discharge diagnoses; Acute hypoxic respiratory failure Acute COPD exacerbation Acute exacerbation of CHF with preserved ejection fraction Elevated troponin, likely type II AK in setting of acute CHF and COPD exacerbation A-fib with RVR, new onset Chronic: Schizophrenia Hospital course; 53-year-old with past medical history of CHF (EF of 55-60 from echo in 2021), COPD not on home oxygen, rheumatoid arthritis, polysubstance abuse, schizophrenia, tobacco dependence, and mild intellectual disability who presented to the ER with chief complaint of shortness of breath and nonproductive cough. She states her shortness of breath has been progressive getting worse and that is what prompted her to come to the ER. Patient does also endorses unspecified amount of weight loss, but denies history of malignancy. Patient states she follows with Joann from [facility]. At the time being seen in the emergency department patient reported feeling well with no complaints at that time. Upon speaking with the patient this morning, with outpatient follow-up patient is able to be discharged today. PHYSICAL EXAMINATION: GENERAL: The patient is alert and oriented x3, not in any acute distress. Well developed, well nourished. HEENT: Pupils are round and equally reacting to light. EOMI. No scleral icterus. No conjunctival pallor. Normocephalic, atraumatic. No pharyngeal erythema. No thyromegaly. CARDIOVASCULAR: S1 and S2 present. Harsh murmur noted. PULMONARY: Diminished bilaterally. No intercostal retractions. ABDOMEN: Soft, nontender, nondistended, normoactive bowel sounds. No palpable organomegaly. MUSCULOSKELETAL: No joint swelling or deformity. EXTREMITIES: No cyanosis, clubbing, or pedal edema. NEUROLOGICAL: Gross neurological examination did not reveal any focal deficits. SKIN: No rashes. Dictation was produced using [employer] dictation software. please excuse any grammatical, word or spelling errors. I saw and evaluated the patient during the graham and critical portions of this encounter, and discussed the case in detail with the resident author of this note, I agree with the Assessment and Plan, and my changes, if any, are highlighted in blue. Attending physician: Nadia Solo MD Consults: 06/05/24 22:05 Consult Physician Routine Consulting Provider: Al Henry Consult Reason/Comments: copd Do you want consulting provider notified?: Yes Consult Physician Routine Consulting Provider: Mike Conrad Consult Reason/Comments: nstemi Do you want consulting provider notified?: Yes Primary care physician: [facility] Patient Condition at Discharge: Serious Plan - Discharge Summary New Discharge Prescriptions: New predniSONE [Deltasone] 40 mg PO DAILY 3 Days #3 tab Apixaban [Eliquis] 5 mg PO BID 30 Days #60 tab Metoprolol Tartrate [Lopressor] 50 mg PO BID 30 Days #60 tab Continue Benztropine Mesylate [Cogentin] 0.5 mg PO BID 30 Days #60 tab Haloperidol Decanoate [Haldol D] 150 mg IM Q21D #1 each Discharge Medication List Benztropine Mesylate [Cogentin] 0.5 mg PO BID 30 Days #60 tab 03/16/24 [Rx] Haloperidol Decanoate [Haldol D] 150 mg IM Q21D #1 each 03/16/24 [Rx] Apixaban [Eliquis] 5 mg PO BID 30 Days #60 tab 06/07/24 [Rx] Metoprolol Tartrate [Lopressor] 50 mg PO BID 30 Days #60 tab 06/07/24 [Rx] predniSONE [Deltasone] 40 mg PO DAILY 3 Days #3 tab 06/07/24 [Rx] Follow up Appointment(s)/Referral(s): [facility] [Primary Care Provider] - 1-2 days (CALL AND MAKE JS!) Davis Ayala MD [STAFF PHYSICIAN] - 2 Weeks (CALL AND MAKE JS!) César Apodaca MD [STAFF PHYSICIAN] - 2 Weeks (CALL AND MAKE JS!) Patient Instructions/Handouts: Heart Failure (DC), COPD (Chronic Obstructive Pulmonary Disease) (DC) Activity/Diet/Wound Care/Special Instructions: Please follow up with pulmonology, Dr. Apodaca for further evaluation and work up of the lung nodules noted on CT chest from 06/06/24. Discharge Disposition: HOME SELF-CARE
--- NOTE | 2024-06-07 14:31 | P.PN ---
Subjective Progress Note Date: 06/07/24 Reason for Consult (text): NSTEMI History of present illness: This is a 53-year-old female patient of Dr. Leonor Ayala with past medical history of severe mitral regurgitation with partial flail of the mitral leaflet, schizophrenia, tobacco use and dependence. We have been asked to evaluate the patient for NSTEMI. Most of the information is obtained from the patient's record. Patient has not been cooperative with staff, not willing to provide information. Patient presented to the hospital due to shortness of breath, occasional cough and congestion. Also occasional chest pain. Patient apparently complained of severe weakness and no appetite and not eating or drinking with significant weight loss. Patient was found to be in atrial fibrillation. Patient has been started on a Cardizem drip at 5 mg/h, heparin drip and is also on IV antibiotics and IV steroids. She has converted to sinus rhythm and Cardizem drip has been on hold. Patient is seen today in the emergency center waiting for a bed on the cardiac stepdown unit. Blood pressure 118/50, heart rate 90, pulse ox 97% on room air. -EKG: Atrial fibrillation at 118 bpm, #2 atrial fibrillation 137 bpm -Chest x-ray: Cardiomegaly and patchy bilateral interstitial and airspace opacities which could reflect sequela of pulmonary edema versus multifocal pneumonia. -CTA chest: No evidence of acute pulmonary embolism. Widespread bilateral peripheral nodular opacities new. Appearance is favored infectious with early septal emboli not excluded. -Laboratory studies: WBC 6.5, hemoglobin 11.3. D-dimer 7.8. Electrolytes and renal function are normal. Troponins 0.049, 0.055, 0.053. proBNP 4800. CK1 166. AST 59 and ALT 54. -Home cardiac medications: None 06/07 Patient is seen and examined on the cardiac stepdown unit. Patient is no longer on telemetry she refused to wear the telemetry monitoring. Her heart rate is regular and controlled. She has been maintained on Eliquis as well as beta- pita. Blood pressure 113/76, heart rate 80, pulse ox 92% on room air. Patient refused echocardiogram. Physical examination: Gen: This is a thin cachectic appearing 53-year-old female in no acute respiratory distress VS: reviewed HEENT: Head is atraumatic, normocephalic. Pupils equal, round. Sclerae is anicteric. NECK: Supple. No JVD. LUNGS: Diminished bilaterally. No intercostal retractions. HEART: Regular rate and rhythm. Harsh murmur. ABDOMEN: Soft No tenderness. EXTREMITIES: No pedal edema. No calf tenderness. NEUROLOGICAL: Patient is awake, alert. Assessment: Elevated but flat troponins, acute coronary syndrome ruled out New onset paroxysmal atrial fibrillation with RVR, currently in sinus rhythm Pneumonitis COPD exacerbation Severe mitral regurgitation with partial flail of the mitral leaflet Schizophrenia Noncompliance Multiple pulmonary nodule densities Tobacco use and dependence Plan: Continue patient on metoprolol tartrate 50 mg twice daily and Eliquis Smoking cessation. Patient will be provided the TRiQ quit line information at discharge Patient is cleared for discharge from cardiology May follow-up in the office with Dr. Leonor Ayala in 2 weeks. Nurse practitioner note has been reviewed, I agree with documented findings and plan of care. Patient was seen and examined. Objective - Vital Signs Vital signs: Vital Signs Temp 97.8 F 06/07/24 08:00 Pulse 80 06/07/24 08:00 Resp 20 06/07/24 08:00 BP 113/76 06/07/24 08:00 Pulse Ox 92 L 06/07/24 08:49 FiO2 Intake & Output 06/06/24 06/07/24 06/07/24 18:59 06:59 18:59 Intake Total 240 240 Balance 240 240 Weight 54.431 kg Intake: Oral 240 240 Other: Voiding Method Toilet Toilet Toilet # Voids 1 2 1 # Bowel Movements 1 - Labs CBC & Chem 7: 06/05/24 20:24 06/05/24 20:24
--- NOTE | 2024-06-07 14:33 | P.PN ---
Subjective Progress Note Date: 06/07/24 Patient is a 53-year-old female with past medical history significant for schizophrenia, polysubstance abuse, rheumatoid arthritis, tobacco dependence. Reportedly follows at [facility] clinic. Patient originally presented Emergency Department last night complaining chiefly shortness of breath, cough, and chest pain. While in the ED, patient noted to be in atrial fibrillation with rapid ventricular response, with a rate as high as 150s bpm. She was started on a combination of IV Cardizem and anticoagulated on IV heparin. D-dimer was elevated at 7.8, triggering CT angio protocol. Chest CT angio did not show any acute filling defects consistent with pulmonary emboli. Emphysematous changes. Widespread bilateral peripheral nodular opacities, with the largest measuring up to 2.8 x 1.8 cm. CBC: WBC count 6.5, hemoglobin 11.3, hematocrit 34.8, platelets 405. CMP: Sodium 139, potassium 4.1, chloride 104, serum bicarb 30, BUN 14, creatinine 0.77, glucose 92. LFTs mildly elevated. Troponins elevated at 0.049 and 0.055 respectively. NT proBNP elevated 4800. EKG: Atrial fibrillation with rapid ventricular response, rate 137 bpm, nonspecific ST/T wave changes. Patient started on empiric antibiotics in the ED. She is currently being evaluated in room 24. Patient does awaken and answer questions; however, she is a questionable historian. Primary complaint is shortness of breath and cough, described mostly as nonproductive. Denies sputum production, hemoptysis, chest pain. Denies any fever/chills. Denies any sick contacts. Reports history of rheumatoid arthritis. Denies history of known malignancy. Endorses undetermined amount of weight loss as she recently lost her bridge card. Denies any chest pain, heart palpitations, lightheadedness, syncopal events, orthopnea, lower extremity edema. Denies history of atrial fibrillation. Heart rhythm on bedside monitor appears atrial fibrillation with rapid ventricular response in the 120s beats per minute. Cardizem is infusing at 5 mg/min, as well as, IV heparin protocol. Current vital signs: Afebrile, heart rate 122 bpm, blood pressure 139/51 mmHg, nontachypneic, respiratory rate is 95% on 2 L/min nasal cannula. On 06/07/2024, the patient is being seen for a follow-up. The patient is uncooperative. This is essential related to her underlying mental health as the patient is known to have schizophrenia. Her cardiac rhythm is back into sinus and the patient is off the Cardizem drip. The patient is currently on room air oxygen with a pulse ox of 91 to 92%. As for the previous described pulmonary nodules, those could be potentially malignant. I made recommendations for a follow-up CAT scan of the chest within the next 3 to 4 months and PET scan if needed. The procalcitonin level is low at 0.05. Rheumatoid factor is less than 50. Alcohol level is less than 10. Based on 100 underlying mental health and poor cooperation, I doubt this patient will have the proper follow-up on those pulmonary nodules however I explained to her that this is quite important make the appropriate arrangements for outpatient follow-up. No significant sputum production. No cough sputum production. No chest pain. No other significant events overnight. Objective - Vital Signs Vital signs: Vital Signs Temp 97.8 F 06/07/24 08:00 Pulse 80 06/07/24 08:00 Resp 20 06/07/24 08:00 BP 113/76 06/07/24 08:00 Pulse Ox 92 L 06/07/24 08:49 FiO2 Intake & Output 06/06/24 06/07/24 06/07/24 18:59 06:59 18:59 Intake Total 240 240 Balance 240 240 Weight 54.431 kg Intake: Oral 240 240 Other: Voiding Method Toilet Toilet Toilet # Voids 1 2 1 # Bowel Movements 1 - Exam GENERAL EXAM: Alert, 53-year-old white female, frail, comfortable in no apparent distress. Room air oxygen HEAD: Normocephalic and atraumatic EYES: Normal reaction of pupils, equal size. NOSE: Clear with pink turbinates. THROAT: No erythema or exudates. NECK: No masses, no JVD. CHEST: No chest wall deformity. LUNGS: No conversational dyspnea or accessory muscle use.. Diminished breath sounds otherwise clear CVS: S1 and S2 normal with grade 3 systolic murmur, irregular rhythm. No other extra heart sounds ABDOMEN: No hepatosplenomegaly, active bowel sounds, no guarding or rigidity. SPINE: No scoliosis or deformity SKIN: No rashes CENTRAL NERVOUS SYSTEM: No focal deficits, tone is normal in all 4 extremities. EXTREMITIES: There is no peripheral edema, clubbing, or cyanosis. No swan-neck deformity, ulnar deviation, or cutaneous nodules. Peripheral pulses are intact. - Labs CBC & Chem 7: 06/05/24 20:24 06/05/24 20:24 Assessment and Plan Assessment: Acute COPD exacerbation, improved Atrial fibrillation with rapid ventricular response, back into normal sinus rhythm Multiple pulmonary nodular densities, Chest CT angio did not show any acute filling defects consistent with pulmonary emboli. Emphysematous changes noted. Widespread bilateral peripheral nodular opacities, with the largest measuring up to 2.8 x 1.8 cm. No central cavitations. No lymphadenopathy. Consider in fectious process versus inflammatory or rheumatoid lung manifestations. Malignancy is within the differential but felt to be less likely at this time. Acute hypoxemic respiratory failure, secondary to a combination of above Possible acute CHF exacerbation, unknown ejection fraction Elevated troponins, rule out non-ST elevation MO History of rheumatoid arthritis, not on any DMARDs or Biologics Chronic ongoing tobacco dependence, with over [id number] history, currently smokes 1 to 2 packs/day History of polysubstance abuse, however, denies any current recreational drug use Schizophrenia Plan: Oxygenation is stable and the patient is feeling well for now and the patient is being considered for discharge prednisone taper at the time of discharge Duoneb Smoking cessation counseling performed greater than 3 minutes Nicotine patch offered Cardiology is consulted. Currently in NSR Metoprolol and anticoagulation with Eliquis As far as these pulmonary abnormalities, this could be infectious, inflammatory ministration with rheumatoid arthritis. Malignancy cannot be completely ruled out. Obviously outpatient follow-up will be needed. PET scan at a later stage and biopsy if needed. Will follow-up with patient on outpatient basis.
[2024-06-08] MEDS ORDERED: predniSONE 20 MG TAB PO SCH (09:00)
== END 2024-06-07 15:12 | disposition home or self-care (01) | DRG 194 ==
LOC: EC 19:50 → 3SCARD 22:06
PROVIDERS: ADMIT Internal Medicine; ATTEND Internal Medicine
DX: I50.33 Acute on chronic diastolic (congestive) heart failure (principal); J96.01 Acute respiratory failure with hypoxia; J44.1 Chronic obstructive pulmonary disease with (acute) exacerbation; I21.A1 Myocardial infarction type 2; F20.9 Schizophrenia, unspecified; M06.9 Rheumatoid arthritis, unspecified; F19.11 Other psychoactive substance abuse, in remission; I48.0 Paroxysmal atrial fibrillation; I34.0 Nonrheumatic mitral (valve) insufficiency; F17.210 Nicotine dependence, cigarettes, uncomplicated; F70 Mild intellectual disabilities; R54 Age-related physical debility; R91.8 Other nonspecific abnormal finding of lung field; Z91.199 Patient's noncompliance with other medical treatment and regimen due to unspecified reason; Z82.49 Family history of ischemic heart disease and other diseases of the circulatory system; Z79.899 Other long term (current) drug therapy
CPT/HCPCS: 36415; 71045; 71046; 71275; 80053; 80320; 82550; 83690; 83735; 83880; 84145; 84484; 85025; 85379; 85610; 85730; 86431; 87040; 93005; 94640; 94760; 96361; 96365; 96366; 96367; 96368; 96372; 96375; 96376; 99291

== ENCOUNTER 2024-08-11 00:53 | Inpatient (IN) | payer OTHER ==
--- NOTE | 2024-08-11 01:31 | ED ---
General Adult HPI - General Chief complaint: Chest Pain Stated complaint: MELVINA Time Seen by Provider: 08/11/24 01:16 Source: EMS Mode of arrival: EMS Limitations: no limitations - History of Present Illness Initial comments: Patient is a 53-year-old female Past medical history of CHF, COPD, atrial fibrillation, polysubstance abuse, schizophrenia, mild intellectual disability, DVT presenting today for shortness of breath. Patient states that she is felt short of breath for 3 days. She was told by EMS personnel to call them back if her swelling in her legs worsen. She states tonight she called 911 because of the swelling in her legs and stomach. Endorses abdominal bloating, bilateral lower extremity swelling worse in the left than the right. She states to me that the left leg is not usually more swollen than the right leg. She denies use of blood thinners. States she is currently on Lasix. She denies any cough, hemoptysis sputum production, fevers or chills, endorses palpitations but otherwise denies chest pain. Denies nausea vomiting, diarrhea, melena, hematochezia constipation. She does currently smoke cigarettes. She was given a nebulizer treatment by EMS - Related Data Home Medications Medication Instructions Recorded Confirmed Metoprolol Succinate (ER) [Toprol 37.5 mg PO BID 08/11/24 08/11/24 Xl] Previous Rx's Medication Instructions Recorded Benztropine Mesylate [Cogentin] 0.5 mg PO BID 30 Days #60 tab 03/16/24 Haloperidol Decanoate [Haldol D] 150 mg IM Q21D #1 each 03/16/24 Allergies Allergy/AdvReac Type Severity Reaction Status Date / Time aspirin AdvReac Nausea & Verified 08/11/24 07:46 Vomiting Review of Systems ROS Statement: Those systems with pertinent positive or pertinent negative responses have been documented in the HPI. ROS Other: All systems not noted in ROS Statement are negative. Past Medical History Past Medical History: No Reported History Additional Past Medical History / Comment(s): polysubstance abuse. pt states she has not used drugs x 3 years. History of Any Multi-Drug Resistant Organisms: None Reported Past Surgical History: No Surgical Hx Reported Additional Past Surgical History / Comment(s): None stated Past Anesthesia/Blood Transfusion Reactions: No Reported Reaction Past Psychological History: No Psychological Hx Reported, Schizophrenia Smoking Status: Current every day smoker - Past Family History Mother Family Medical History: Myocardial Infarction ([place]) Additional Family Medical History / Comment(s): from heart attack Father Additional Family Medical History / Comment(s): from Heart attack General Exam - General Exam Comments Initial Comments: PE: CONSTITUTIONAL: No apparent distress, well appearing SKIN: Warm, dry, no jaundice, hives or petechiae EYES: Pupils are equally round, extraocular movements intact without nystagmus, clear conjunctiva, non-icteric sclera HENT: Normocephalic, atraumatic, moist mucus membranes, oropharynx clear without exudates,edentulous NECK: , Full range of motion, normal appearance PULMONARY: Ronchi in bilatearal LL ferris without wheezes, no stridor, normal excursion, no accessory muscle use and no stridor CARDIOVASCULAR: Tachycardia, irregularly irregular rate and rhythm normal S1 and S2. No appreciated murmurs, rubs or gallops. Strong radial pulses with intact distal perfusion. 2-3+ bilateral lower extremity pitting edema worse in the left than the right GASTROINTESTINAL: Soft, active bowel sounds throughout, non-tender, mildly distended with edema, no palpable masses, no rebound or guarding. No hepatosplenomegaly MUSCULOSKELETAL: Extremities have no gross deformity NEUROLOGIC:_a/o x 3, GCS 15, normal mentation and speech. Moves all extremities x 4 without motor or sensory deficit PSYCHIATRIC:_normal mood and affect, thought process is clear and linear Limitations: no limitations Course Vital Signs 08/11/24 08/11/24 08/11/24 01:02 01:14 02:03 Temperature 98.3 F Pulse Rate 122 H 117 H Pulse Rate [ 126 H Bilateral Supine Radial] Respiratory 20 20 Rate Blood Pressure 118/89 110/89 O2 Sat by Pulse 97 94 L Oximetry 08/11/24 08/11/24 08/11/24 03:46 05:00 06:00 Temperature 98.5 F Pulse Rate 100 99 102 H Pulse Rate [ Bilateral Supine Radial] Respiratory 18 20 18 Rate Blood Pressure 94/76 110/74 110/96 O2 Sat by Pulse 94 L 95 95 Oximetry 08/11/24 08/11/24 08/11/24 08:17 08:20 08:29 Temperature 97.7 F Pulse Rate 84 Pulse Rate [ Bilateral Supine Radial] Respiratory 22 Rate Blood Pressure 111/77 O2 Sat by Pulse 88 L 88 L 91 L Oximetry 08/11/24 08/11/24 09:43 10:58 Temperature Pulse Rate 91 83 Pulse Rate [ Bilateral Supine Radial] Respiratory 20 22 Rate Blood Pressure 104/71 94/72 O2 Sat by Pulse 90 L 90 L Oximetry EKG Findings - EKG Comments: EKG Findings:: A-fib with RVR, rate 124 bpm QT/QTc within normal limits, normal axis, PVC present, no clear ST elevations or depressions Medical Decision Making - Medical Decision Making Was pt. sent in by a medical professional or institution (, PA, POWER AND RECOVERY SHIFT ENGINEER, urgent care, hospital, or senior care...) When possible be specific @ -No Did you speak to anyone other than the patient for history (EMS, parent, family, police, friend...)? What history was obtained from this source @ -No Did you review nursing and triage notes (agree or disagree)? Why? @ -I reviewed amd agree with nursing and triage notes Were old charts reviewed (outside hosp., previous admission, EMS record, old EKG, old radiological studies, urgent care reports/EKG's, senior care records)? Report findings @ -Medical records reviewed-reviewed recent visit from06/06/2024 when patient had presented for shortness of breath, was in new onset A-fib with RVR, CTA done at that time showed no PE though did show bilateral peripheral nodular opacities, appears to have been discharged home on Eliquis and metoprolol, however patient states she does not take blood thinners, additionally patient has a prior ultrasound of lower extremities done that showed an old left lower extremity DVT the patient denies that her left lower extremity is usually more swollen than the right Differential Diagnosis (chest pain, altered mental status, abdominal pain women, abdominal pain men, vaginal bleeding, weakness, fever, dyspnea, syncope, headache, dizziness, GI bleed, back pain, seizure, CVA, palpatations, mental health, musculoskeletal)? Differential Dyspnea: Coronary syndrome, arrhythmia, tamponade, asthma, COPD, pulmonary embolism, pneumonia, pneumothorax, pulmonary effusion, anaphylaxis, diabetic ketoacidosis, flailed chest, pulmonary contusion, diaphragmatic rupture, anemia, neuromuscular, this is not meant to be an all-inclusive list. EKG interpreted by me (3pts min.). @ -As above X-rays interpreted by me (1pt min.). @ I personally reviewed CXR, notable for severe cardiomegaly, bilateral pulmonary vascular congestion and pulmonary edema CT interpreted by me (1pt min.). @ -None done What testing was considered but not performed or refused? (CT, X-rays, U/S, labs)? Why? @ -None What meds were considered but not given or refused? Why? @ -None Did you discuss the management of the patient with other professionals (professionals i.e. , PA, POWER AND RECOVERY SHIFT ENGINEER, lab, RT, psych nurse, protective services social worker, certified hand therapist, teacher, trust officer, major case detective)? Give summary @ -No Was smoking cessation discussed for >3mins.? @ -No Was critical care preformed (if so, how long)? @Yes 35 minutes Were there social determinants of health that impacted care today? How? (Homelessness, low income, unemployed, alcoholism, drug addiction, transportation, low edu. Level, literacy, decrease access to med. care, shelter, rehab)? Intellectual disability, low income Was there de-escalation of care discussed even if they declined (Discuss DNR or withdrawal of care, Hospice)? @ -No What co-morbidities impacted this encounter? (DM, HTN, Smoking, COPD, CAD, Cancer, CVA, ARF, Chemo, Hep., AIDS, mental health diagnosis, sleep apnea, morbid obesity)? @CHF, Atrial fibrillation, CHF, COPD Was patient admitted / discharged? Hospital course, mention meds given and rou te, prescriptions, significant lab abnormalities, going to OR and other pertinent info. @Admission- Patient is a 53-year-old female approximately history DVT, A-fib, CHF, COPD presenting today for lower extremity swelling extending up to her abdomen and shortness of breath. In A-fib with RVR on arrival. No hypoxemia. Blood pressure stable.3+ lower extremity edema extending up to the abdomen pre valent on physical exam. Patient awake and alert in no acute distress. Rhonchi in bilateral lower lung ferris without increased work of breathing. Plan for Cardizem bolus 0.25 mg/kg with Cardizem drip, CXR, US LE, comprehensive labs. Chart review shows patient is prescribed eliquis. Patient is unsure if she is taking this. 15.5 mg Cardizem bolus given, started on cardizem drip. Rate now between 101- 110. Will continue to monitor. Anticipate admission. Troponin elevated 0.055, suspect 2/2 type II [place] however given it is unclear if patient is taking her anticoagulant at home, elevated troponin, will start on heparin gtt. BNP 8520, potassium 4.3. Will order 80 mg IV lasix and admit. U pdated pt to plan of care. Rate now between 95-110, cardizem gtt at 10, will be increased to 15.Of note, visual aid expert is not available overnight so US will be completed in the morning. Case discussed with Gudelia Espino, kindly accepts patient for admission. Undiagnosed new problem with uncertain prognosis? @ -No Drug Therapy requiring intensive monitoring for toxicity (Heparin, Nitro, Insuli n, Cardizem)? @ -No Were any procedures done? @ -No Diagnosis/symptom? Acute CHF exacerbation, atrial fibrillation with RVR Acute, or Chronic, or Acute on Chronic? Acute Uncomplicated (without systemic symptoms) or Complicated (systemic symptoms)? Complicated Side effects of treatment? @ -No Exacerbation, Progression, or Severe Exacerbation? exacerbation Poses a threat to life or bodily function? How? (Chest pain, [place], [place], pneumonia, PE, COPD, DKA, ARF, appy, cholecystitis, CVA, Diverticulitis, Homicidal, Suicidal, threat to staff... and all critical care pts) @ Yes - Lab Data Result diagrams: 08/12/24 06:28 08/11/24 07:51 Lab Results 08/11/24 08/11/24 08/11/24 Range/Units 01:17 01:17 01:17 WBC 7.3 (3.8-10.6) k/uL RBC 4.04 (3.80-5.40) m/uL Hgb 11.3 L (11.4-16.0) gm/dL Hct 36.6 (34.0-46.0) % MCV 90.6 (80.0-100.0) fL MCH 28.0 (25.0-35.0) pg MCHC 30.9 L (31.0-37.0) g/dL RDW 16.7 H (11.5-15.5) % Plt Count 264 (150-450) k/uL MPV 7.5 Neutrophils % 74 % Lymphocytes % 16 % Monocytes % 7 % Eosinophils % 1 % Basophils % 1 % Neutrophils # 5.4 (1.3-7.7) k/uL Lymphocytes # 1.2 (1.0-4.8) k/uL Monocytes # 0.5 (0-1.0) k/uL Eosinophils # 0.0 (0-0.7) k/uL Basophils # 0.0 (0-0.2) k/uL Hypochromasia Moderate Poikilocytosis Slight Anisocytosis Slight PT 11.6 (10.0-12.5) sec INR 1.1 (<1.2) APTT 21.2 L (22.0-30.0) sec Sodium 133 L (137-145) mmol/L Potassium 4.3 (3.5-5.1) mmol/L Chloride 100 (98-107) mmol/L Carbon Dioxide 28 (22-30) mmol/L Anion Gap 5 mmol/L BUN 19 H (7-17) mg/dL Creatinine 0.87 (0.52-1.04) mg/dL Est GFR (CKD-EPI)AfAm 87 (>60 ml/min/1.73 sqM) Est GFR (CKD-EPI)NonAf 75 (>60 ml/min/1.73 sqM) Glucose 118 H (74-99) mg/dL Calcium 8.2 L (8.4-10.2) mg/dL Magnesium 1.8 (1.6-2.3) mg/dL Total Bilirubin 0.5 (0.2-1.3) mg/dL AST 84 H (14-36) U/L ALT 88 H (4-34) U/L Alkaline Phosphatase 96 (38-126) U/L Troponin I (0.000-0.034) ng/mL NT-Pro-B Natriuret Pep 8520 pg/mL Total Protein 5.1 L (6.3-8.2) g/dL Albumin 2.8 L (3.5-5.0) g/dL Influenza Type A (PCR) (Not Detectd) Influenza Type B (PCR) (Not Detectd) RSV (PCR) (Not Detectd) SARS-CoV-2 (PCR) (Not Detectd) 08/11/24 08/11/24 Range/Units 01:17 01:39 WBC (3.8-10.6) k/uL RBC (3.80-5.40) m/uL Hgb (11.4-16.0) gm/dL Hct (34.0-46.0) % MCV (80.0-100.0) fL MCH (25.0-35.0) pg MCHC (31.0-37.0) g/dL RDW (11.5-15.5) % Plt Count (150-450) k/uL MPV Neutrophils % % Lymphocytes % % Monocytes % % Eosinophils % % Basophils % % Neutrophils # (1.3-7.7) k/uL Lymphocytes # (1.0-4.8) k/uL Monocytes # (0-1.0) k/uL Eosinophils # (0-0.7) k/uL Basophils # (0-0.2) k/uL Hypochromasia Poikilocytosis Anisocytosis PT (10.0-12.5) sec INR (<1.2) APTT (22.0-30.0) sec Sodium (137-145) mmol/L Potassium (3.5-5.1) mmol/L Chloride (98-107) mmol/L Carbon Dioxide (22-30) mmol/L Anion Gap mmol/L BUN (7-17) mg/dL Creatinine (0.52-1.04) mg/dL Est GFR (CKD-EPI)AfAm (>60 ml/min/1.73 sqM) Est GFR (CKD-EPI)NonAf (>60 ml/min/1.73 sqM) Glucose (74-99) mg/dL Calcium (8.4-10.2) mg/dL Magnesium (1.6-2.3) mg/dL Total Bilirubin (0.2-1.3) mg/dL AST (14-36) U/L ALT (4-34) U/L Alkaline Phosphatase (38-126) U/L Troponin I 0.055 H* (0.000-0.034) ng/mL NT-Pro-B Natriuret Pep pg/mL Total Protein (6.3-8.2) g/dL Albumin (3.5-5.0) g/dL Influenza Type A (PCR) Not Detected (Not Detectd) Influenza Type B (PCR) Not Detected (Not Detectd) RSV (PCR) Not Detected (Not Detectd) SARS-CoV-2 (PCR) Not Detected (Not Detectd) Disposition Clinical Impression: Atrial fibrillation with rapid ventricular response, Acute exacerbation of CHF (congestive heart failure) Disposition: ADMITTED IP TO THIS HOSP Condition: Stable
[2024-08-11] MEDS: DILTIAZEM 125 MG in SODIUM CHLORIDE 0.9% 100 ML IV SCH ×2 (01:33→01:42)
[2024-08-11] MEDS: DILTIAZEM DRIP BOLUS FROM BAG 1 MG SOLN IV ONE (01:39)
[2024-08-11 01:50] LABS: INR 1.1 (<1.2); Prothrombin Time 11.6 sec (10.0-12.5)
[2024-08-11 02:01] LABS: ALT 88 U/L (4-34); AST 84 U/L (14-36); African American GFR (CKD) 87 (>60 ml/min/1.73 sqM); Albumin 2.8 g/dL (3.5-5.0); Alkaline Phosphatase 96 U/L (38-126); Anion Gap 5 mmol/L; Blood Urea Nitrogen 19 mg/dL (7-17); Calcium 8.2 mg/dL (8.4-10.2); Carbon Dioxide 28 mmol/L (22-30); Chloride 100 mmol/L (98-107); Glucose 118 mg/dL (74-99); Magnesium 1.8 mg/dL (1.6-2.3); Non-African American GFR(CKD) 75 (>60 ml/min/1.73 sqM); Potassium 4.3 mmol/L (3.5-5.1); Sodium 133 mmol/L (137-145); Total Bilirubin 0.5 mg/dL (0.2-1.3); Total Protein 5.1 g/dL (6.3-8.2)
[2024-08-11 02:10] LABS: NT-Pro-B-Type Natriuretic Pept 8520 pg/mL
[2024-08-11 02:18] LABS: Anisocytosis Slight; Basophils % (A) 1 %; Eosinophils % (A) 1 %; HCT 36.6 % (34.0-46.0); HGB 11.3 gm/dL (11.4-16.0); Hypochromasia Moderate; Lymphocytes # (A) 1.2 k/uL (1.0-4.8); Lymphocytes % (A) 16 %; MCHC 30.9 g/dL (31.0-37.0); MCV 90.6 fL (80.0-100.0); Mean Platelet Volume 7.5; Monocytes # (A) 0.5 k/uL (0-1.0); Monocytes % (A) 7 %; Neutrophils # (A) 5.4 k/uL (1.3-7.7); Neutrophils % (A) 74 %; Platelet Count 264 k/uL (150-450); Poikilocytosis Slight; RBC 4.04 m/uL (3.80-5.40); RDW 16.7 % (11.5-15.5); WBC 7.3 k/uL (3.8-10.6)
[2024-08-11 02:24] LABS: Partial Thromboplastin Time 21.2 sec (22.0-30.0)
[2024-08-11 02:26] LABS: Influenza A Not Detected (Not Detectd); Influenza B Not Detected (Not Detectd); RSV Not Detected (Not Detectd)
[2024-08-11] MEDS: HEPARIN SODIUM 1,000 UN/ML (10ML VL) IV ONE (02:36)
[2024-08-11] MEDS: HEPARIN SOD,PORK IN 0.45% NACL 25,000 UNIT in 0.45% NACL 1 250ML.BAG IV SCH ×2 (02:39→09:45)
[2024-08-11] MEDS: FUROSEMIDE 10 MG/ML 10 ML VIAL IV STA (02:42)
[2024-08-11] MEDS ORDERED: NALOXONE 0.4 MG/ML 1 ML VIAL IV PRN (02:49)
[2024-08-11] MEDS ORDERED: CALCIUM CARBONATE 500 MG CHEWABLE PO PRN (02:49)
[2024-08-11] MEDS ORDERED: ONDANSETRON 4 MG/2 ML VIAL IVP PRN (02:49)
[2024-08-11] MEDS ORDERED: MAG HYDROX/AL HYDROX/SIMETH 30 ML CUP PO PRN (02:49)
--- NOTE | 2024-08-11 03:15 | XR ---
EXAM: XR Chest, 2 Views CLINICAL HISTORY: shortness of breath, swelling hx TECHNIQUE: Frontal and lateral views of the chest. COMPARISON: 06/05/24 FINDINGS: Lungs: Small amount of airspace opacities throughout both lungs with lower lung predominance. Pleural space: Small bilateral pleural effusions. Heart: Moderate-severe cardiomegaly. Mediastinum: Unremarkable. Normal mediastinal contour. Bones/joints: Osteopenia. Moderate osteoarthritic changes of right shoulder. IMPRESSION: 1. Mild CHF. 2. Small bilateral pleural effusions.
[2024-08-11] MEDS ORDERED: IPRATROPIUM-ALBUTEROL 3 ML NEB INHALATION PRN (03:21)
--- NOTE | 2024-08-11 03:51 | P.HPIM ---
History of Present Illness H&P Date: 08/11/24 Chief Complaint: SOB Patient is a 53-year-old female with HFpEF (EF 55-60%), COPD not on home oxygen, paroxysmal atrial fibrillation anticoagulated on Eliquis, history of DVT, schizophrenia, mild intellectual disability, presenting with shortness of breath. Patient states she felt short of breath and noticed increased swelling in her lower extremities and stomach for the past 3 days. Patient states she was told to call EMS if her swelling started to become worse.. Patient states swelling is worse on the left leg. She was given nebulizer treatment by EMS. Patient states she has been compliant with all her medication. Patient endorses heart palpitations. Patient denies any fever, chills, cough, sputum production, chest pain, nausea, vomiting, diarrhea, urinary symptoms. EKG independent interpreted displaying atrial fibrillation with RVR, rate 124 bpm, QTc 366 ms CXR independently interpreted display pulmonary vascular congestion LE venous Doppler pending T98.3 F, FL 122, RR 20, BP 118/89, O2 saturation 97% on room air Review of systems: Pertinent positives and negatives as discussed in HPI, a complete review of systems was performed and all other systems are negative. Physical examination: Vital signs reviewed General: non toxic, no distress, appears at stated age, normal weight Derm: no unusual rashes/lesions, warm Head: atraumatic, normocephalic, symmetric Eyes: EOMI, anicteric sclera Mouth: no lip lesion, mucus membranes moist Cardiovascular: S1S2 reg, no murmur, 2+ pitting edema left lower extremity Lungs: Bilateral rhonchi, no rales, no accessory muscle use Abdominal: soft, nontender to palpation, no guarding Ext: muscle strength 5 out of 5 in all 4 extremities grossly, no gross muscle atrophy Neuro: CN II-XI grossly intact, no gross focal neuro deficits Psych: Alert, oriented to person, place, and time Assessment/Plan: Patient is a 53-year-old female with HFpEF (EF 55-60%), COPD not on home oxygen, paroxysmal atrial fibrillation anticoagulated on Eliquis, schizophrenia presenting with shortness of breath. ED documentation reviewed. Discussed with the patient. The patient is admitted for anticipated less than 2 midnight stay for evaluation of acute COPD exacerbation and acute heart failure exacerbation. #. Acute HFpEF exacerbation #. Atrial fibrillation with RVR anticoagulated with Eliquis #. Elevated troponin Troponin 0.050, continue to trend to rule out ACS proBNP 8520 Currently on Cardizem drip 5 Mg/HR Currently on heparin IV drip, monitor aPTT, hold Eliquis S/p Lasix 80 mg IV once by ED Continue with Lasix 40 mg IV q12hr Lopressor 50 mg PO BID Strict intake output, daily weights Echocardiogram ordered Cardiac monitoring Cardiology consulted #. History of DVT on Eliquis Endorses bilateral LE swelling, left leg > right leg Venous Doppler ultrasound ordered #. COPD (no home O2), not in acute exacerbation Patient currently breathing on room air, denies any cough or sputum production Bilateral rhonchi noted, no wheezing DuoNebs [id number] Monitor oxygen level, maintain between 88-92% #. Hypocalcemia Calcium 8.2, corrected calcium 9.2 Tums 1000 mg p.o. every 4 hours as needed #. Normocytic anemia No acute bleeding Continue to monitor CBC #. Transaminitis AST 84, ALT 88 Patient denies any abdominal pain Likely secondary to congestive hepatopathy Follow-up CMP DVT prophylaxis: IV heparin drip CODE STATUS: Full code Anticipated discharge place: Pending clinical course Landen Sun MD PGY-1 IM Dictation was produced using [employer] dictation software. please excuse any grammatical, word or spelling errors. I have seen and evaluated the patient today. I Discussed the case with the resident and agree with the resident's findings I edited the assessment and plan as necessary as documented in the resident's note. Past Medical History Past Medical History: No Reported History Additional Past Medical History / Comment(s): polysubstance abuse. pt states she has not used drugs x 3 years. History of Any Multi-Drug Resistant Organisms: None Reported Past Surgical History: No Surgical Hx Reported Additional Past Surgical History / Comment(s): None stated Past Anesthesia/Blood Transfusion Reactions: No Reported Reaction Past Psychological History: No Psychological Hx Reported, Schizophrenia Smoking Status: Current every day smoker - Past Family History Mother Family Medical History: Myocardial Infarction ([place]) Additional Family Medical History / Comment(s): from heart attack Father Additional Family Medical History / Comment(s): from Heart attack Medications and Allergies Home Medications Medication Instructions Recorded Confirmed Type Benztropine Mesylate [Cogentin] 0.5 mg PO BID 30 Days #60 tab 11/06/24 04/03/25 Rx Haloperidol Decanoate [Haldol D] 150 mg IM Q21D #1 each 03/16/24 08/11/24 Rx Apixaban [Eliquis] 5 mg PO BID 30 Days #60 tab 06/07/24 08/11/24 Rx Metoprolol Succinate (ER) [Toprol 37.5 mg PO BID 08/11/24 08/11/24 History Xl] Allergies Allergy/AdvReac Type Severity Reaction Status Date / Time aspirin AdvReac Nausea & Verified 08/11/24 07:46 Vomiting Physical Exam Vitals: Vital Signs Temp Pulse Pulse Resp BP Pulse Ox 08/11/24 02:03 117 H 20 110/89 94 L 08/11/24 01:14 126 H 08/11/24 01:02 98.3 F 122 H 20 118/89 97 Intake and Output 08/10/24 08/10/24 08/11/24 14:59 22:59 06:59 Intake Total 1.833 Balance 1.833 Intake: Intake, IV Titration 1.833 Amount Diltiazem 125 mg In 1.833 Sodium Chloride 0.9% 100 ml @ 5 MG/HR 5 mls/hr IV .Q24H [facility] Rx#:[id number] Other: Weight 53.977 kg Results CBC & Chem 7: 08/11/24 01:17 08/11/24 07:51 Labs: Abnormal Lab Results - Last 24 Hours (Table) 08/11/24 08/11/24 08/11/24 Range/Units 01:17 01:17 01:17 Hgb 11.3 L (11.4-16.0) gm/dL MCHC 30.9 L (31.0-37.0) g/dL RDW 16.7 H (11.5-15.5) % APTT 21.2 L (22.0-30.0) sec Sodium 133 L (137-145) mmol/L BUN 19 H (7-17) mg/dL Glucose 118 H (74-99) mg/dL Calcium 8.2 L (8.4-10.2) mg/dL AST 84 H (14-36) U/L ALT 88 H (4-34) U/L Troponin I (0.000-0.034) ng/mL Total Protein 5.1 L (6.3-8.2) g/dL Albumin 2.8 L (3.5-5.0) g/dL 08/11/24 Range/Units 01:17 Hgb (11.4-16.0) gm/dL MCHC (31.0-37.0) g/dL RDW (11.5-15.5) % APTT (22.0-30.0) sec Sodium (137-145) mmol/L BUN (7-17) mg/dL Glucose (74-99) mg/dL Calcium (8.4-10.2) mg/dL AST (14-36) U/L ALT (4-34) U/L Troponin I 0.055 H* (0.000-0.034) ng/mL Total Protein (6.3-8.2) g/dL Albumin (3.5-5.0) g/dL
--- NOTE | 2024-08-11 08:00 | US ---
EXAMINATION TYPE: US venous doppler duplex LE LT DATE OF EXAM: 08/11/2024 7:16 AM COMPARISON: NONE CLINICAL INDICATION: Female, 53 years old with history of bilat LE swelling, L>R; left leg swelling o n uncooperative patient, TECHNIQUE: The lower extremity deep venous system is examined utilizing real time linear array sonog melissa with graded compression, color doppler sonography, and spectral doppler. SIDE PERFORMED: Left FINDINGS: VESSELS IMAGED: Common Femoral Vein Deep Femoral Vein Greater Saphenous Vein * Femoral Vein Popliteal Vein Small Saphenous Vein * Proximal Calf Veins (* superficial vessels) Classifying Machine Operator notes:Patient extremely uncooperative, kicking, moving, swearing at tech, could not do complete compressions behind knee due to her agitation. Left Leg: Internal echoes seen at lower femoral vein was compressible with flow around, unsure if ch ronic verus other etiology, also distal popliteal/upper calf veins had internal echoes that did not c ompress, possible acute DVT versus other etiology IMPRESSION: Severely limited exam as above. There appears to be DVT at the lower femoral vein and also at the low er popliteal and upper calf veins. Age difficult to determine due to exam limitations. Further clinic al correlation recommended. [facility], , 08/11/2024 7:57 AM
[2024-08-11] MEDS: FUROSEMIDE 10 MG/ML 4 ML VIAL IV SCH (08:06)
[2024-08-11] MEDS: FAMOTIDINE 20 MG TAB PO SCH (08:23)
[2024-08-11] MEDS: METOPROLOL SUCCINATE (ER) 25 MG TAB.ER.24H PO SCH (08:23)
[2024-08-11] MEDS: BENZTROPINE MESYLATE 0.5 MG TAB PO SCH (08:24)
[2024-08-11] MEDS ORDERED: METOPROLOL TARTRATE 50 MG TAB PO SCH (09:00)
[2024-08-11] MEDS ORDERED: APIXABAN 5 MG TAB PO SCH (09:00)
[2024-08-11 09:03] LABS: ALT 82 U/L (4-34); AST 71 U/L (14-36); African American GFR (CKD) >90 (>60 ml/min/1.73 sqM); Albumin 2.7 g/dL (3.5-5.0); Alkaline Phosphatase 96 U/L (38-126); Anion Gap 4 mmol/L; Blood Urea Nitrogen 19 mg/dL (7-17); Calcium 7.9 mg/dL (8.4-10.2); Carbon Dioxide 31 mmol/L (22-30); Chloride 99 mmol/L (98-107); Glucose 114 mg/dL (74-99); Non-African American GFR(CKD) 80 (>60 ml/min/1.73 sqM); Potassium 3.5 mmol/L (3.5-5.1); Sodium 134 mmol/L (137-145); Total Bilirubin 0.5 mg/dL (0.2-1.3); Total Protein 4.9 g/dL (6.3-8.2)
[2024-08-11] MEDS: METOPROLOL SUCCINATE (ER) 50 MG TAB.ER.24H PO SCH (09:32)
[2024-08-11] MEDS: METOPROLOL SUCCINATE (ER) 25 MG TAB.ER.24H PO STA (09:44)
[2024-08-11] MEDS: traMADol 50 MG TAB PO PRN (09:44)
[2024-08-11] MEDS: HEPARIN SODIUM 1,000 UN/ML (10ML VL) IV PRN (09:49)
--- NOTE | 2024-08-11 11:05 | P.CRDCN ---
History of Present Illness History of present illness: HISTORY OF PRESENT ILLNESS: This is a 53-year-old female with a past medical history significant for paroxysmal atrial fibrillation with, COPD, and schizophrenia. Patient used to follow in the office with Dr. Ayala but has not been seen since April 2022. We have been asked to see the patient in consultation for atrial fibrillation. Patient examined at the bedside in the ER. The patient is a poor historian. Patient states that she came to the ER because she had an allergic reaction to "a pink pill", which she believes is her Eliquis. Patient was found to be in A- fib with RVR. She was started on IV heparin and IV Cardizem. She remains in atrial fibrillation with heart rate in the 90s. DIAGNOSTICS: - EKG reveals A-fib with RVR. - Chest xray mild CHF. Small bilateral pleural effusions. - Laboratory data: WBC 7.3. Hemoglobin 11.3. Platelet count 264. Sodium 133. Potassium 4.3. BUN 19. Creatinine 0.87. AST 84. ALT 88. Troponin 0.055. 0.056. proBNP 8520. - Current home cardiac medications include Eliquis 5 mg twice a day and metoprolol succinate 37.5 mg twice a day. - Most recent echocardiogram obtained in March 2022 reveals ejection fraction 55%, moderate LVH, severe mitral regurgitation, moderate tricuspid regurgitation. - Cardiac catheterization history: unknown REVIEW OF SYSTEMS: At the time of my exam: CONSTITUTIONAL: Denies fever or chills. HEENT: Denies blurred vision, vision changes, or eye pain. Denies hemoptysis CARDIOVASCULAR: Denies chest pain. Denies orthopnea. Denies PND. Denies palpitations RESPIRATORY: Denies shortness of breath. GASTROINTESTINAL: Denies abdominal pain. Denies nausea or vomiting. HEMATOLOGIC: Denies bleeding disorders. GENITOURINARY: Denies any blood in urine. SKIN: Denies pruitis. Denies rash. PHYSICAL EXAM: VITAL SIGNS: Reviewed. GENERAL: Well-developed in no acute distress. HEENT: Head is normocephalic. Pupils are equal, round. Sclerae anicteric. Mucous membranes of the mouth are moist. Neck supple. No JVD or thyromegaly LUNGS: Respirations even and unlabored. Lungs essentially clear to auscultation bilaterally. HEART: Regular rate and rhythm. S1 and S2 heard. ABDOMEN: Soft. Nondistended. Nontender. EXTREMITIES: Normal range of motion. No clubbing or cyanosis. Peripheral pulses intact. No lower extremity edema NEUROLOGIC: Awake and alert. Oriented x 3. ASSESSMENT: Paroxysmal atrial fibrillation with RVR Acute heart failure with preserved EF Reported questionable allergic reaction to Eliquis Severe mitral regurgitation Moderate tricuspid regurgitation History of COPD History of schizophrenia History of mild intellectual disability PLAN: Obtain 2D echo to assess cardiac structure and function Wean off Cardizem drip as heart rate will tolerate Patient reports reaction to Eliquis. Begin Xarelto 20 mg this evening. Continue IV heparin until Xarelto is administered Continue IV Lasix 40 mg every 12 hours for today. Will transition to oral diuretics tomorrow Increase metoprolol succinate to 50 mg twice a day continue telemetry monitoring Further recommendations pending patient course Nurse practitioner note has been reviewed by physician. Signing provider agrees with the documented findings, assessment, and plan of care documented by CHIEF TELEPHONE OPERATOR as a scribe. Past Medical History Past Medical History: No Reported History Additional Past Medical History / Comment(s): polysubstance abuse. pt states she has not used drugs x 3 years. History of Any Multi-Drug Resistant Organisms: None Reported Past Surgical History: No Surgical Hx Reported Additional Past Surgical History / Comment(s): None stated Past Anesthesia/Blood Transfusion Reactions: No Reported Reaction Past Psychological History: No Psychological Hx Reported, Schizophrenia Smoking Status: Current every day smoker - Past Family History Mother Family Medical History: Myocardial Infarction ([place]) Additional Family Medical History / Comment(s): from heart attack Father Additional Family Medical History / Comment(s): from Heart attack Medications and Allergies Home Medications Medication Instructions Recorded Confirmed Type Benztropine Mesylate [Cogentin] 0.5 mg PO BID 30 Days #60 tab 03/16/24 08/11/24 Rx Haloperidol Decanoate [Haldol D] 150 mg IM Q21D #1 each 03/16/24 08/11/24 Rx Apixaban [Eliquis] 5 mg PO BID 30 Days #60 tab 06/07/24 08/11/24 Rx Metoprolol Succinate (ER) [Toprol 37.5 mg PO BID 08/11/24 08/11/24 History Xl] Allergies Allergy/AdvReac Type Severity Reaction Status Date / Time aspirin AdvReac Nausea & Verified 08/11/24 07:46 Vomiting Physical Exam Vitals: Vital Signs Temp Pulse Pulse Resp BP Pulse Ox 08/11/24 06:00 98.5 F 102 H 18 110/96 95 08/11/24 05:00 99 20 110/74 95 08/11/24 03:46 100 18 94/76 94 L 08/11/24 02:03 117 H 20 110/89 94 L 08/11/24 01:14 126 H 08/11/24 01:02 98.3 F 122 H 20 118/89 97 Intake and Output 08/10/24 08/11/24 08/11/24 22:59 06:59 14:59 Intake Total 18.833 Balance 18.833 Intake: Intake, IV Titration 18.833 Amount Diltiazem 125 mg In 18.833 Sodium Chloride 0.9% 100 ml @ 5 MG/HR 5 mls/hr IV .Q24H [facility] Rx#:[id number] Other: Weight 53.977 kg Results 08/11/24 01:17 08/11/24 07:51 Cardiac Enzymes 08/11/24 08/11/24 08/11/24 Range/Units 01:17 01:17 04:06 AST 84 H (14-36) U/L Troponin I 0.055 H* 0.056 H* (0.000-0.034) ng/mL Coagulation 08/11/24 Range/Units 01:17 PT 11.6 (10.0-12.5) sec APTT 21.2 L (22.0-30.0) sec CBC 08/11/24 Range/Units 01:17 WBC 7.3 (3.8-10.6) k/uL RBC 4.04 (3.80-5.40) m/uL Hgb 11.3 L (11.4-16.0) gm/dL Hct 36.6 (34.0-46.0) % Plt Count 264 (150-450) k/uL Comprehensive Metabolic Panel 08/11/24 Range/Units 01:17 Sodium 133 L (137-145) mmol/L Potassium 4.3 (3.5-5.1) mmol/L Chloride 100 (98-107) mmol/L Carbon Dioxide 28 (22-30) mmol/L BUN 19 H (7-17) mg/dL Creatinine 0.87 (0.52-1.04) mg/dL Glucose 118 H (74-99) mg/dL Calcium 8.2 L (8.4-10.2) mg/dL AST 84 H (14-36) U/L ALT 88 H (4-34) U/L Alkaline Phosphatase 96 (38-126) U/L Total Protein 5.1 L (6.3-8.2) g/dL Albumin 2.8 L (3.5-5.0) g/dL Current Medications Generic Name Dose Route Start Last Admin Trade Name Freq PRN Reason Stop Dose Admin Acetaminophen 650 mg 08/11/24 02:49 Acetaminophen Tab 325 Mg Tab PO Q6HR PRN Mild Pain or Fever > 100.5 Al Hydroxide/Mg Hydroxide 15 ml 08/11/24 02:49 Mag Hydrox/Al Hydrox/Simeth 30 Ml Cup PO Q6HR PRN Indigestion Albuterol/Ipratropium 3 ml 08/11/24 03:21 Ipratropium-Albuterol 3 Ml Neb INHALATION RT-QID PRN Shortness Of Breath Or Wheezing Alprazolam 0.25 mg 08/11/24 02:49 Alprazolam 0.25 Mg Tab PO Q6HR PRN Anxiety Benztropine Mesylate 0.5 mg 08/11/24 09:00 Benztropine Mesylate 0.5 Mg Tab PO BID [facility] Calcium Carbonate/Glycine 1,000 mg 08/11/24 02:49 Calcium Carbonate 500 Mg Chewable PO Q4HR PRN Dyspepsia Famotidine 20 mg 08/11/24 09:00 Famotidine 20 Mg Tab PO BID [facility] Furosemide 40 mg 08/11/24 09:00 Furosemide 10 Mg/Ml 4 Ml Vial IV Q12HR [facility] Heparin Sodium (Porcine) 0 unit 08/11/24 02:17 Heparin Sodium 1,000 Un/Ml (10ml Vl) IV PER PROTOCOL PRN Low PTT Protocol Diltiazem HCl 125 mg/ Sodium 125 mls @ 5 mls/hr 08/11/24 01:30 08/11/24 03:46 Chloride IV 15 mg/hr .Q24H [facility] 15 mls/hr Titration Protocol 5 MG/HR Heparin Sodium/Sodium Chloride 250 mls @ 6.477 mls/hr 08/11/24 02:30 08/11/24 02:39 25,000 unit/ Sodium Chloride IV 12 units/kg/hr .Q24H [facility] 6.477 mls/hr Administration Protocol 12 UNITS/KG/HR Metoprolol Tartrate 50 mg 08/11/24 09:00 Metoprolol Tartrate 50 Mg Tab PO BID [facility] Naloxone HCl 0.2 mg 08/11/24 02:49 Naloxone 0.4 Mg/Ml 1 Ml Vial IV Q2M PRN Opioid Reversal Ondansetron HCl 4 mg 08/11/24 02:49 Ondansetron 4 Mg/2 Ml Vial IVP Q8HR PRN Nausea And Vomiting Tramadol HCl 50 mg 08/11/24 02:49 Tramadol 50 Mg Tab PO Q6H PRN Moderate Pain (Scale 4 to 6) Intake and Output 08/10/24 08/11/24 08/11/24 22:59 06:59 14:59 Intake Total 18.833 Balance 18.833 Intake: Intake, IV Titration 18.833 Amount Diltiazem 125 mg In 18.833 Sodium Chloride 0.9% 100 ml @ 5 MG/HR 5 mls/hr IV .Q24H [facility] Rx#:[id number] Other: Weight 53.977 kg 08/11/24 01:17 08/11/24 01:17
--- NOTE | 2024-08-11 16:59 | CA ---
Transthoracic Echo Report Name: Yuko Valdez Age: 53 Gender: F : 1970 Exam Date: 08/11/2024 08:55 Exam Location: [facility] Ht (in): 68 Wt (lb): 119 Ordering Physician: Landen Sun MD Attending/Referring Phys: Manager Universal Shayla Lew RDCS Procedure CPT: Indications: afib Cardiac Hx: Technical Quality: Good Contrast 1: Total Dose (mL): Contrast 2: Total Dose (mL): MEASUREMENTS (Male / Female) Normal Values 2D ECHO LV Diastolic Diameter PLAX 7.2 cm 4.2 - 5.9 / 3.9 - 5.3 cm LV Systolic Diameter PLAX 6.1 cm IVS Diastolic Thickness 1.4 cm 0.6 - 1.0 / 0.6 - 0.9 cm LVPW Diastolic Thickness 1.1 cm 0.6 - 1.0 / 0.6 - 0.9 cm LV Relative Wall Thickness 0.3 RV Internal Dim ED PLAX 3.7 cm LA Systolic Diameter LX 7.1 cm 3.0 - 4.0 / 2.7 - 3.8 cm LV Diastolic Volume MOD 4C 214.5 cm??? LV Systolic Volume MOD 4C 152.6 cm??? LV Ejection Fraction MOD 4C 28.8 % LV Cardiac Index MOD 4C 3834.1 cm???/min???m??? LV Diastolic Length 4C 8.8 cm LV Systolic Length 4C 8.0 cm LV Diastolic Volume MOD 2C 159.1 cm??? LV Systolic Volume MOD 2C 91.9 cm??? LV Ejection Fraction MOD 2C 42.3 % LV Cardiac Index MOD 2C 4166.3 cm???/min???m??? LV Diastolic Length 2C 7.7 cm LV Systolic Length 2C 7.1 cm LA Volume 244.0 cm??? 18 - 58 / 22 - 52 cm??? LA Volume Index 152.7 cm???/m??? 16 - 28 cm???/m??? M-MODE Aortic Root Diameter MM 3.8 cm DOPPLER AV Peak Velocity 129.0 cm/s AV Peak Gradient 6.7 mmHg TR Peak Velocity 295.5 cm/s TR Peak Gradient 34.9 mmHg Right Ventricular Systolic Press 47.0 mmHg FINDINGS Left Ventricle Left ventricular ejection fraction is estimated at 30-35 %. Moderately increased septal wall thickness. Mildly increased posterior wall thickness. Severely increased left ventricular diastolic diameter. Moderately reduced global left ventricular systolic function. Right Ventricle Severe right ventricular dilatation. Moderate pulmonary hypertension. Right ventricular systolic pressure estimated at 47 mm hg. Right Atrium Severe right atrial dilatation. No right atrial thrombus or mass seen. Left Atrium Severely increased left atrial diameter. Severely increased left atrial volume. Severely increased left atrial area. Mitral Valve Mild thickening/calcification of the anterior mitral valve leaflet. Moderate thickening/calcification of the posterior mitral valve leaflet. Elongation of the anterior mitral valve leaflet. Cannot exclude partially flail posterior mitral valve leaflet. Severe mitral regurgitation. Anteriorly directed mitral regurgitation jet. Possible vegetation of posterior MVL Aortic Valve Trileaflet aortic valve. No aortic valve stenosis or regurgitation. Tricuspid Valve Structurally normal tricuspid valve. Mild tricuspid regurgitation. Pulmonic Valve Structurally normal pulmonic valve. Trace pulmonic regurgitation. Pericardium No pericardial effusion. Aorta Mild aortic dilatation at the level of the sinuses of valsalva 38 mm CONCLUSIONS Indication atrial fibrillation Reduced LV systolic function Mobile mass in relation to the mitral valve leaflets Severe mitral regurgitation Recommend ROLANDO to assess the mitral valve Previewed by: Dr. Mart Castillo MD (Electronically Signed) Final Date: 11 August 2024 16:59
[2024-08-11] MEDS: RIVAROXABAN 20 MG TAB PO SCH (17:45)
[2024-08-11] MEDS: ACETAMINOPHEN TAB 325 MG TAB PO PRN (19:55)
[2024-08-12] MEDS: ALPRAZolam 0.25 MG TAB PO PRN (03:20)
[2024-08-12 07:12] LABS: INR 1.1 (<1.2); Prothrombin Time 12.2 sec (10.0-12.5)
[2024-08-12 08:41] LABS: Anisocytosis Slight; Basophils % (A) 1 %; Eosinophils # (A) 0.1 k/uL (0-0.7); Eosinophils % (A) 1 %; HCT 35.8 % (34.0-46.0); Hypochromasia Marked; Lymphocytes # (A) 1.2 k/uL (1.0-4.8); Lymphocytes % (A) 16 %; MCH 27.7 pg (25.0-35.0); MCHC 30.8 g/dL (31.0-37.0); MCV 90.2 fL (80.0-100.0); Mean Platelet Volume 7.2; Monocytes # (A) 0.6 k/uL (0-1.0); Monocytes % (A) 9 %; Neutrophils # (A) 5.2 k/uL (1.3-7.7); Neutrophils % (A) 71 %; Platelet Count 241 k/uL (150-450); RBC 3.96 m/uL (3.80-5.40); RDW 16.6 % (11.5-15.5); WBC 7.3 k/uL (3.8-10.6)
[2024-08-12] MEDS: SACUBITRIL/VALSARTAN 24 MG-26 MG TABLET PO SCH (08:52)
[2024-08-12] MEDS: DAPAGLIFLOZIN PROPANEDIOL 10 MG TABLET PO SCH (08:52)
[2024-08-12] MEDS: SPIRONOLACTONE 25 MG TAB PO SCH (08:52)
--- NOTE | 2024-08-12 11:09 | P.PN ---
Subjective Progress Note Date: 08/12/24 53-year-old female with HFpEF (EF 55-60%), COPD not on home oxygen, paroxysmal atrial fibrillation anticoagulated on Eliquis, history of DVT, schizophrenia, mild intellectual disability, presenting with shortness of breath. Patient states she felt short of breath and noticed increased swelling in her lo wer extremities and stomach for the past 3 days. Patient states she was told to call EMS if her swelling started to become worse.. Patient states swelling is worse on the left leg. She was given nebulizer treatment by EMS. Patient states she has been compliant with all her medication. Patient endorses heart palpitations. Patient denies any fever, chills, cough, sputum production, chest pain, nausea, vomiting, diarrhea, urinary symptoms. 08/12 - She is seen and examined at bedside this morning, now on the 3rd floor. She was seen and evaluated by cardiology yesterday, recommended to switch from Eliquis to Xarelto 20 mg starting last night, as she has had reactions to Eliquis. Echocardiogram completed yesterday showed left ventricular ejection fraction of 30-35%, with severe right ventricular and right atrial dilation, evidence of moderate pulmonary hypertension, and evidence of severe mitral regurgitation. ROLANDO was recommended to further assess possible vegetation of the MVL. She is continued saturating on the low 90%'s while on room air. She has no acute complaints at this time. REVIEW OF SYSTEMS: Pertinent positives and negatives noted in HPI. Physical Exam: General: nontoxic, no distress, appears at stated age Derm: warm, dry, intact Head: atraumatic, normocephalic, symmetric Eyes: EOMI, anicteric sclera Mouth: no lip lesion, mucus membranes moist Cardiovascular: S1 S2 reg, no murmur, rubs, or gallops Lungs: CTA bilateral, no rales, no accessory muscle use Abdominal: soft, non-tender to palpataion, no appreciable organomegaly Extremities: no gross muscle atrophy, no edema, no contractures Neuro: Alert, Oriented, CNII-XII grossly intact, gait normal Psych: well appearing, appropriate affect Data Received Today: Labs: WBC 7.3, hemoglobin 11.0, hematocrit 35.8, platelet 241 Imagining: Echocardiogram done yesterday showed EF 30-35%, with increased low ventricular diastolic diameter, severe right ventricular and right atrial dilation, evidence of moderate pulmonary hypertension, mild thickening/calcification of the anterior mitral valve leaflet with moderate thickening/calcification of the posterior mitral valve leaflet. Elongation of the anterior mitral valve leaflet. Severe mitral regurgitation with anteriorly directed mitral regurgitation jet and possible vegetation of the posterior MVL. Assessment and plan 53-year-old female with HFpEF (EF 55-60%), COPD not on home oxygen, paroxysmal atrial fibrillation anticoagulated on Eliquis, schizophrenia presenting with shortness of breath. ED documentation reviewed. Discussed with the patient. T he patient is admitted for anticipated less than 2 midnight stay for evaluation of acute COPD exacerbation and acute heart failure exacerbation. #Acute HFrEF exacerbation (most recent echocardiogram/08/01 showed EF 30-35%) #Atrial fibrillation with RVR anticoagulated with Eliquis #Elevated troponin -Trend troponin: 0.055 -> 0.056 -> 0.067 -proBNP 8520 - Continue Xarelto 20 mg daily -S/p Lasix 80 mg IV once by ED -Transition to Lasix 40 mg p.o. twice daily - metoprolol XL (Toprol XL) 50 mg PO BID -Initiate on GDMT: Aldactone 12.5 mg daily, Entresto 2426 twice daily, Farxiga 10 mg daily -Strict intake output, daily weights -Cardiac monitoring -Cardiology consulted #Mitral vegetation #Severe mitral regurgitation -Needs ROLANDO -Blood cultures ordered, pending # Acute DVT on Eliquis, now switched to Xarelto -Endorses bilateral LE swelling, left leg > right leg -Venous Doppler ultrasound shows acute/chronic DVT #COPD (no home O2), not in acute exacerbation -Patient currently breathing on room air, denies any cough or sputum production -Bilateral rhonchi noted, no wheezing -DuoNebs as needed -Monitor oxygen level, maintain between 88-92% #Hypocalcemia -Calcium 8.2, corrected calcium 9.2 -Tums 1000 mg p.o. every 4 hours as needed #Normocytic anemia -No acute bleeding -Continue to monitor CBC #Transaminitis -AST 71, ALT 82 -Patient denies any abdominal pain -Likely secondary to congestive hepatopathy -Follow-up CMP DVT ppx: Xarelto 20 mg daily GI PPx: Pepcid 20 mg twice daily Code status: Full code F: None E: Replete as needed N: Heart healthy diet A: Ambulatory at baseline Anticipated discharge place: Pending clinical course Anticipated discharge time: Pending clinical course Dictation was produced using [employer] dictation software. please excuse any grammatical, word or spelling errors. Raymond Negro MD PGY-1 IM I saw and evaluated the patient during the graham and critical portions of this encounter, and discussed the case in detail with the resident author of this note, I agree with the Assessment and Plan, and my changes, if any, are highlig hted in blue. Objective - Vital Signs Vital signs: Vital Signs Temp 98.2 F 08/12/24 04:00 Pulse 90 08/12/24 04:00 Resp 16 08/12/24 04:00 BP 105/63 08/12/24 04:00 Pulse Ox 92 L 08/12/24 04:00 FiO2 Intake & Output 08/11/24 08/12/24 08/12/24 18:59 06:59 18:59 Intake Total 873.399 510 600 Output Total 600 200 Balance 873.399 -90 400 Weight 53.977 kg 70.3 kg Intake: IV 10 Invasive Line 1 10 Intake, IV Titration 93.399 Amount Diltiazem 125 mg In 92.751 Sodium Chloride 0.9% 100 ml @ 5 MG/HR 5 mls/hr IV .Q24H [facility] Rx#:[id number] Heparin Sod,Pork in 0.45% 0.648 NaCl 25,000 unit In 0.45 % NaCl 1 250ml.bag @ 12 UNITS/KG/HR 6.477 mls/hr IV .Q24H [facility] Rx#: [id number] Oral 780 500 600 Output: Urine 600 200 Other: Voiding Method Toilet Toilet Bedside Commode Bedside Commode # Voids 1 - Labs CBC & Chem 7: 08/12/24 06:28 08/12/24 07:51 Labs: Abnormal Lab Results - Last 24 Hours (Table) 08/11/24 08/11/24 08/11/24 Range/Units 07:51 07:51 15:54 APTT 21.8 L (22.0-30.0) sec Sodium 134 L (137-145) mmol/L Carbon Dioxide 31 H (22-30) mmol/L BUN 19 H (7-17) mg/dL Glucose 114 H (74-99) mg/dL Calcium 7.9 L (8.4-10.2) mg/dL AST 71 H (14-36) U/L ALT 82 H (4-34) U/L Troponin I 0.067 H* (0.000-0.034) ng/mL Total Protein 4.9 L (6.3-8.2) g/dL Albumin 2.7 L (3.5-5.0) g/dL
[2024-08-12 11:42] LABS: ALT 80 U/L (4-34); AST 62 U/L (14-36); African American GFR (CKD) 89 (>60 ml/min/1.73 sqM); Albumin 2.7 g/dL (3.5-5.0); Alkaline Phosphatase 86 U/L (38-126); Anion Gap 5 mmol/L; Blood Urea Nitrogen 21 mg/dL (7-17); Carbon Dioxide 33 mmol/L (22-30); Chloride 94 mmol/L (98-107); Glucose 104 mg/dL (74-99); Magnesium 1.7 mg/dL (1.6-2.3); Non-African American GFR(CKD) 77 (>60 ml/min/1.73 sqM); Sodium 132 mmol/L (137-145); Total Bilirubin 0.5 mg/dL (0.2-1.3)
--- NOTE | 2024-08-12 13:33 | P.PN ---
Subjective HISTORY OF PRESENT ILLNESS: This is a 53-year-old female with a past medical history significant for paroxysmal atrial fibrillation with, COPD, and schizophrenia. Patient used to follow in the office with Dr. Ayala but has not been seen since April 2022. We have been asked to see the patient in consultation for atrial fibrillation. Patient examined at the bedside in the ER. The patient is a poor historian. Patient states that she came to the ER because she had an allergic reaction to "a pink pill", which she believes is her Eliquis. Patient was found to be in A- fib with RVR. She was started on IV heparin and IV Cardizem. She remains in atrial fibrillation with heart rate in the 90s. DIAGNOSTICS: - EKG reveals A-fib with RVR. - Chest xray mild CHF. Small bilateral pleural effusions. - Laboratory data: WBC 7.3. Hemoglobin 11.3. Platelet count 264. Sodium 133. Potassium 4.3. BUN 19. Creatinine 0.87. AST 84. ALT 88. Troponin 0.055. 0.056. proBNP 8520. - Current home cardiac medications include Eliquis 5 mg twice a day and metoprolol succinate 37.5 mg twice a day. - Most recent echocardiogram obtained in March 2022 reveals ejection fraction 55%, moderate LVH, severe mitral regurgitation, moderate tricuspid regurgitation. - Cardiac catheterization history: unknown 08/12/2024 Patient examined this morning at the bedside. Patient currently denies chest pain or pressure. She denies shortness of breath. She remains on IV Lasix 40 mg every 12 hours. Labs from this morning are currently pending. Telemetry reveals atrial fibrillation with controlled ventricular rate. Echocardiogram performed revealing ejection fraction 30 to 35%, moderate pulmonary hypertension, mild TR, mobile mass in relation to the mitral valve leaflet. PHYSICAL EXAM: VITAL SIGNS: Reviewed. GENERAL: Well-developed in no acute distress. HEENT: Head is normocephalic. Pupils are equal, round. Sclerae anicteric. Mucous membranes of the mouth are moist. Neck supple. No JVD or thyromegaly LUNGS: Respirations even and unlabored. Lungs essentially clear to auscultation bilaterally. HEART: Irregular rate and rhythm. S1 and S2 heard. ABDOMEN: Soft. Nondistended. Nontender. EXTREMITIES: Normal range of motion. No clubbing or cyanosis. Peripheral pulses intact. No lower extremity edema NEUROLOGIC: Awake and alert. Oriented x 3. ASSESSMENT: Paroxysmal atrial fibrillation with RVR Acute heart failure with reduced EF New onset cardiomyopathy, ischemic versus nonischemic Reported questionable allergic reaction to Eliquis Severe mitral regurgitation Moderate tricuspid regurgitation History of COPD History of schizophrenia History of mild intellectual disability PLAN: Patient reports reaction to Eliquis. Patient switched to Xarelto 20 mg daily. Continue Farxiga, Lasix, metoprolol, Entresto, Aldactone Continue telemetry monitoring Dr. Keating reviewed echo images with no evidence of vegetation and appears to be flail leaflet of the mitral valve. Blood cultures ordered. However, patient without any clinical suspicion for endocarditis. Discussed echo results with patient including new onset cardiomyopathy with ej ection fraction 30 to 35%. Discussed possibility of cardiac catheterization and/or ROLANDO. Patient states that she does not want to undergo any invasive procedures or surgery. Explained the risk of not having any procedures performed including the risk of . Patient verbalized understanding and continues to decline cardiac catheterization and/or ROLANDO. Continue with medical management at this time Further recommendations pending patient course Nurse practitioner note has been reviewed by physician. Signing provider agrees with the documented findings, assessment, and plan of care documented by PROCESS CHECKER as a scribe. Objective - Vital Signs Vital signs: Vital Signs Temp 98.2 F 08/12/24 04:00 Pulse 90 08/12/24 04:00 Resp 16 08/12/24 04:00 BP 105/63 08/12/24 04:00 Pulse Ox 92 L 08/12/24 04:00 FiO2 Intake & Output 08/11/24 08/12/24 08/12/24 18:59 06:59 18:59 Intake Total 873.399 510 600 Output Total 600 200 Balance 873.399 -90 400 Weight 53.977 kg 70.3 kg Intake: IV 10 Invasive Line 1 10 Intake, IV Titration 93.399 Amount Diltiazem 125 mg In 92.751 Sodium Chloride 0.9% 100 ml @ 5 MG/HR 5 mls/hr IV .Q24H [facility] Rx#:[id number] Heparin Sod,Pork in 0.45% 0.648 NaCl 25,000 unit In 0.45 % NaCl 1 250ml.bag @ 12 UNITS/KG/HR 6.477 mls/hr IV .Q24H [facility] Rx#: [id number] Oral 780 500 600 Output: Urine 600 200 Other: Voiding Method Toilet Toilet Bedside Commode Bedside Commode # Voids 1 - Labs CBC & Chem 7: 08/12/24 06:28 08/12/24 07:51 Labs: Abnormal Lab Results - Last 24 Hours (Table) 08/11/24 08/11/24 08/11/24 Range/Units 07:51 07:51 15:54 APTT 21.8 L (22.0-30.0) sec Sodium 134 L (137-145) mmol/L Carbon Dioxide 31 H (22-30) mmol/L BUN 19 H (7-17) mg/dL Glucose 114 H (74-99) mg/dL Calcium 7.9 L (8.4-10.2) mg/dL AST 71 H (14-36) U/L ALT 82 H (4-34) U/L Troponin I 0.067 H* (0.000-0.034) ng/mL Total Protein 4.9 L (6.3-8.2) g/dL Albumin 2.7 L (3.5-5.0) g/dL
[2024-08-12] MEDS: FUROSEMIDE 20 MG TAB PO SCH (17:05)
[2024-08-12] MEDS: METOPROLOL SUCCINATE (ER) 25 MG TAB.ER.24H PO SCH (20:23)
[2024-08-13 06:33] LABS: Anisocytosis Slight; Basophils % (A) 1 %; Eosinophils # (A) 0.1 k/uL (0-0.7); Eosinophils % (A) 1 %; HCT 36.8 % (34.0-46.0); HGB 11.7 gm/dL (11.4-16.0); Hypochromasia Marked; Lymphocytes # (A) 1.5 k/uL (1.0-4.8); Lymphocytes % (A) 23 %; MCH 28.5 pg (25.0-35.0); MCHC 31.8 g/dL (31.0-37.0); MCV 89.8 fL (80.0-100.0); Mean Platelet Volume 7.2; Monocytes # (A) 0.6 k/uL (0-1.0); Monocytes % (A) 9 %; Neutrophils % (A) 63 %; Platelet Count 285 k/uL (150-450); Poikilocytosis Slight; RDW 16.5 % (11.5-15.5); WBC 6.4 k/uL (3.8-10.6)
[2024-08-13 06:36] LABS: ALT 56 U/L (4-34); AST 46 U/L (14-36); African American GFR (CKD) 81 (>60 ml/min/1.73 sqM); Albumin 2.6 g/dL (3.5-5.0); Alkaline Phosphatase 84 U/L (38-126); Anion Gap 3 mmol/L; Blood Urea Nitrogen 24 mg/dL (7-17); Calcium 8.4 mg/dL (8.4-10.2); Carbon Dioxide 36 mmol/L (22-30); Chloride 95 mmol/L (98-107); Glucose 112 mg/dL (74-99); Magnesium 1.7 mg/dL (1.6-2.3); Non-African American GFR(CKD) 71 (>60 ml/min/1.73 sqM); Potassium 3.6 mmol/L (3.5-5.1); Sodium 134 mmol/L (137-145); Total Bilirubin 0.4 mg/dL (0.2-1.3); Total Protein 4.7 g/dL (6.3-8.2)
[2024-08-13] MEDS: POTASSIUM CHLORIDE ER 20 MEQ TAB.ER PO STA (11:08)
--- NOTE | 2024-08-13 13:34 | P.PN ---
Subjective Progress Note Date: 08/13/24 53-year-old female with HFpEF (EF 55-60%), COPD not on home oxygen, paroxysmal atrial fibrillation anticoagulated on Eliquis, history of DVT, schizophrenia, mild intellectual disability, presenting with shortness of breath. Patient states she felt short of breath and noticed increased swelling in her lo wer extremities and stomach for the past 3 days. Patient states she was told to call EMS if her swelling started to become worse.. Patient states swelling is worse on the left leg. She was given nebulizer treatment by EMS. Patient states she has been compliant with all her medication. Patient endorses heart palpitations. Patient denies any fever, chills, cough, sputum production, chest pain, nausea, vomiting, diarrhea, urinary symptoms. 08/12 - She is seen and examined at bedside this morning, now on the 3rd floor. She was seen and evaluated by cardiology yesterday, recommended to switch from Eliquis to Xarelto 20 mg starting last night, as she has had reactions to Eliquis. Echocardiogram completed yesterday showed left ventricular ejection fraction of 30-35%, with severe right ventricular and right atrial dilation, evidence of moderate pulmonary hypertension, and evidence of severe mitral regurgitation. ROLANDO was recommended to further assess possible vegetation of the MVL. She is continued saturating on the low 90%'s while on room air. She has no acute complaints at this time. 08/13 - She is seen and examined at bedside this morning. She had no acute events overnight, and has no acute complaints this time. Per cardiology, echocardiogram was reviewed and it was determined that the suspicion for vegetation is low at this time. However, blood cultures were already ordered and are currently pending. Suspicion for endocarditis is very low at this time, without any signs or symptoms. Has been discussed with the patient the importance of further studies, ROLANDO and/or cardiac catheterization, to evaluate for new onset cardiomyopathy with reduced ejection fraction (30-35%), however she continues to insist she does not have interest in undergoing invasive procedure and/or surgery of any kind. The risks have been discussed and emphasized where, she verbalized understanding and states that she will consider it. REVIEW OF SYSTEMS: Pertinent positives and negatives noted in HPI. Physical Exam: General: nontoxic, no distress, appears at stated age Derm: warm, dry, intact Head: atraumatic, normocephalic, symmetric Eyes: EOMI, anicteric sclera Mouth: no lip lesion, mucus membranes moist Cardiovascular: S1 S2 reg, no murmur, rubs, or gallops Lungs: CTA bilateral, no rales, no accessory muscle use Abdominal: soft, non-tender to palpataion, no appreciable organomegaly Extremities: no gross muscle atrophy, no edema, no contractures Neuro: Alert, Oriented, CNII-XII grossly intact, gait normal Psych: well appearing, appropriate affect Data Received Today: Labs: WBC 6.4, hemoglobin 11.7, hematocrit 36.8, platelet 285; sodium 134, potassium 3.6, bicarb 36, BUN 24, creatinine 0.92, AST 46, ALT 56 Imagining: Echocardiogram done yesterday showed EF 30-35%, with increased low ventricular diastolic diameter, severe right ventricular and right atrial dilation, evidence of moderate pulmonary hypertension, mild thickening/calcification of the anterior mitral valve leaflet with moderate thickening/calcification of the posterior mitral valve leaflet. Elongation of the anterior mitral valve leaflet. Severe mitral regurgitation with anteriorly directed mitral regurgitation jet and possible vegetation of the posterior MVL. Assessment and plan 53-year-old female with HFpEF (EF 55-60%), COPD not on home oxygen, paroxysmal atrial fibrillation anticoagulated on Eliquis, schizophrenia presenting with shortness of breath. ED documentation reviewed. Discussed with the patient. The patient is admitted for anticipated less than 2 midnight stay for evaluation of acute COPD exacerbation and acute heart failure exacerbation. #Acute HFrEF exacerbation (most recent echocardiogram 08/12/23 showed EF 30-35%) #Atrial fibrillation with RVR anticoagulated with Eliquis #Elevated troponin -Trend troponin: 0.055 -> 0.056 -> 0.067 -proBNP 8520 -Continue Xarelto 20 mg daily -Transition to Lasix 40 mg p.o. daily -Metoprolol XL (Toprol-XL) 75 mg p.o. twice daily -Initiate on GDMT: Aldactone 12.5 mg daily, Entresto 2426 twice daily, Farxiga 10 mg daily -Strict intake output, daily weights -Cardiac monitoring -Cardiology consulted #Mitral vegetation, echocardiogram reviewed by cardiology determined suspicion for vegetation low #Severe mitral regurgitation -Needs ROLANDO; per cardiology, discussed with the patient importance of ROLANDO and possible cardiac catheterization, the patient declined while verbalizing unders tanding the risks -Blood cultures ordered, pending; suspicion for endocarditis low at this time; ESR, CRP pending #Acute DVT on Eliquis, now switched to Xarelto -Endorses bilateral LE swelling, left leg > right leg -Venous Doppler ultrasound shows acute/chronic DVT #COPD (no home O2), not in acute exacerbation -Patient currently breathing on room air, denies any cough or sputum production -Bilateral rhonchi noted, no wheezing -DuoNebs as needed -Monitor oxygen level, maintain between 88-92% - Will need ambulatory oxygen testing prior to discharge #Hypocalcemia -Calcium 8.2, corrected calcium 9.2 -Tums 1000 mg p.o. every 4 hours as needed #Metabolic alkalosis, possibly secondary to being a CO2 retainer with components of diuretic use -Continue to reevaluate and determine need for diuretics -Discontinue as able, and continue to monitor BMP for resolution #Normocytic anemia -No acute bleeding -Continue to monitor CBC #Transaminitis, improving -AST 46, ALT 56 -Patient denies any abdominal pain -Likely secondary to congestive hepatopathy -Follow-up CMP DVT ppx: Xarelto 20 mg daily GI PPx: Pepcid 20 mg twice daily Code status: Full code F: None E: Replete as needed N: Heart healthy diet A: Ambulatory at baseline Anticipated discharge place: Pending clinical course Anticipated discharge time: Pending clinical course Dictation was produced using [employer] dictation software. please excuse any grammatical, word or spelling errors. Raymond Negro MD PGY-1 IM I saw and evaluated the patient during the graham and critical portions of this encounter, and discussed the case in detail with the resident author of this note, I agree with the Assessment and Plan, and my changes, if any, are highlighted in blue. Objective - Vital Signs Vital signs: Vital Signs Temp 97.8 F 08/13/24 03:13 Pulse 52 L 08/13/24 03:13 Resp 18 08/13/24 03:13 BP 94/59 08/13/24 03:13 Pulse Ox 90 L 08/13/24 03:13 FiO2 Intake & Output 08/12/24 08/13/24 08/13/24 18:59 06:59 18:59 Intake Total 1198 140 Output Total 1100 200 Balance 98 -60 Weight 70.2 kg Intake: IV 20 20 Invasive Line 1 20 20 Oral 1178 120 Output: Urine 1100 200 Other: Voiding Method Toilet Bedside Commode - Labs CBC & Chem 7: 08/13/24 05:53 08/13/24 05:53 Labs: Abnormal Lab Results - Last 24 Hours (Table) 08/12/24 08/12/24 08/13/24 Range/Units 06:28 07:51 05:53 Hgb 11.0 L (11.4-16.0) gm/dL MCHC 30.8 L (31.0-37.0) g/dL RDW 16.6 H (11.5-15.5) % Sodium 132 L 134 L (137-145) mmol/L Chloride 94 L 95 L (98-107) mmol/L Carbon Dioxide 33 H 36 H (22-30) mmol/L BUN 21 H 24 H (7-17) mg/dL Glucose 104 H 112 H (74-99) mg/dL Calcium 8.0 L (8.4-10.2) mg/dL AST 62 H 46 H (14-36) U/L ALT 80 H 56 H (4-34) U/L Total Protein 5.0 L 4.7 L (6.3-8.2) g/dL Albumin 2.7 L 2.6 L (3.5-5.0) g/dL 08/13/24 Range/Units 05:53 Hgb (11.4-16.0) gm/dL MCHC (31.0-37.0) g/dL RDW 16.5 H (11.5-15.5) % Sodium (137-145) mmol/L Chloride (98-107) mmol/L Carbon Dioxide (22-30) mmol/L BUN (7-17) mg/dL Glucose (74-99) mg/dL Calcium (8.4-10.2) mg/dL AST (14-36) U/L ALT (4-34) U/L Total Protein (6.3-8.2) g/dL Albumin (3.5-5.0) g/dL
[2024-08-13] MEDS: METOPROLOL SUCCINATE (ER) 100 MG TAB.ER.24H PO SCH (20:26)
--- NOTE | 2024-08-13 23:07 | P.PN ---
Subjective Progress Note Date: 08/13/24 HISTORY OF PRESENT ILLNESS: This is a 53-year-old female with a past medical history significant for p aroxysmal atrial fibrillation with, COPD, and schizophrenia. Patient used to follow in the office with Dr. Ayala but has not been seen since April 2022. We have been asked to see the patient in consultation for atrial fibrillation. Patient examined at the bedside in the ER. The patient is a poor historian. Patient states that she came to the ER because she had an allergic reaction to "a pink pill", which she believes is her Eliquis. Patient was found to be in A- fib with RVR. She was started on IV heparin and IV Cardizem. She remains in atrial fibrillation with heart rate in the 90s. DIAGNOSTICS: - EKG reveals A-fib with RVR. - Chest xray mild CHF. Small bilateral pleural effusions. - Laboratory data: WBC 7.3. Hemoglobin 11.3. Platelet count 264. Sodium 133. Potassium 4.3. BUN 19. Creatinine 0.87. AST 84. ALT 88. Troponin 0.055. 0.056. proBNP 8520. - Current home cardiac medications include Eliquis 5 mg twice a day and metoprolol succinate 37.5 mg twice a day. - Most recent echocardiogram obtained in March 2022 reveals ejection fraction 55%, moderate LVH, severe mitral regurgitation, moderate tricuspid regurgitation. - Cardiac catheterization history: unknown 08/12/2024 Patient examined this morning at the bedside. Patient currently denies chest pain or pressure. She denies shortness of breath. She remains on IV Lasix 40 mg every 12 hours. Labs from this morning are currently pending. Telemetry reveals atrial fibrillation with controlled ventricular rate. Echocardiogram performed revealing ejection fraction 30 to 35%, moderate pulmonary hyperten merlin, mild TR, mobile mass in relation to the mitral valve leaflet. 08/13/2024 Patient does not appear to be volume overloaded Denies any chest pain chest pressure shortness of breath Blood pressure is low normal Atrial fibrillation on telemetry with heart rate around 90 -110 bpm. PHYSICAL EXAM: VITAL SIGNS: Reviewed. GENERAL: Well-developed in no acute distress. HEENT: Head is normocephalic. Pupils are equal, round. Sclerae anicteric. Mucous membranes of the mouth are moist. Neck supple. No JVD or thyromegaly LUNGS: Respirations even and unlabored. Lungs essentially clear to auscultation bilaterally. HEART: Irregular rate and rhythm. S1 and S2 heard. ABDOMEN: Soft. Nondistended. Nontender. EXTREMITIES: Normal range of motion. No clubbing or cyanosis. Peripheral pulses intact. No lower extremity edema NEUROLOGIC: Awake and alert. Oriented x 3. ASSESSMENT: Paroxysmal atrial fibrillation with RVR Acute heart failure with reduced EF New onset cardiomyopathy, ischemic versus nonischemic Reported questionable allergic reaction to Eliquis Severe mitral regurgitation Moderate tricuspid regurgitation History of COPD History of schizophrenia History of mild intellectual disability PLAN: Patient reports reaction to Eliquis. Patient switched to Xarelto 20 mg daily. Continue Farxiga, Lasix, metoprolol, Entresto, Aldactone Continue telemetry monitoring Dr. Keating reviewed echo images with no evidence of vegetation and appears to be flail leaflet of the mitral valve. Blood cultures ordered. However, patient without any clinical suspicion for endocarditis. Discussed echo results with patient including new onset cardiomyopathy with ejection fraction 30 to 35%. Discussed possibility of cardiac catheterization and/or ROLANDO. Patient states that she does not want to undergo any invasive procedures or surgery. Explained the risk of not having any procedures performed including the risk of . Patient verbalized understanding and continues to decline cardiac catheterization and/or ROLANDO. Patient has denied any advanced cardiac procedures at this time. From prior charting it appears that patient is capable of making medical decisions for herself. At this time I would consider palliative care for the patient if she is not wanting to get ROLANDO or heart catheterization procedure done. Maximize current directed medical therapy Cardiology team will sign off Objective - Vital Signs Vital signs: Vital Signs Temp 97.6 F 08/13/24 20:00 Pulse 114 H 08/13/24 20:00 Resp 18 08/13/24 20:00 BP 104/70 08/13/24 20:00 Pulse Ox 96 08/13/24 20:00 FiO2 Intake & Output 08/13/24 08/13/24 08/14/24 06:59 18:59 06:59 Intake Total 140 812 Output Total 200 1460 Balance -60 -648 Weight 70.2 kg Intake: IV 20 10 Invasive Line 1 20 10 Oral 120 802 Output: Urine 200 1460 Other: Voiding Method Toilet Toilet Toilet Bedside Commode Bedside Commode Bedside Commode - Labs CBC & Chem 7: 08/13/24 05:53 08/13/24 05:53 Labs: Abnormal Lab Results - Last 24 Hours (Table) 08/13/24 08/13/24 Range/Units 05:53 05:53 RDW 16.5 H (11.5-15.5) % Sodium 134 L (137-145) mmol/L Chloride 95 L (98-107) mmol/L Carbon Dioxide 36 H (22-30) mmol/L BUN 24 H (7-17) mg/dL Glucose 112 H (74-99) mg/dL AST 46 H (14-36) U/L ALT 56 H (4-34) U/L Total Protein 4.7 L (6.3-8.2) g/dL Albumin 2.6 L (3.5-5.0) g/dL Microbiology - Last 24 Hours (Table) 08/12/24 08:29 Blood Culture - Preliminary Blood
[2024-08-14 07:33] LABS: ALT 60 U/L (4-34); AST 42 U/L (14-36); African American GFR (CKD) 89 (>60 ml/min/1.73 sqM); Alkaline Phosphatase 82 U/L (38-126); Anion Gap 4 mmol/L; Blood Urea Nitrogen 20 mg/dL (7-17); Calcium 8.7 mg/dL (8.4-10.2); Carbon Dioxide 32 mmol/L (22-30); Chloride 98 mmol/L (98-107); Glucose 109 mg/dL (74-99); Non-African American GFR(CKD) 77 (>60 ml/min/1.73 sqM); Potassium 4.3 mmol/L (3.5-5.1); Sodium 134 mmol/L (137-145); Total Bilirubin 0.5 mg/dL (0.2-1.3); Total Protein 5.4 g/dL (6.3-8.2)
[2024-08-14 07:39] LABS: Anisocytosis Slight; Basophils % (A) 1 %; Eosinophils # (A) 0.1 k/uL (0-0.7); Eosinophils % (A) 1 %; HCT 39.4 % (34.0-46.0); HGB 12.3 gm/dL (11.4-16.0); Hypochromasia Marked; Lymphocytes # (A) 1.5 k/uL (1.0-4.8); Lymphocytes % (A) 23 %; MCH 28.2 pg (25.0-35.0); MCHC 31.3 g/dL (31.0-37.0); MCV 89.9 fL (80.0-100.0); Mean Platelet Volume 7.7; Monocytes # (A) 0.8 k/uL (0-1.0); Monocytes % (A) 12 %; Neutrophils # (A) 3.8 k/uL (1.3-7.7); Neutrophils % (A) 59 %; Platelet Count 290 k/uL (150-450); Poikilocytosis Slight; RBC 4.38 m/uL (3.80-5.40); RDW 16.4 % (11.5-15.5); WBC 6.5 k/uL (3.8-10.6)
[2024-08-14] MEDS: FUROSEMIDE 10 MG/ML 4 ML VIAL IV SCH (08:00)
--- NOTE | 2024-08-14 14:28 | P.PN ---
Subjective Progress Note Date: 08/14/24 53-year-old female with HFpEF (EF 55-60%), COPD not on home oxygen, paroxysmal atrial fibrillation anticoagulated on Eliquis, history of DVT, schizophrenia, mild intellectual disability, presenting with shortness of breath. Patient states she felt short of breath and noticed increased swelling in her lo wer extremities and stomach for the past 3 days. Patient states she was told to call EMS if her swelling started to become worse.. Patient states swelling is worse on the left leg. She was given nebulizer treatment by EMS. Patient states she has been compliant with all her medication. Patient endorses heart palpitations. Patient denies any fever, chills, cough, sputum production, chest pain, nausea, vomiting, diarrhea, urinary symptoms. 08/12 - She is seen and examined at bedside this morning, now on the 3rd floor. She was seen and evaluated by cardiology yesterday, recommended to switch from Eliquis to Xarelto 20 mg starting last night, as she has had reactions to Eliquis. Echocardiogram completed yesterday showed left ventricular ejection fraction of 30-35%, with severe right ventricular and right atrial dilation, evidence of moderate pulmonary hypertension, and evidence of severe mitral regurgitation. ROLANDO was recommended to further assess possible vegetation of the MVL. She is continued saturating on the low 90%'s while on room air. She has no acute complaints at this time. 08/13 - She is seen and examined at bedside this morning. She had no acute events overnight, and has no acute complaints this time. Per cardiology, echocardiogram was reviewed and it was determined that the suspicion for vegetation is low at this time. However, blood cultures were already ordered and are currently pending. Suspicion for endocarditis is very low at this time, without any signs or symptoms. Has been discussed with the patient the importance of further studies, ROLANDO and/or cardiac catheterization, to evaluate for new onset cardiomyopathy with reduced ejection fraction (30-35%), however she continues to insist she does not have interest in undergoing invasive procedure and/or surgery of any kind. The risks have been discussed and emphasized where, she verbalized understanding and states that she will consider it. 08/14 - no new complaints. Seen up and ambulating in the room. Psych consult was placed overnight due to bizarre behavior. REVIEW OF SYSTEMS: Pertinent positives and negatives noted in HPI. Physical Exam: General: nontoxic, no distress, appears at stated age Derm: warm, dry, intact Head: atraumatic, normocephalic, symmetric Eyes: EOMI, anicteric sclera Mouth: no lip lesion, mucus membranes moist Cardiovascular: S1 S2 reg, no murmur, rubs, or gallops Lungs: CTA bilateral, no rales, no accessory muscle use Abdominal: soft, non-tender to palpataion, no appreciable organomegaly Extremities: no gross muscle atrophy, no edema, no contractures Neuro: Alert, Oriented, CNII-XII grossly intact, gait normal Psych: well appearing, appropriate affect Data Received Today: Bicarb improving 32, Na stable 134, BUN 20 Assessment and plan 53-year-old female with HFpEF (EF 55-60%), COPD not on home oxygen, paroxysmal atrial fibrillation anticoagulated on Eliquis, schizophrenia presenting with shortness of breath. ED documentation reviewed. Discussed with the patient. The patient is admitted for anticipated less than 2 midnight stay for evaluation of acute COPD exacerbation and acute heart failure exacerbation. #Acute HFrEF exacerbation (most recent echocardiogram 08/12/23 showed EF 30-35%) #Atrial fibrillation with RVR anticoagulated with Eliquis #Elevated troponin -Trend troponin: 0.055 -> 0.056 -> 0.067 -proBNP 8520 -Continue Xarelto 20 mg daily -Transition to Lasix 40 mg p.o. daily -Metoprolol XL (Toprol-XL) 75 mg p.o. twice daily -Initiate on GDMT: Aldactone 12.5 mg daily, Entresto 2426 twice daily, Farxiga 10 mg daily -Strict intake output, daily weights -Cardiac monitoring -Cardiology consulted #Mitral vegetation, echocardiogram reviewed by cardiology determined suspicion for vegetation low #Severe mitral regurgitation -Needs ROLANDO; per cardiology, discussed with the patient importance of ROLANDO and possible cardiac catheterization, the patient declined while verbalizing underst anding the risks -Blood cultures ordered, pending; suspicion for endocarditis low at this time; ESR, CRP are low - IE effectively ruled out #Acute DVT on Eliquis, now switched to Xarelto -Endorses bilateral LE swelling, left leg > right leg -Venous Doppler ultrasound shows acute/chronic DVT #COPD (no home O2), not in acute exacerbation -Patient currently breathing on room air, denies any cough or sputum production -Bilateral rhonchi noted, no wheezing -DuoNebs as needed -Monitor oxygen level, maintain between 88-92% - Will need ambulatory oxygen testing prior to discharge #Hypocalcemia -Calcium 8.2, corrected calcium 9.2 -Tums 1000 mg p.o. every 4 hours as needed #Metabolic alkalosis, possibly secondary to being a CO2 retainer with components of diuretic use -Continue to reevaluate and determine need for diuretics -Discontinue as able, and continue to monitor BMP for resolution #Normocytic anemia -No acute bleeding -Continue to monitor CBC #Transaminitis, improving -AST 46, ALT 56 -Patient denies any abdominal pain -Likely secondary to congestive hepatopathy -Follow-up CMP DVT ppx: Xarelto 20 mg daily GI PPx: Pepcid 20 mg twice daily Code status: Full code F: None E: Replete as needed N: Heart healthy diet A: Ambulatory at baseline Anticipated discharge place: Pending clinical course Anticipated discharge time: Pending clinical course Dictation was produced using [employer] dictation software. please excuse any grammatical, word or spelling errors. Objective - Vital Signs Vital signs: Vital Signs Temp 97.4 F L 08/14/24 11:25 Pulse 80 08/14/24 11:25 Resp 20 08/14/24 11:25 BP 100/67 08/14/24 11:25 Pulse Ox 92 L 08/14/24 11:25 FiO2 Intake & Output 08/13/24 08/14/24 08/14/24 18:59 06:59 18:59 Intake Total 812 250 Output Total 1460 300 Balance -648 -50 Weight 65.7 kg Intake: IV 10 10 Invasive Line 1 10 10 Oral 802 240 Output: Urine 1460 300 Other: Voiding Method Toilet Toilet Toilet Bedside Commode Bedside Commode Bedside Commode # Voids 2 0 - Labs CBC & Chem 7: 08/14/24 06:35 08/14/24 06:35 Labs: Abnormal Lab Results - Last 24 Hours (Table) 08/14/24 08/14/24 Range/Units 06:35 06:35 RDW 16.4 H (11.5-15.5) % Sodium 134 L (137-145) mmol/L Carbon Dioxide 32 H (22-30) mmol/L BUN 20 H (7-17) mg/dL Glucose 109 H (74-99) mg/dL AST 42 H (14-36) U/L ALT 60 H (4-34) U/L Total Protein 5.4 L (6.3-8.2) g/dL Albumin 3.0 L (3.5-5.0) g/dL Microbiology - Last 24 Hours (Table) 08/12/24 08:29 Blood Culture - Preliminary Blood
[2024-08-15 06:47] LABS: Anisocytosis Slight; Basophils # (A) 0.1 k/uL (0-0.2); Basophils % (A) 1 %; Eosinophils # (A) 0.1 k/uL (0-0.7); Eosinophils % (A) 1 %; HCT 38.9 % (34.0-46.0); HGB 11.6 gm/dL (11.4-16.0); Hypochromasia Marked; Lymphocytes # (A) 1.4 k/uL (1.0-4.8); Lymphocytes % (A) 20 %; MCH 26.8 pg (25.0-35.0); MCHC 29.7 g/dL (31.0-37.0); MCV 90.4 fL (80.0-100.0); Monocytes # (A) 0.6 k/uL (0-1.0); Monocytes % (A) 9 %; Neutrophils # (A) 4.6 k/uL (1.3-7.7); Neutrophils % (A) 66 %; Platelet Count 276 k/uL (150-450); Poikilocytosis Slight; RBC 4.31 m/uL (3.80-5.40); RDW 16.5 % (11.5-15.5)
[2024-08-15 07:11] LABS: African American GFR (CKD) >90 (>60 ml/min/1.73 sqM); Anion Gap 1 mmol/L; Blood Urea Nitrogen 22 mg/dL (7-17); Calcium 8.7 mg/dL (8.4-10.2); Carbon Dioxide 35 mmol/L (22-30); Chloride 96 mmol/L (98-107); Glucose 104 mg/dL (74-99); Non-African American GFR(CKD) 89 (>60 ml/min/1.73 sqM); Potassium 4.5 mmol/L (3.5-5.1); Sodium 132 mmol/L (137-145)
--- NOTE | 2024-08-15 13:16 | P.PN ---
Subjective Progress Note Date: 08/15/24 53-year-old female with HFpEF (EF 55-60%), COPD not on home oxygen, paroxysmal atrial fibrillation anticoagulated on Eliquis, history of DVT, schizophrenia, mild intellectual disability, presenting with shortness of breath. Patient states she felt short of breath and noticed increased swelling in her lo wer extremities and stomach for the past 3 days. Patient states she was told to call EMS if her swelling started to become worse.. Patient states swelling is worse on the left leg. She was given nebulizer treatment by EMS. Patient states she has been compliant with all her medication. Patient endorses heart palpitations. Patient denies any fever, chills, cough, sputum production, chest pain, nausea, vomiting, diarrhea, urinary symptoms. 08/12 - She is seen and examined at bedside this morning, now on the 3rd floor. She was seen and evaluated by cardiology yesterday, recommended to switch from Eliquis to Xarelto 20 mg starting last night, as she has had reactions to Eliquis. Echocardiogram completed yesterday showed left ventricular ejection fraction of 30-35%, with severe right ventricular and right atrial dilation, evidence of moderate pulmonary hypertension, and evidence of severe mitral regurgitation. ROLANDO was recommended to further assess possible vegetation of the MVL. She is continued saturating on the low 90%'s while on room air. She has no acute complaints at this time. 08/13 - She is seen and examined at bedside this morning. She had no acute events overnight, and has no acute complaints this time. Per cardiology, echocardiogram was reviewed and it was determined that the suspicion for vegetation is low at this time. However, blood cultures were already ordered and are currently pending. Suspicion for endocarditis is very low at this time, without any signs or symptoms. Has been discussed with the patient the importance of further studies, ROLANDO and/or cardiac catheterization, to evaluate for new onset cardiomyopathy with reduced ejection fraction (30-35%), however she continues to insist she does not have interest in undergoing invasive procedure and/or surgery of any kind. The risks have been discussed and emphasized where, she verbalized understanding and states that she will consider it. 08/14 - no new complaints. Seen up and ambulating in the room. Psych consult was placed overnight due to bizarre behavior. 08/15 - She is seen and examined at bedside this morning. She has no new complaints today. Continues to be pending psych consult. She continues to express little desire and pursuing cardiovascular workup for new onset cardiomyopathy and HFrEF. Discussions regarding possibility of palliative care will take place. Discussed with case management, some work to be done prior to discussing next apt with discharge. REVIEW OF SYSTEMS: Pertinent positives and negatives noted in HPI. Physical Exam: General: nontoxic, no distress, appears at stated age Derm: warm, dry, intact Head: atraumatic, normocephalic, symmetric Eyes: EOMI, anicteric sclera Mouth: no lip lesion, mucus membranes moist Cardiovascular: S1 S2 reg, no murmur, rubs, or gallops Lungs: CTA bilateral, no rales, no accessory muscle use Abdominal: soft, non-tender to palpataion, no appreciable organomegaly Extremities: no gross muscle atrophy, no edema, no contractures Neuro: Alert, Oriented, CNII-XII grossly intact, gait normal Psych: well appearing, appropriate affect Data Received Today: Labs: WBC 6.4, hemoglobin 11.7, hematocrit 36.8, platelet 285; sodium 134, potassium 3.6, bicarb 36, BUN 24, creatinine 0.92, AST 46, ALT 56 Imagining: Echocardiogram done yesterday showed EF 30-35%, with increased low ventricular diastolic diameter, severe right ventricular and right atrial dilation, evidence of moderate pulmonary hypertension, mild thickening /calcification of the anterior mitral valve leaflet with moderate thickening/calcification of the posterior mitral valve leaflet. Elongation of the anterior mitral valve leaflet. Severe mitral regurgitation with anteriorly directed mitral regurgitation jet and possible vegetation of the posterior MVL. Assessment and plan 53-year-old female with HFpEF (EF 55-60%), COPD not on home oxygen, paroxysmal atrial fibrillation anticoagulated on Eliquis, schizophrenia presenting with shortness of breath. ED documentation reviewed. Discussed with the patient. The patient is admitted for anticipated less than 2 midnight stay for evaluation of acute COPD exacerbation and acute heart failure exacerbation. #Chronic HFrEF, no longer in exacerbation (most recent echocardiogram 08/12/23 [facility] wed EF 30-35%) #Atrial fibrillation with RVR anticoagulated with Eliquis #Elevated troponin -Trend troponin: 0.055 -> 0.056 -> 0.067 -proBNP 8520 -Continue Xarelto 20 mg daily -Transition to Lasix 40 mg p.o. daily -Metoprolol XL (Toprol-XL) 100 mg p.o. twice daily -Initiate on GDMT: Aldactone 12.5 mg daily, Entresto 2426 twice daily, Farxiga 10 mg daily -Strict intake output, daily weights -Cardiac monitoring -Cardiology recommended ROLANDO and cardiac catheterization, which the patient declined interest in verbalizing understanding the risks - Pending psychiatric consultation to determine capacity, procedure will need to be readdressed with patient after confirming mental health baseline; attempted to reach out to her guardian was made today but the guardian was unavailable #Mitral vegetation, echocardiogram reviewed by cardiology determined suspicion for vegetation low #Severe mitral regurgitation -Needs ROLANDO; per cardiology, discussed with the patient importance of ROLANDO and possible cardiac catheterization, the patient declined while verbalizing understanding the risks -Blood cultures preliminarily negative; suspicion for endocarditis low at this time #Acute DVT reported reaction to Eliquis, now switched to Xarelto -Endorses bilateral LE swelling, left leg > right leg -Venous Doppler ultrasound shows acute/chronic DVT #COPD (no home O2), not in acute exacerbation -Patient currently breathing on room air, denies any cough or sputum production -Bilateral rhonchi noted, no wheezing -DuoNebs as needed -Monitor oxygen level, maintain between 88-92% #Hypocalcemia -Calcium 8.2, corrected calcium 9.2 -Tums 1000 mg p.o. every 4 hours as needed #Metabolic alkalosis, possibly secondary to being a CO2 retainer with components of diuretic use -Continue to reevaluate and determine need for diuretics -Discontinue as able, and continue to monitor BMP for resolution #Normocytic anemia -No acute bleeding -Continue to monitor CBC #Transaminitis, improving -AST 42, ALT 60 on 08/14/24 -Patient denies any abdominal pain -Likely secondary to congestive hepatopathy -Follow-up CMP DVT ppx: Xarelto 20 mg daily GI PPx: Pepcid 20 mg twice daily Code status: Full code F: None E: Replete as needed N: Heart healthy diet A: Ambulatory at baseline Anticipated discharge place: Pending clinical course Anticipated discharge time: Pending clinical course Dictation was produced using [employer] dictation software. please excuse any grammatical, word or spelling errors. Raymond Negro MD PGY-1 IM I saw and evaluated the patient during the graham and critical portions of this enc ounter, and discussed the case in detail with the resident author of this note, I agree with the Assessment and Plan, and my changes, if any, are highlighted in blue. Objective - Vital Signs Vital signs: Vital Signs Temp 98.2 F 08/15/24 04:00 Pulse 78 08/15/24 04:00 Resp 16 08/15/24 04:00 BP 85/65 08/15/24 04:00 Pulse Ox 96 08/15/24 04:00 FiO2 Intake & Output 08/14/24 08/15/24 08/15/24 18:59 06:59 18:59 Intake Total 490 720 Output Total 300 Balance 190 720 Weight 63.5 kg Intake: IV 10 Invasive Line 1 10 Oral 480 720 Output: Urine 300 Other: Voiding Method Toilet Toilet Bedside Commode Bedside Commode # Voids 2 3 - Labs CBC & Chem 7: 08/15/24 06:06 08/15/24 06:06 Labs: Abnormal Lab Results - Last 24 Hours (Table) 08/15/24 08/15/24 Range/Units 06:06 06:06 MCHC 29.7 L (31.0-37.0) g/dL RDW 16.5 H (11.5-15.5) % Sodium 132 L (137-145) mmol/L Chloride 96 L (98-107) mmol/L Carbon Dioxide 35 H (22-30) mmol/L BUN 22 H (7-17) mg/dL Glucose 104 H (74-99) mg/dL Microbiology - Last 24 Hours (Table) 08/12/24 08:29 Blood Culture - Preliminary Blood
[2024-08-15] MEDS ORDERED: OLANZapine 10 MG VIAL IM PRN (13:32)
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
[2024-08-15] MEDS: OLANZapine ODT 5 MG TAB PO PRN (20:54)
[2024-08-16 06:43] LABS: Basophils # (A) 0.05 10*3/uL (0.00-0.10); Basophils % (A) 0.9 %; Eosinophils # (A) 0.07 10*3/uL (0.04-0.35); Eosinophils % (A) 1.2 %; HCT 36.1 % (37.2-46.3); HGB 11.3 g/dL (12.0-15.0); Lymphocytes # (A) 1.69 10*3/uL (0.90-5.00); Lymphocytes % (A) 29.2 %; MCH 27.6 pg (27.0-32.0); MCHC 31.3 g/dL (32.0-37.0); Mean Platelet Volume 9.7 fL (9.5-12.2); Monocytes # (A) 0.77 10*3/uL (0.20-1.00); Monocytes % (A) 13.3 %; Neutrophils # (A) 3.19 10*3/uL (1.80-7.70); Neutrophils % (A) 55.1 %; Platelet Count 276 10*3/uL (140-440); RDW 16.8 % (11.5-14.5); WBC 5.79 10*3/uL (4.50-10.00)
[2024-08-16 06:58] LABS: African American GFR (CKD) 64 (>60 ml/min/1.73 sqM); Anion Gap 4 mmol/L; Blood Urea Nitrogen 27 mg/dL (7-17); Calcium 8.7 mg/dL (8.4-10.2); Carbon Dioxide 35 mmol/L (22-30); Chloride 97 mmol/L (98-107); Glucose 139 mg/dL (74-99); Non-African American GFR(CKD) 55 (>60 ml/min/1.73 sqM); Potassium 4.6 mmol/L (3.5-5.1); Sodium 136 mmol/L (137-145)
[2024-08-16] MEDS ORDERED: FUROSEMIDE 40 MG TAB PO SCH (09:00)
--- NOTE | 2024-08-16 11:12 | P.DS ---
Providers Date of admission: 08/11/24 02:52 Attending physician: Tan Pearson MD Consults: 08/14/24 06:23 Consult Physician Routine Consulting Provider: Levy Ramirez Reason/Comments: schizophrenia Do you want consulting provider notified?: Yes Primary care physician: Ilia Hernandez Hospital Course: Discharge diagnoses; #Chronic HFrEF, no longer in exacerbation (most recent echocardiogram 08/12/23 showed EF 30-35%) #Atrial fibrillation with RVR anticoagulated with Xarelto #Non-olguric MARLENI, likely secondary to over diuresis #Contraction alkalosis #Severe mitral regurgitation #Acute DVT reported reaction to Eliquis, now switched to Xarelto #COPD (no home O2), not in acute exacerbation #Hypocalcemia #Normocytic anemia Hospital course; 53-year-old female with HFrEF (EF 30-35%), COPD not on home oxygen, paroxysmal atrial fibrillation anticoagulated on Xarelto, history of DVT, schizophrenia, mild intellectual disability, presenting with shortness of breath. Patient states she felt short of breath and noticed increased swelling in her lower extremities and stomach for the past 3 days. Patient states she was told to call EMS if her swelling started to become worse.. Patient states swelling is worse on the left leg. She was given nebulizer treatment by EMS. Patient states she has been compliant with all her medication. During her stay she expressed that she has had a reaction to Eliquis, and switched to Xarelto per cardiology recommendation. Additionally, she underwent an echocardiogram which showed a left ventricular ejection fraction of 30-35%, with severe right sided ventricular and atrial dilation with evidence of moderate pulmonary hypertension and severe mitral regurgitation. She was undergoing diuresis for her exacerbation of HFrEF and initiated on guideline directed medical therapy with metoprolol, Farxiga, Aldactone and Entresto. She continued to deny any invasive procedure such as a cardiac catheterization to determine the nature of her new onset cardiomyopathy with reduced ejection fraction. Additionally, she was evaluated by psychiatry results of bizarre behavior exhibited, and they determined that she does have the capacity to make decisions for herself and had understanding of the consequences and risks/benefits. She does have a public guardian, so discussions were had to determine best course of action in terms of discharge. It was determined that will be best for her to be discharged with home care services and palliative care consultation with plans to have hospice consultation. She will be discharged on a total of 6 new medications and an increased dose and 1 medication that she had previously been taking. She verbalized understanding continue to take these medications as instructed as well as for regular follow-up with her primary care physician, as well as cardiology for possible further evaluation. There were specific instructions given upon discharge and within the discharge paperwork regarding holding certain medications for couple of days following discharge. Physical Exam: General: nontoxic, no distress, appears at stated age Derm: warm, dry, intact Head: atraumatic, normocephalic, symmetric Eyes: EOMI, anicteric sclera Mouth: no lip lesion, mucus membranes moist Cardiovascular: S1 S2 reg, no murmur, rubs, or gallops Lungs: CTA bilateral, no rales, no accessory muscle use Abdominal: soft, non-tender to palpataion, no appreciable organomegaly Extremities: no gross muscle atrophy, no edema, no contractures Neuro: Alert, Oriented, CNII-XII grossly intact, gait normal Psych: well appearing, appropriate affect Dictation was produced using [employer] dictation software. please excuse any grammatical, word or spelling errors. Raymond Negro MD PGY-1 IM I saw and evaluated the patient during the graham and critical portions of this encounter, and discussed the case in detail with the resident author of this note, I agree with the Assessment and Plan, and my changes, if any, are highlighted in blue. A total of 48 minutes were spent on this discharge Patient Condition at Discharge: Stable Plan - Discharge Summary New Discharge Prescriptions: New Sacubitril/Valsartan [Entresto 24 mg-26 mg Tablet] 1 each PO BID #30 tablet Furosemide [Lasix] 20 mg PO DAILY #30 tab Metoprolol Succinate (ER) [Toprol XL] 100 mg PO BID #60 tab Spironolactone [Aldactone] 12.5 mg PO DAILY #30 tablet Dapagliflozin Propanediol [Farxiga] 10 mg PO DAILY #30 tablet Famotidine [Pepcid] 20 mg PO BID #60 tab Rivaroxaban [Xarelto] 20 mg PO W/SUPPER #30 tab Continue Benztropine Mesylate [Cogentin] 0.5 mg PO BID 30 Days #60 tab Haloperidol Decanoate [Haldol D] 150 mg IM Q21D #1 each Discontinued Apixaban [Eliquis] 5 mg PO BID 30 Days #60 tab Metoprolol Succinate (ER) [Toprol Xl] 37.5 mg PO BID Discharge Medication List Benztropine Mesylate [Cogentin] 0.5 mg PO BID 30 Days #60 tab 03/16/24 [Rx] Haloperidol Decanoate [Haldol D] 150 mg IM Q21D #1 each 03/16/24 [Rx] Dapagliflozin Propanediol [Farxiga] 10 mg PO DAILY #30 tablet 08/16/24 [Rx] Famotidine [Pepcid] 20 mg PO BID #60 tab 08/16/24 [Rx] Furosemide [Lasix] 20 mg PO DAILY #30 tab 08/16/24 [Rx] Metoprolol Succinate (ER) [Toprol XL] 100 mg PO BID #60 tab 08/16/24 [Rx] Rivaroxaban [Xarelto] 20 mg PO W/SUPPER #30 tab 08/16/24 [Rx] Sacubitril/Valsartan [Entresto 24 mg-26 mg Tablet] 1 each PO BID #30 tablet 08/16/24 [Rx] Spironolactone [Aldactone] 12.5 mg PO DAILY #30 tablet 08/16/24 [Rx] Follow up Appointment(s)/Referral(s): Kervin Acosta MD [STAFF PHYSICIAN] - 1 Week Ilia Hernandez MD [Primary Care Provider] - 1-2 days [facility] Visiting Nurse, [NON-STAFF] - Ambulatory/Diagnostic Orders: Basic Metabolic Panel [LAB.AMB] Location: None Selected Activity/Diet/Wound Care/Special Instructions: Hold diuretics, entresto, farxiga, and spironolactone for 48 hours and repeat labs in 3-5 days. Please be sure to follow up with your primary care physician regularly and a tailings dam laborer, both within 1 week of discharge. Activity: As tolerated. Take breaks as needed. Diet: Heart healthy and carb consistent diet. Avoid salts, or foods with hidden salts such as canned or boxed foods and frozen dinners. Extra salt makes your heart work harder and traps the fluid in your body for longer. Special Instructions: Weigh yourself every morning after you urinate. If you gain 3 pounds overnight or more than 5 pounds in one week, call your primary physician and tailings dam laborer for guidance on your medications or they may want to see you in their office. Keep a daily log of your weights and be sure to bring with you at follow up visits with your PCP and tailings dam laborer. Take all of your medications as directed, especially your water pills. NEVER skip a dose. And remember to keep all of your doctor's appointments and follow- up as needed. Elevate your legs when you are not up moving around to help with circulation and prevent swelling. Compression stockings are also a great way to improve lower extremity circulation and prevent/improve lower extremity edema. Call your primary care provider and tailings dam laborer if you notice any extra swelling in your legs, ankles, feet or abdomen, if you have a new dry cough, if your shortness of breath worsens with activity or at rest, or if you feel more fatigued. Thank you for allowing us to participate in your care, it was truly a pleasure having you for our patient!!! Discharge Disposition: HOME WITH HOME HEALTH SERVICES
[2024-08-17 07:00] LABS: African American GFR (CKD) >90 (>60 ml/min/1.73 sqM); Anion Gap 4 mmol/L; Blood Urea Nitrogen 22 mg/dL (7-17); Calcium 8.9 mg/dL (8.4-10.2); Carbon Dioxide 32 mmol/L (22-30); Chloride 97 mmol/L (98-107); Glucose 114 mg/dL (74-99); Magnesium 2.1 mg/dL (1.6-2.3); Non-African American GFR(CKD) 78 (>60 ml/min/1.73 sqM); Potassium 4.6 mmol/L (3.5-5.1); Sodium 133 mmol/L (137-145)
[2024-08-17] MEDS: FUROSEMIDE 40 MG TAB PO SCH (10:43)
[2024-08-17 11:21] VITALS: BP 90/64; PULSE 105; RESP 14; TEMP 97.3
--- NOTE | 2024-08-17 11:29 | P.DS ---
Providers Date of admission: 08/11/24 02:52 Expected date of discharge: 08/17/24 Attending physician: Tan Pearson MD Consults: 08/14/24 06:23 Consult Physician Routine Consulting Provider: Levy Ramirez Consult Reason/Comments: schizophrenia Do you want consulting provider notified?: Yes Primary care physician: Ilia Hernandez Hospital Course: Discharge Diagnosis: Acute on Chronic systolic heart failure exacerbation. Echocardiogram was completed showing a reduced EF of 30 to 35%, severe right ventricular dilation with moderate pulmonary hypertension, severe right atrial dilation, severely increased left atrial diameter, moderate thickening/calcification of the posterior mitral valve leaflet with severe mitral regurgitation. Cardiology recommended ROLANDO to assess the mitral valve and rule out vegetation. ROLANDO and cardiac catheterization were strontly recommended to patient however, patient stated she would not to undergo any invasive procedures and refused. Patient underwent successful IV diuresis. Multiple medication changes were made during this admission including discontinuation of Eliquis and metoprolol and patient was started on Xarelto 20 mg daily, and increased dose of metoprolol to 100 mg twice daily, Lasix 20 mg daily, Aldactone 12.5 mg daily, and Entresto 24-26 mg tablet twice daily. Home oxygen evaluation was completed. Patient 96% on room air and later showing 91% on room air at rest and 96% with ambulation. Therefore not meeting home oxygen requirements. Patient is medically optimized for discharge at this time and to follow-up outpatient with PCP in 1 to 2 days, cisco consultant in 1 week, and is being discharged home with [facility] care. Paroxysmal atrial fibrillation with RVR. Anticoagulated with Xarelto. Severe mitral regurgitation, patient was strongly recommended to undergo ROLANDO and cardiac catheterization but refused. She was evaluated by psychiatry stating patient does have decision-making capacity. Acute DVT while on Eliquis, now switched to Xarelto Elevated troponins, flat. Secondary to CHF exacerbation COPD (no home O2), not in acute exacerbation Nicotine dependence, recommend smoking cessation. Non-olguric MARLENI, secondary to diuresis, Resolved Normocytic anemia Hospital Course: Patient is a 53-year-old female with a past medical history of chronic systolic heart failure with previously known EF of 30 to 35%, COPD not home oxygen dependent but with continued nicotine dependence, paroxysmal atrial fibrillation on anticoagulation, schizophrenia, and mild intellectual disability with guardian. She presented to the hospital on 08/11/2024 secondary to reports of shortness of breath. Upon arrival to our facility, patient underwent evaluation in the emergency department. Vital signs upon arrival show blood pressure 118/89, heart rate 122, respiratory rate 20, temp 98.3 F, and SpO2 of 97% on room air. EKG was completed showing atrial fibrillation with a rapid ventricular response at 124 bpm and occasional PVCs. Chest x-ray completed showing mild CHF with small bilateral pleural effusions. Labs were completed and reviewed. CBC showing normocytic anemia with hemoglobin of 11.3. Coagulation profile showing a low PTT of 21.2 otherwise normal findings. BMP showing hyponatremia with sodium of 133 and mild prerenal azotemia with BUN of 19. Blood glucose was 118. Magnesium normal findings at 1.8. Liver profile showing elevated AST of 84 and ALT of 88 with low total protein of 5.1 and albumin of 2.8. Troponin was elevated at 0.055 and proBNP was 8520. Cepheid 4 Plex viral panel negative for influenza A, influenza B, RSV, and COVID. Patient was started on IV diuresis and admitted under our services for acute on chronic systolic heart failure exacerbation and elevated troponin. Cardiology was consulted troponins were trended resulting at 0.055, 0.056, 0.067. Left lower extremity Doppler was completed showing concerns for a DVT in the left lower femoral vein and left lower popliteal and upper calf veins. Patient was started on Xarelto secondary to DVT while on Eliquis. Echocardiogram was completed showing a reduced EF of 30 to 35%, severe right ventricular dilation with moderate pulmonary hypertension, severe right atrial dilation, severely increased left atrial diameter, moderate thickening/calcification of the posterior mitral valve leaflet with severe mitral regurgitation. Cardiology recommended ROLANDO to assess the mitral valve and rule out vegetation. ROLANDO and cardiac catheterization were strontly recommended to patient however, patient stated she would not to undergo any invasive procedures and refused. Patient does have a guardian and psychiatry was consulted to evaluate patient's decision making capabilities. Psychiatry stated patient does not meet inpatient criteria for psychiatric admission and does have decision-making capacity and is able to reason through and communicate/appreciate the risks, benefits, and alternatives of treatment and is able to sign AMA forms and/or refuse procedures. Patient underwent successful IV diuresis. Multiple medication changes were made during this admission including discontinuation of Eliquis and metoprolol and patient was started on Xarelto 20 mg daily, and increased dose of metoprolol to 100 mg twice daily, Lasix 20 mg daily, Aldactone 12.5 mg daily, and Entresto 24-26 mg tablet twice daily. Home oxygen evaluation was completed. Patient 96% on room air and later showing 91% on room air at rest and 96% with ambulation. Therefore not meeting home oxygen requirements. She is medically optimized for discharge at this time. Patient to follow-up outpatient with PCP in 1 to 2 days, cisco consultant in 1 week, and is being discharged home with [facility]. geriatric case manager and social services technician in contact with guardian regarding discharge. geriatric case manager also provided patient's guardian with outpatient resources and [facility] homes, group homes, and assisted living facilities. Physical exam: Patient seen and examined at bedside. Vital signs reviewed and stable. General: Nontoxic, no distress and appears stated age. Derm: Skin warm and dry, normal coloration for ethnicity. Head: Atraumatic, normocephalic and symmetric. Eyes: EOM's intact, no lid lag, and anicteric sclera Mouth: no lip lesions, mucus membranes moist Cardiovascular: regular rate and rhythm with normal S1S2, systolic murmur, positive posterior tibial pulses bilaterally, and cap refill < 2 seconds. Lungs: Respirations even, regular, and unlabored on room air. Lungs CTA bilaterally, no rhonchi, no rales, no wheezing, and no accessory muscle usage. Abdominal: soft, nontender to palpation, no guarding, no appreciable organomegaly Ext: ROM intact. No gross muscle atrophy, scant lower extremity edema, no contractures Neuro: Speech clear, face symmetrical and CN II-XII grossly intact with no noted focal neuro deficits Psych: Alert and oriented to person, place, time, and situation. Appropriate and pleasant affect. A total of 37 minutes of time were spent preparing this complex discharge summary. Pt was discharged on 08/17/24 at 9:29 AM Patient was seen independently by Nurse Practitioner. This document was prepared using [email or web address] dictation software. Please allow for errors in packager hand while rare they do occur. Naveen Rankin NP rendered care for this patient independently, reviewed the findings and plan as documented in the note above. I did not physically speak with or examine the patient on this date. Patient Condition at Discharge: Stable Plan - Discharge Summary New Discharge Prescriptions: New Sacubitril/Valsartan [Entresto 24 mg-26 mg Tablet] 1 each PO BID #30 tablet Furosemide [Lasix] 20 mg PO DAILY #30 tab Metoprolol Succinate (ER) [Toprol XL] 100 mg PO BID #60 tab Spironolactone [Aldactone] 12.5 mg PO DAILY #30 tablet Dapagliflozin Propanediol [Farxiga] 10 mg PO DAILY #30 tablet Famotidine [Pepcid] 20 mg PO BID #60 tab Rivaroxaban [Xarelto] 20 mg PO W/SUPPER #30 tab Continue Benztropine Mesylate [Cogentin] 0.5 mg PO BID 30 Days #60 tab Haloperidol Decanoate [Haldol D] 150 mg IM Q21D #1 each Discontinued Apixaban [Eliquis] 5 mg PO BID 30 Days #60 tab Metoprolol Succinate (ER) [Toprol Xl] 37.5 mg PO BID Discharge Medication List Benztropine Mesylate [Cogentin] 0.5 mg PO BID 30 Days #60 tab 03/16/24 [Rx] Haloperidol Decanoate [Haldol D] 150 mg IM Q21D #1 each 03/16/24 [Rx] Dapagliflozin Propanediol [Farxiga] 10 mg PO DAILY #30 tablet 08/16/24 [Rx] Famotidine [Pepcid] 20 mg PO BID #60 tab 08/16/24 [Rx] Furosemide [Lasix] 20 mg PO DAILY #30 tab 08/16/24 [Rx] Metoprolol Succinate (ER) [Toprol XL] 100 mg PO BID #60 tab 08/16/24 [Rx] Rivaroxaban [Xarelto] 20 mg PO W/SUPPER #30 tab 08/16/24 [Rx] Sacubitril/Valsartan [Entresto 24 mg-26 mg Tablet] 1 each PO BID #30 tablet 08/16/24 [Rx] Spironolactone [Aldactone] 12.5 mg PO DAILY #30 tablet 08/16/24 [Rx] Follow up Appointment(s)/Referral(s): Kervin Acosta MD [STAFF PHYSICIAN] - 1 Week [facility], [NON-STAFF] - 1 Week Ilia Hernandez MD [Primary Care Provider] - 1-2 days Ambulatory/Diagnostic Orders: Basic Metabolic Panel [LAB.AMB] Location: None Selected Patient Instructions/Handouts: Heart Failure (DC), Mitral Regurgitation (DC), How to Stop Smoking (DC) Activity/Diet/Wound Care/Special Instructions: Please be sure to follow up with your primary care physician regularly and a cisco consultant, both within 1 week of discharge. Activity: As tolerated. Take breaks as needed. Diet: Heart healthy and carb consistent diet. Avoid salts, or foods with hidden salts such as canned or boxed foods and frozen dinners. Extra salt makes your heart work harder and traps the fluid in your body for longer. Special Instructions: Weigh yourself every morning after you urinate. If you gain 3 pounds overnight or more than 5 pounds in one week, call your primary physician and cisco consultant for guidance on your medications or they may want to see you in their office. Keep a daily log of your weights and be sure to bring with you at follow up visits with your PCP and cisco consultant. Take all of your medications as directed, especially your water pills. NEVER skip a dose. And remember to keep all of your doctor's appointments and follow- up as needed. Elevate your legs when you are not up moving around to help with circulation and prevent swelling. Compression stockings are also a great way to improve lower extremity circulation and prevent/improve lower extremity edema. Call your primary care provider and cisco consultant if you notice any extra swelling in your legs, ankles, feet or abdomen, if you have a new dry cough, if your shortness of breath worsens with activity or at rest, or if you feel more fatigued. Thank you for allowing us to participate in your care, it was truly a pleasure having you for our patient!!! Discharge Disposition: HOME WITH HOME HEALTH SERVICES
== END 2024-08-17 15:38 | disposition home health service (06) | DRG 201 ==
LOC: EC 00:53 → 3SCARD 02:52
PROVIDERS: ADMIT Internal Medicine; ATTEND Internal Medicine
DX: I48.0 Paroxysmal atrial fibrillation (principal); J44.9 Chronic obstructive pulmonary disease, unspecified; I08.1 Rheumatic disorders of both mitral and tricuspid valves; F20.9 Schizophrenia, unspecified; E83.51 Hypocalcemia; I50.43 Acute on chronic combined systolic (congestive) and diastolic (congestive) heart failure; K76.1 Chronic passive congestion of liver; I49.3 Ventricular premature depolarization; R79.89 Other specified abnormal findings of blood chemistry; T50.2X5A Adverse effect of carbonic-anhydrase inhibitors, benzothiadiazides and other diuretics, initial encounter; N17.9 Acute kidney failure, unspecified; Z11.52 Encounter for screening for COVID-19; Z79.01 Long term (current) use of anticoagulants; X58.XXXA Exposure to other specified factors, initial encounter; D64.9 Anemia, unspecified; E87.1 Hypo-osmolality and hyponatremia; E87.3 Alkalosis; F17.210 Nicotine dependence, cigarettes, uncomplicated; F70 Mild intellectual disabilities; I25.5 Ischemic cardiomyopathy; I27.20 Pulmonary hypertension, unspecified; Z62.810 Personal history of physical and sexual abuse in childhood; Z79.899 Other long term (current) drug therapy; Z82.49 Family history of ischemic heart disease and other diseases of the circulatory system; Z88.6 Allergy status to analgesic agent
CPT/HCPCS: 36415; 71046; 80048; 80053; 83735; 83880; 84443; 84484; 85025; 85610; 85652; 85730; 86140; 87040; 87636; 93005; 93306; 94760; 96365; 96366; 96368; 96375; 99291

== ENCOUNTER 2024-10-03 03:06 | Emergency (ER) | payer OTHER ==
[2024-10-03 03:22] VITALS: BP 101/71; PULSE 95; RESP 17; TEMP 97.9
--- NOTE | 2024-10-03 05:21 | ED ---
General Adult HPI - General Chief complaint: Extremity Problem,Nontraumatic Stated complaint: swelling Time Seen by Provider: 10/03/24 03:10 Source: patient, EMS Mode of arrival: EMS Limitations: no limitations - History of Present Illness Initial comments: This patient is a 53-year-old woman with history of CHF, here to have evaluation of bilateral leg edema which she noticed was worsening when she went to take a bath. The patient had also gone to [facility] and been evaluated for same. She states that there was told that she needed to take diuretic medication. The patient not having associated symptoms. No cough, dyspnea, chest pain. -: days(s) Location: left, right, lower extremity Radiation: non-radiation Severity scale (1-10): 0 Consistency: constant Improves with: none Worsens with: none Associated Symptoms: denies other symptoms Treatments Prior to Arrival: none - Related Data Previous Rx's Medication Instructions Recorded Benztropine Mesylate [Cogentin] 0.5 mg PO BID 30 Days #60 tab 03/16/24 Haloperidol Decanoate [Haldol D] 150 mg IM Q21D #1 each 03/16/24 Dapagliflozin Propanediol [Farxiga] 10 mg PO DAILY #30 tablet 08/16/24 Famotidine [Pepcid] 20 mg PO BID #60 tab 08/16/24 Furosemide [Lasix] 20 mg PO DAILY #30 tab 08/16/24 Metoprolol Succinate (ER) [Toprol 100 mg PO BID #60 tab 08/16/24 XL] Rivaroxaban [Xarelto] 20 mg PO W/SUPPER #30 tab 08/16/24 Sacubitril/Valsartan [Entresto 24 1 each PO BID #30 tablet 08/16/24 mg-26 mg Tablet] Spironolactone [Aldactone] 12.5 mg PO DAILY #30 tablet 08/16/24 Allergies Allergy/AdvReac Type Severity Reaction Status Date / Time aspirin AdvReac Nausea & Verified 08/11/24 07:46 Vomiting Review of Systems ROS Statement: Those systems with pertinent positive or pertinent negative responses have been documented in the HPI. ROS Other: All systems not noted in ROS Statement are negative. Constitutional: Denies: fever, chills Respiratory: Denies: cough, dyspnea Cardiovascular: Reports: edema. Denies: chest pain, palpitations, syncope Gastrointestinal: Denies: abdominal pain, vomiting, diarrhea Genitourinary: Denies: dysuria, hematuria Musculoskeletal: Denies: back pain Skin: Denies: rash Neurological: Denies: headache, weakness Past Medical History Past Medical History: No Reported History Additional Past Medical History / Comment(s): polysubstance abuse. pt states she has not used drugs x 3 years. History of Any Multi-Drug Resistant Organisms: None Reported Past Surgical History: No Surgical Hx Reported Additional Past Surgical History / Comment(s): None stated Past Anesthesia/Blood Transfusion Reactions: No Reported Reaction Past Psychological History: No Psychological Hx Reported, Schizophrenia Smoking Status: Current every day smoker Past Alcohol Use History: None Reported Past Drug Use History: None Reported - Past Family History Mother Family Medical History: Myocardial Infarction ([place]) Additional Family Medical History / Comment(s): from heart attack Father Additional Family Medical History / Comment(s): from Heart attack General Exam General appearance: alert, in no apparent distress Head exam: Present: atraumatic, normocephalic Eye exam: Present: normal appearance. Absent: scleral icterus, conjunctival injection ENT exam: Present: normal oropharynx Neck exam: Present: normal inspection Respiratory exam: Present: normal lung sounds bilaterally. Absent: respiratory distress, wheezes, rales, rhonchi, stridor, accessory muscle use Cardiovascular Exam: Present: regular rate, normal rhythm, normal heart sounds. Absent: systolic murmur, diastolic murmur, rubs, gallop GI/Abdominal exam: Present: soft. Absent: tenderness, guarding, rebound, mass Extremities exam: Present: full ROM, normal capillary refill, pedal edema. Absent: tenderness, calf tenderness Back exam: Present: normal inspection. Absent: CVA tenderness (R), CVA tenderness (L) Neurological exam: Present: alert Skin exam: Present: warm, dry, intact, normal color. Absent: rash Course Vital Signs 10/03/24 10/03/24 03:12 05:04 Temperature 97.9 F Pulse Rate 95 Respiratory 17 Rate Blood Pressure 101/71 O2 Sat by Pulse 93 L 100 Oximetry EKG Findings - EKG Results: EKG: interpreted by ERMD EKG shows: tachycardia, atrial fibrillation (Rate 106 bpm) - Blocks, [place], Hypertrophy, ST Abn: QRS axis and voltage: right axis deviation (+90 to +180) (Borderline) - [place], Pacemaker, Normal: Myocardial infarction: septal [place] (old age or indeterminate) (Possible old septal infarct) Medical Decision Making - Medical Decision Making The patient had chest x-ray that I interpreted as showing presence of vascular congestion consistent with CHF. Was pt. sent in by a medical professional or institution (, PA, [employer], urgent care, hospital, or correction...) When possible be specific @ -[No] Did you speak to anyone other than the patient for history (EMS, parent, family, police, friend...)? What history was obtained from this source @ -[No] Did you review nursing and triage notes (agree or disagree)? Why? @ -[I reviewed and agree with nursing and triage notes] Were old charts reviewed (outside hosp., previous admission, EMS record, old EKG, old radiological studies, urgent care reports/EKG's, correction records)? Report findings @ -[No old charts were reviewed] Differential Diagnosis (chest pain, altered mental status, abdominal pain women, abdominal pain men, vaginal bleeding, weakness, fever, dyspnea, syncope, headache, dizziness, GI bleed, back pain, seizure, CVA, palpatations, mental health, musculoskeletal)? @ -[Differential diagnosis of bilateral leg edema includes congestive heart failure, kidney failure, liver disease, anemia, other causes of reduced oncotic pressure, DVT, this list not all inclusive. EKG interpreted by me (3pts min.). @ -[I interpreted as above] X-rays interpreted by me (1pt min.). @ -[I interpreted as above CT interpreted by me (1pt min.). @ -[None done] U/S interpreted by me (1pt. min.). @ -[None done] What testing was considered but not performed or refused? (CT, X-rays, U/S, labs)? Why? @ -[None] What meds were considered but not given or refused? Why? @ -[None] Did you discuss the management of the patient with other professionals (professionals i.e. CARLOS Ernts, [employer], lab, RT, psych nurse, social work manager, account manager relief, teacher, security patrol officer, residential case manager)? Give summary @ -[No] Was smoking cessation discussed for >3mins.? @ -[No] Was critical care preformed (if so, how long)? @ -[No] Were there social determinants of health that impacted care today? How? (Homelessness, low income, unemployed, alcoholism, drug addiction, transportation, low edu. Level, literacy, decrease access to med. care, half-way, rehab)? @ -[No] Was there de-escalation of care discussed even if they declined (Discuss DNR or withdrawal of care, Hospice)? DNR status @ -[No] What co-morbidities impacted this encounter? (DM, HTN, Smoking, COPD, CAD, Cancer, CVA, ARF, Chemo, Hep., AIDS, mental health diagnosis, sleep apnea, mor bid obesity)? @ -[Congestive heart failure Was patient admitted / discharged? Hospital course, mention meds given and route, prescriptions, significant lab abnormalities, going to OR and other pertinent info. @ -[Patient is 54-year-old woman here to have evaluation of leg edema. The patient does have history of congestive heart failure in the workup consistent with exacerbation of this condition. The patient is given diuretics here. We discussed appropriate further care and follow-up as well as return parameters. Undiagnosed new problem with uncertain prognosis? @ -[No] Drug Therapy requiring intensive monitoring for toxicity (Heparin, Nitro, Insulin, Cardizem)? @ -[No] Were any procedures done? @ -[No] Diagnosis/symptom? @ -[Acute exacerbation of congestive heart failure Bilateral leg edema Acute, or Chronic, or Acute on Chronic? @ -[Acute on chronic Uncomplicated (without systemic symptoms) or Complicated (systemic symptoms)? @ -[Uncomplicated Side effects of treatment? @ -[No] Exacerbation, Progression, or Severe Exacerbation? @ -[No] Poses a threat to life or bodily function? How? (Chest pain, [place], [place], pneumonia, PE, COPD, DKA, ARF, appy, cholecystitis, CVA, Diverticulitis, Homicidal, Suicidal, threat to staff... and all critical care pts) @ -[No] All treatments are based on ideal body weight as in ED triage - Lab Data Result diagrams: 10/03/24 05:00 10/03/24 05:00 Lab Results 10/03/24 10/03/24 10/03/24 Range/Units 05:00 05:00 05:00 WBC 6.17 (4.50-10.00) 10*3/uL RBC 4.45 (4.10-5.20) 10*6/uL Hgb 11.5 L (12.0-15.0) g/dL Hct 36.2 L (37.2-46.3) % MCV 81.3 D (80.0-97.0) fL MCH 25.8 L (27.0-32.0) pg MCHC 31.8 L (32.0-37.0) g/dL Plt Count 194 (140-440) 10*3/uL MPV 9.3 L (9.5-12.2) fL Immature Gran % (Auto) 0.3 % Neutrophils % 62.4 % Lymphocytes % 23.5 % Monocytes % 11.5 % Eosinophils % 1.8 % Basophils % 0.5 % Immature Gran # 0.02 (0.00-0.04) 10*3/uL Neutrophils # 3.85 (1.80-7.70) 10*3/uL Lymphocytes # 1.45 (0.90-5.00) 10*3/uL Monocytes # 0.71 (0.20-1.00) 10*3/uL Eosinophils # 0.11 (0.04-0.35) 10*3/uL Basophils # 0.03 (0.00-0.10) 10*3/uL Sodium 133 L (137-145) mmol/L Potassium 4.2 (3.5-5.1) mmol/L Chloride 96 L (98-107) mmol/L Carbon Dioxide 30 (22-30) mmol/L Anion Gap 7 mmol/L BUN 16 (7-17) mg/dL Creatinine 0.81 (0.52-1.04) mg/dL Est GFR (CKD-EPI)AfAm >90 (>60 ml/min/1.73 sqM) Est GFR (CKD-EPI)NonAf 83 (>60 ml/min/1.73 sqM) Glucose 117 H (74-99) mg/dL Calcium 8.8 (8.4-10.2) mg/dL Total Bilirubin 0.8 (0.2-1.3) mg/dL AST 32 (14-36) U/L ALT 25 (4-34) U/L Alkaline Phosphatase 93 (38-126) U/L Troponin I 0.017 (0.000-0.034) ng/mL NT-Pro-B Natriuret Pep 58563 pg/mL Total Protein 5.6 L (6.3-8.2) g/dL Albumin 3.2 L (3.5-5.0) g/dL - EKG Data -: EKG Interpreted by Me Disposition Clinical Impression: Congestive heart failure Disposition: HOME SELF-CARE Condition: Good Instructions (If sedation given, give patient instructions): Heart Failure (DC), Leg Edema (ED) Is patient prescribed a controlled substance at d/c from ED?: No Referrals: None,Stated [Primary Care Provider] - 1-2 days
[2024-10-03 05:25] LABS: ALT 25 U/L (4-34); AST 32 U/L (14-36); African American GFR (CKD) >90 (>60 ml/min/1.73 sqM); Albumin 3.2 g/dL (3.5-5.0); Alkaline Phosphatase 93 U/L (38-126); Anion Gap 7 mmol/L; Blood Urea Nitrogen 16 mg/dL (7-17); Calcium 8.8 mg/dL (8.4-10.2); Carbon Dioxide 30 mmol/L (22-30); Chloride 96 mmol/L (98-107); Glucose 117 mg/dL (74-99); Non-African American GFR(CKD) 83 (>60 ml/min/1.73 sqM); Potassium 4.2 mmol/L (3.5-5.1); Sodium 133 mmol/L (137-145); Total Bilirubin 0.8 mg/dL (0.2-1.3); Total Protein 5.6 g/dL (6.3-8.2)
[2024-10-03 05:33] LABS: NT-Pro-B-Type Natriuretic Pept 12700 pg/mL
[2024-10-03 05:34] LABS: Basophils # (A) 0.03 10*3/uL (0.00-0.10); Basophils % (A) 0.5 %; Eosinophils # (A) 0.11 10*3/uL (0.04-0.35); Eosinophils % (A) 1.8 %; HCT 36.2 % (37.2-46.3); HGB 11.5 g/dL (12.0-15.0); Lymphocytes # (A) 1.45 10*3/uL (0.90-5.00); Lymphocytes % (A) 23.5 %; MCH 25.8 pg (27.0-32.0); MCHC 31.8 g/dL (32.0-37.0); Mean Platelet Volume 9.3 fL (9.5-12.2); Monocytes # (A) 0.71 10*3/uL (0.20-1.00); Monocytes % (A) 11.5 %; Neutrophils # (A) 3.85 10*3/uL (1.80-7.70); Neutrophils % (A) 62.4 %; Platelet Count 194 10*3/uL (140-440); RBC 4.45 10*6/uL (4.10-5.20); RDW 18.6 % (11.5-14.5); WBC 6.17 10*3/uL (4.50-10.00)
[2024-10-03 05:37] LABS: MCV 81.3 fL (80.0-97.0)
--- NOTE | 2024-10-03 07:10 | XR ---
EXAMINATION TYPE: XR chest 2V DATE OF EXAM: 10/03/2024 5:42 AM COMPARISON: 08/11/2024 CLINICAL INDICATION: Female, 53 years old with history of exertional dyspnea, TECHNIQUE: XR chest 2V view(s) obtained. FINDINGS: The heart size is enlarged. The pulmonary vasculature is somewhat prominent. Mild diffuse increased lung markings are present. Small left pleural effusion is present. There is hy perinflation with diaphragms compatible with COPD. IMPRESSION: 1. Clinical correlation for congestive heart failure. 2. [facility], , 10/03/2024 7:07 AM
[2024-10-03] MEDS: SPIRONOLACTONE 25 MG TAB PO STA (07:37)
[2024-10-03] MEDS: FUROSEMIDE 20 MG TAB PO STA (07:37)
== END 2024-10-03 07:41 | disposition home or self-care (01) ==
LOC: EC 03:06
DX: I50.9 Heart failure, unspecified (principal); I48.91 Unspecified atrial fibrillation; R00.0 Tachycardia, unspecified; F17.200 Nicotine dependence, unspecified, uncomplicated; Z88.6 Allergy status to analgesic agent
CPT/HCPCS: 36415; 71046; 80053; 83880; 84484; 85025; 93005; 99284